=== PATIENT | female | born 1965 | race Two or more races ===

== ENCOUNTER → 2018-08-03 | Outpatient (CLI) | payer MEDICARE, OTHER ==
[2018-08-03 14:12] VITALS: BP 212/124; PULSE 86; RESP 16
--- NOTE | 2018-08-03 18:43 | P.PAINCN ---
History of Present Illness - Reason for Consult Consult date: 08/03/18 Low back pain, right lower extremity weakness - Chief Complaint Low back pain, right lower extremity weakness - History of Present Illness 52-year-old female presents to clinic as a new patient. She presents with a chief complaint of low back pain and pain radiating down to her right leg. She has had this pain for greater than 7 years. She's been followed up in [place] by both a pain physician and a neurosurgeon. She says she had 1 "injection" that did not provide her with any relief. She had an MRI done but did not bring the CD or the results with her. She's been evaluated by a spine surgeon who said she needs surgery and is actually scheduled to have surgery this Friday. Her surgeon had been prescribing her Rodman, and she is here seeking a prescription for Rodman before her surgery. VAS today is a 7 out of 10 in severity describes it as a throbbing, aching, sharp, constant pain with radiating symptoms into her right lower extremities which include throbbing electric sharp pain. She's noted progressive weakness over the past few years in her right leg. She does not have any complaints of bowel or bladder incontinence, she's never had any lumbar spine surgery, she underwent physical therapy with no benefit, and she is never visited a chiropractor. 13 point review of systems was conducted and negative except as mentioned in HPI Physical exam: Gen: A&O 3, NAD, obese HEENT: Atraumatic, normocephalic, pupils equal and reactive to light Integ: No skin abnormalities or lesions noted CVS: Regular rate and rhythm, adequate peripheral pulses Pulmn: Nonlabored, no wheezing Lumbar spine: Palpation: Tenderness to palpation along paraspinal musculature Inspection: No deformities or scoliosis Range of motion: Pain with flexion Facet loading: Positive bilateral at L4-L5 LOLY test: Negative Reflexes: Diminished patellar and Achilles reflex on the right Neuromuscular: Sensation: Diminished along the L4, L5 and S1 dermatomes on the right. Mostly along dorsal aspect of the foot on the right Motor: 3+/5 (EHL), 4/5 Dorsiflexion, 4/5 Plantar Flexion on right. Gait: Antalgic gait, no assist device utilized Past Medical History Past Medical History: Asthma, Cancer, Diabetes Mellitus, GERD/Reflux, Hyperlipidemia, Osteoarthritis (OA) Additional Past Medical History / Comment(s): MOUTH CANCER. History of Any Multi-Drug Resistant Organisms: None Reported Past Surgical History: Cholecystectomy, Hysterectomy, Orthopedic Surgery Additional Past Surgical History / Comment(s): EYE SURGERY. Past Anesthesia/Blood Transfusion Reactions: No Reported Reaction Smoking Status: Current every day smoker Medications and Allergies Home Medications Medication Instructions Recorded Confirmed Type DULoxetine HCL [Cymbalta] 60 mg PO DAILY 08/03/18 08/03/18 History EPINEPHrine (Auto Inject) [Epipen] 0.3 mg IM DIRECTED 08/03/18 08/03/18 History Ezetimibe [Zetia] 10 mg PO DAILY 08/03/18 08/03/18 History Ibuprofen [Motrin] 800 mg PO Q6H PRN 08/03/18 08/03/18 History Lisinopril [Zestril] 5 mg PO DAILY 08/03/18 08/03/18 History Lovastatin [Mevacor] 10 mg PO HS 08/03/18 08/03/18 History Methocarbamol [Robaxin] 500 mg PO Q4H 08/03/18 08/03/18 History Non-Formulary Drug [Non Formulary 1 tab PO DAILY 08/03/18 08/03/18 History Drug] Omeprazole [PriLOSEC] 10 mg PO DAILY 08/03/18 08/03/18 History Paliperidone Palmitate [Invega 78 mg IM QMONTH 08/03/18 08/03/18 History Sustenna] Sucralfate [Carafate] 1 gm PO DAILY 08/03/18 08/03/18 History Allergies Allergy/AdvReac Type Severity Reaction Status Date / Time bee venom protein (honey bee) Allergy Severe Anaphylaxis Verified 08/03/18 13:47 lemon Allergy Severe Anaphylaxis Verified 08/03/18 13:47 Penicillins Allergy Severe Anaphylaxis Verified 08/03/18 13:47 tramadol [From Ultram] Allergy Severe Anaphylaxis Verified 08/03/18 13:47 tablet vitamins Allergy Severe Anaphylaxis Uncoded 08/03/18 13:47 rootbeer pop Allergy Intermediate Rash/Hives Uncoded 08/03/18 13:47 Physical Exam Vitals: Vital Signs Pulse Resp BP Pulse Ox 08/03/18 14:06 86 16 212/124 95 Intake and Output 08/03/18 08/03/18 08/03/18 06:59 14:59 22:59 Other: Weight 102.965 kg Assessment and Plan Assessment: 1. lumbar radiculopathy 2. Lumbar spondylosis without myelopathy 3. Lumbar degenerative disc disease Plan: 1. Patient having lumbar surgery this Friday, surgery unknown at the moment, instructed the follow-up with her surgeon that any questions regarding acute postoperative pain. He should be able to prescribe her medication for the immediate 3 months following surgery. After that to follow up with her primary care doctor. PQRS Measure Charge Sheet PQRS Narrative: Smoking Status Current every day smoker Do You Want the Pneumonia Vaccine Up to Date Vaccine AT THIS TIME? Blood Pressure 212/124 Pain Intensity [Lower Back] 10 Scale Used Numeric (1 - 10) Hx Alcohol Use (MH) No Home Medications: Ambulatory Orders DULoxetine HCL [Cymbalta] 60 mg PO DAILY 08/03/18 EPINEPHrine (Auto Inject) [Epipen] 0.3 mg IM DIRECTED 08/03/18 Ezetimibe [Zetia] 10 mg PO DAILY 08/03/18 Ibuprofen [Motrin] 800 mg PO Q6H PRN 08/03/18 Lisinopril [Zestril] 5 mg PO DAILY 08/03/18 Lovastatin [Mevacor] 10 mg PO HS 08/03/18 Methocarbamol [Robaxin] 500 mg PO Q4H 08/03/18 Non-Formulary Drug [Non Formulary Drug] 1 tab PO DAILY 08/03/18 Omeprazole [PriLOSEC] 10 mg PO DAILY 08/03/18 Paliperidone Palmitate [Invega Sustenna] 78 mg IM QMONTH 08/03/18 Sucralfate [Carafate] 1 gm PO DAILY 08/03/18
== END | disposition home or self-care (01) ==
LOC: PNWHC3 13:11
PROVIDERS: ATTEND Anesthesiology
DX: M51.16 Intervertebral disc disorders with radiculopathy, lumbar region (principal); M47.26 Other spondylosis with radiculopathy, lumbar region; F17.200 Nicotine dependence, unspecified, uncomplicated; E11.9 Type 2 diabetes mellitus without complications; K21.9 Gastro-esophageal reflux disease without esophagitis; E78.5 Hyperlipidemia, unspecified; J45.909 Unspecified asthma, uncomplicated; Z90.49 Acquired absence of other specified parts of digestive tract; Z90.710 Acquired absence of both cervix and uterus; Z79.899 Other long term (current) drug therapy; Z79.1 Long term (current) use of non-steroidal anti-inflammatories (NSAID); Z91.030 Bee allergy status; Z88.0 Allergy status to penicillin; Z88.6 Allergy status to analgesic agent; Z98.890 Other specified postprocedural states
CPT/HCPCS: 99201

== ENCOUNTER → 2020-07-07 | Outpatient (CLI) | payer MEDICARE, OTHER ==
[2020-07-07 12:27] VITALS: BP 106/70; PULSE 82; RESP 18; TEMP 98.1
--- NOTE | 2020-07-07 12:51 | P.GSHP ---
History of Present Illness H&P Date: 07/07/20 Chief Complaint: abnormal right breat mammogram Natalee is a 54 year old white female seen ij consultation for Chrystal Edwards regarding a mammographic abnormality in the right breast. She had bilateral mammograms performed on which revealed a rounded density in the upper middle right breast with micro-the lobulated borders. This was 0.6 cm from the nipple in 2 to 3 o'clock position. The patient had an ultrasound performed which did not show any specific lesions of concern and the recommendation was that she undergo a stereotactic core biopsy of the nodule. The patient does not feel any new lumps of concern in her breast. She complains of some right breast discomfort for about one year, the pain is worse on the right than the left. The pain does not spread. The pain is tenderness with pressure. She does not complain of any nipple discharge. Caffeine: 4-5 cups coffee and ice tea/day nicotine: no chews tobacco bassem-bromine: occasional Family History: sister: breast cancer cousin (paternal): colon cancer Hormonal History: menarche: 12 , 2 miscarriages, breast fed: no, age at first : 20 menopause: total hysterectomy in 30's for endometriosis BCP: no, estrogen: 1 month after surgery Surgical History: Hysterectomy total Gallbladder Dog bite eye surgery bilateral right shoulder surgery Medical History: asthma back and hip pain suicidal thoughts Bipolar Social History: nicotine: chews tobacco alcohol: stopped drugs: Medical marijuana for back and hip pain - Constitutional Constitutional: Denies chills, Denies fever - EENT Eyes: bilateral as per HPI Ears: bilateral: tinnitus Ears, nose, mouth and throat: Denies headache, Denies sore throat - Breasts Breasts: bilateral: as per HPI - Cardiovascular Comment: asthma Cardiovascular: Denies chest pain, Denies shortness of breath - Respiratory Comment: asthma - Gastrointestinal Comment: PUD - Genitourinary (Female) Genitourinary: Denies dysuria, Denies hematuria - Menstruation Menstruation: Reports post hysterectomy - Musculoskeletal Comment: arthritis, back and hip pain Musculoskeletal: Denies myalgias - Integumentary Integumentary: Denies pruritus, Denies rash - Neurological Neurological: Denies numbness, Denies weakness - Psychiatric Comment: bipolar Psychiatric: Reports anxiety, Reports depression - Endocrine Endocrine: Denies fatigue, Denies weight change - Hematologic/Lymphatic Comment: none - Allergic/Immunologic Allergic/Immunologic: Reports seasonal allergies Past Medical History Past Medical History: Asthma, Diabetes Mellitus, GERD/Reflux, Hyperlipidemia, Osteoarthritis (OA) Additional Past Medical History / Comment(s): MOUTH CANCER. History of Any Multi-Drug Resistant Organisms: None Reported Past Surgical History: Cholecystectomy, Hysterectomy, Orthopedic Surgery Additional Past Surgical History / Comment(s): EYE SURGERY. Past Anesthesia/Blood Transfusion Reactions: No Reported Reaction Past Psychological History: Anxiety, Bipolar, Depression Smoking Status: Former smoker Additional Past Alcohol Use History / Comment(s): CHEWS TOBACCO. History of daily alcohol intake, not current R/T living in longterm Past Drug Use History: Marijuana, Opiates Medications and Allergies Home Medications Medication Instructions Recorded Confirmed Type ALPRAZolam [Xanax] 0.5 mg PO TID 07/03/20 07/03/20 History Albuterol Sulfate [Proair 1 puff INHALATION Q6H PRN 07/03/20 07/03/20 History Digihaler] DULoxetine HCL [Cymbalta] 60 mg PO DAILY 07/03/20 07/03/20 History Divalproex [Depakote] 1,500 mg PO HS 07/03/20 07/03/20 History EPINEPHrine (Auto Inject) [Epipen] 0.3 mg IM ONCE PRN 07/03/20 07/03/20 History Ezetimibe [Zetia] 10 mg PO DAILY 07/03/20 07/03/20 History Lisinopril-Hctz 20-12.5 mg 1 tab PO DAILY 07/03/20 07/03/20 History [Zestoretic 20-12.5] Montelukast [Singulair] 10 mg PO DAILY 07/03/20 07/03/20 History OXcarbazepine [Trileptal] 300 mg PO DAILY 07/03/20 07/03/20 History Paliperidone IM [Invega Sustenna] 234 mg IM QMONTHLY 07/03/20 07/03/20 History Paliperidone [Invega] 3 mg PO DAILY 07/03/20 07/03/20 History Paliperidone [Invega] 9 mg PO DAILY 07/03/20 07/03/20 History Pravastatin Sodium [Pravachol] 20 mg PO DAILY 07/03/20 07/03/20 History clonazePAM [KlonoPIN] 1 mg PO TID 07/03/20 07/03/20 History polyethylene glycoL 3350 [Miralax] 17 gm PO DAILY 07/03/20 07/03/20 History Allergies Allergy/AdvReac Type Severity Reaction Status Date / Time bee venom protein (honey bee) Allergy Severe Anaphylaxis Verified 08/03/18 13:47 lemon Allergy Severe Anaphylaxis Verified 08/03/18 13:47 Penicillins Allergy Severe Anaphylaxis Verified 08/03/18 13:47 tramadol [From Ultram] Allergy Severe Anaphylaxis Verified 08/03/18 13:47 latex Allergy Mild Rash/Hives Verified 07/03/20 12:57 tablet vitamins Allergy Severe Anaphylaxis Uncoded 08/03/18 13:47 rootbeer pop Allergy Intermediate Rash/Hives Uncoded 08/03/18 13:47 Surgical - Exam Vital Signs Temp Pulse Resp BP Pulse Ox 98.1 F 82 18 106/70 98 07/07/20 12:22 07/07/20 12:22 07/07/20 12:22 07/07/20 12:22 07/07/20 12:22 BMI 36.5 - General well developed, well nourished, no distress - Eyes normal ocular movement - ENT normal pinna, normal nares - Neck no masses, trachea midline - Respiratory normal expansion, normal respiratory effort, clear to auscultation - Cardiovascular Rhythm: regular Heart Sounds: normal: S1, S2 Abnormal Heart Sounds: systolic murmur - Abdomen Abdomen: soft - Integumentary normal turgor - Neurologic no disoriented, no combative - Musculoskeletal normal gait - Psychiatric oriented to time, oriented to person, oriented to place, speech is normal, memory intact breast exam: BRA: 36C inspection: Right breast slightly larger than left breast, bilateral grade 3 ptosis Palpation: Right breast: Multiple positional exam fibrocystic changes no discrete mass in the 2 to 3 o'clock position. The radiographic abnormalities noted Right axilla: No adenopathy of concern left breast: Multiple positional exam no dominant masses or nodules of concern fibrocystic changes Left axilla: No adenopathy of concern Results Mammogram and ultrasound results reviewed Assessment and Plan Assessment: Impression: asthma back and hip pain suicidal thoughts Bipolar Systolic ejection murmur Fiber cystic breast changes Radiographic abnormality right breast Plan: 1. Stereotactic core biopsy right breast Medical management of medical conditions This and benefits of procedure discussed with the patient and her caregiver the understand and wish to proceed this will be scheduled in the near future. Cc: Dr. Chrystal Edwards encounter 45 minutes, > 50% of time in planning and counselling
== END | disposition home or self-care (01) ==
LOC: WWCWWP 12:06
PROVIDERS: ATTEND Surgery
DX: Z53.9 Procedure and treatment not carried out, unspecified reason (principal)

== ENCOUNTER → 2020-07-14 | Day surgery (SDC) | payer MEDICARE, OTHER ==
[2020-07-14 07:40] VITALS: RESP 16
--- NOTE | 2020-07-14 09:06 | P.PCN ---
Date of Procedure: 07/14/20 Preoperative Diagnosis: Rounded density of concern upper inner middle right breast Postoperative Diagnosis: Same Procedure(s) Performed: Right breast stereotactic core biopsy Anesthesia: local Surgeon: Vera Garland Pathology: other (Breast tissue) Condition: stable Disposition: same day Indications for Procedure: Mammographic abnormality showing a rounded density of concern in the upper inner mid-breast Operative Findings: Density right breast Description of Procedure: The patient is a 54-year-old white female who was noted to have a radiographic abnormality in the right breast. Stereotactic core biopsy was recommended. An ultrasound had been performed which did not reveal the lesion. Risk and benefits of stereo biopsy were discussed with the patient and she wished to proceed. Alternatives such as watchful waiting resection in the operating room were not recommended. The patient was taken to the stereotactic core biopsy room. She was positioned prone on the stereotactic table. A ekg monitor tech film was obtained. A CC from above approach was utilized. The area of concern was identified. This was targeted. The breast was prepped using Betadine. A 9-gauge T vacuum-assisted core biopsy needle was driven to the correct coordinates. 12 mL of 1% lidocaine were used to anesthetize the area of concern prior to this. The needle was fired. Post fire film was obtained and revealed the needle to be in the correct location. 24 core biopsies were obtained. No radiograph of the specimen was done as this was done for density. A secure anabel clip was placed and noted to be in the correct location. It was believed that the area of concern was adequately sampled. The patient tolerated the procedure in stable condition. The patient will follow with Dr. Arzate next week. The specimen was sent to pathology.
[2020-07-14 09:31] VITALS: BP 120/84; PULSE 71; TEMP 97.7
--- NOTE | 2020-07-14 12:56 | MM ---
EXAMINATION TYPE: MG stereo VAD BX RT DATE OF EXAM: 07/14/2020 COMPARISON: 05/25/2020 CLINICAL HISTORY: Right breast nodule TECHNIQUE: Stereotactic guided core biopsy of right breast. FINDINGS: The procedure of stereotactic guided core biopsy was explained to the patient. Benefits, a lternatives, and risks were discussed. An informed consent was then obtained. [facility]. Shortness pathway was medial approach. I performed the localization, then surgeon, Dr. Huey Brady performed the remainder of the procedure. A vacuum assist ed biopsy gun was used to obtain multiple core samples. The patient tolerated the procedure well without any immediate complication. The patient was kept in the radiology department for short stay after the procedure and then discharged home in stable condi tion. Targeted calcifications are identified in specimen mammogram. Post biopsy mammogram shows the clip to appear in satisfactory position relative to the targeted area of concern on the preprocedure images. IMPRESSION: SUCCESSFUL, UNCOMPLICATED STEREOTACTIC GUIDED CORE BIOPSY OF AREA OF CONCERN IN THE right BREAST, FUL L PATHOLOGY RESULTS TO FOLLOW.
== END ==
LOC: RADMAMWWP 07:18
PROVIDERS: ATTEND Surgery
DX: C50.211 Malignant neoplasm of upper-inner quadrant of right female breast (principal)
CPT/HCPCS: 88305; 88342; 88341; 19081; A4648; J2001

== ENCOUNTER → 2020-07-20 | Outpatient (CLI) | payer MEDICARE, OTHER ==
[2020-07-20 13:14] VITALS: BP 142/95; PULSE 86; RESP 18; TEMP 97.6
--- NOTE | 2020-07-20 13:46 | P.PN ---
Subjective Progress Note Date: 07/20/20 Principal diagnosis: right breast cancer, stage IA Natalee is a 54 year old white female seen ij consultation for Chrystal Edwards regarding a mammographic abnormality in the right breast. She had bilateral mammograms performed on which revealed a rounded density in the upper middle right breast with micro-the lobulated borders. This was 0.6 cm from the nipple in 2 to 3 o'clock position. The patient had an ultrasound performed which did not show any specific lesions of concern and the recommendation was that she undergo a stereotactic core biopsy of the nodule. The patient does not feel any new lumps of concern in her breast. She complains of some right breast discomfort for about one year, the pain is worse on the right than the left. The pain does not spread. The pain is tenderness with pressure. She does not complain of any nipple discharge. She underwent a stereotactic core biopsy and 120 221. 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 Caffeine: 4-5 cups coffee and ice tea/day nicotine: no chews tobacco bassem-bromine: occasional Family History: sister: breast cancer cousin (paternal): colon cancer Hormonal History: menarche: 12 , 2 miscarriages, breast fed: no, age at first : 20 menopause: total hysterectomy in 30's for endometriosis BCP: no, estrogen: 1 month after surgery Surgical History: Hysterectomy total Gallbladder Dog bite eye surgery bilateral right shoulder surgery Medical History: asthma back and hip pain suicidal thoughts Bipolar Social History: nicotine: chews tobacco alcohol: stopped drugs: Medical marijuana for back and hip pain - Constitutional Constitutional: Denies chills, Denies fever - EENT Eyes: bilateral as per HPI Ears: bilateral: tinnitus Ears, nose, mouth and throat: Denies headache, Denies sore throat - Breasts Breasts: bilateral: as per HPI - Cardiovascular Comment: asthma Cardiovascular: Denies chest pain, Denies shortness of breath - Respiratory Comment: asthma - Gastrointestinal Comment: PUD - Genitourinary (Female) Genitourinary: Denies dysuria, Denies hematuria - Menstruation Menstruation: Reports post hysterectomy - Musculoskeletal Comment: arthritis, back and hip pain Musculoskeletal: Denies myalgias - Integumentary Integumentary: Denies pruritus, Denies rash - Neurological Neurological: Denies numbness, Denies weakness - Psychiatric Comment: bipolar Psychiatric: Reports anxiety, Reports depression - Endocrine Endocrine: Denies fatigue, Denies weight change - Hematologic/Lymphatic Comment: none - Allergic/Immunologic Allergic/Immunologic: Reports seasonal allergies Objective - Vital Signs Vital signs: Vital Signs Temp 97.6 F 07/20/20 13:10 Pulse 86 07/20/20 13:10 Resp 18 07/20/20 13:10 BP 142/95 07/20/20 13:10 Pulse Ox 99 07/20/20 13:10 Intake & Output 07/19/20 07/20/20 07/20/20 18:59 06:59 18:59 Weight 90.265 kg - Exam BMI 33.1 - Constitutional General appearance: Present: average body habitus, cooperative - EENT Eyes: Present: EOMI ENT: Present: hearing grossly normal - Neck Neck: Present: normal ROM - Respiratory Respiratory: bilateral: CTA - Cardiovascular Rhythm: regular Heart sounds: normal: S1, S2 Abnormal Heart Sounds: Present: systolic murmur - Integumentary Integumentary Comment(s): Mild ecchymosis right breast at the core biopsy site with a small hematoma approximately 2 x 2 centimeters in size Integumentary: Present: normal turgor - Musculoskeletal Musculoskeletal: Present: gait normal - Psychiatric Psychiatric: Present: A&O x's 3, appropriate affect Assessment and Plan Assessment: Impression: 1. stage IA right breast cancer 2. asthma 3. systolic murmur 4. bipolar Plan: 1. Present case at tumor board 2. Patient wishes to have breast preservation if possible, surgical treatment will be needle localization partial mastectomy, sentinel node injection sentinel node biopsy, possible axillary node dissection, onco-plastic tissue transfer, possible mastopexy incision 3. Cardiac clearance 4. Medical clearance Treatment options were discussed with the patient and her caregiver. Treatment options of the breast to include lumpectomy, mastectomy plus or minus reconstruction, sentinel node biopsy, possible axillary node dissection. Risks and benefits were discussed. These include but are not limited to bleeding, infection, reaction to the anesthetic. The possibility of numbness to the inner arm, lymphedema, injury to the thoracodorsal and long thoracic nerves were also discussed. The patient understands these and also her caregiver understands these and she wishes to proceed with a lumpectomy if at all possible. Secondary to her systolic murmur I would recommend cardiac and medical clearance. CC: Chrystal Edwards encounter 45 minutes, time spent in reviewing medical records, examination, and counselling.
== END | disposition home or self-care (01) ==
LOC: WWCWWP 13:04
PROVIDERS: ATTEND Surgery
DX: Z53.9 Procedure and treatment not carried out, unspecified reason (principal)

== ENCOUNTER 2020-08-08 10:04 | Day surgery (SDC) | payer MEDICARE, OTHER ==
[~2020-08-08 10:04] MED LIST: DEXAMETHASONE SOD PHOSPHATE 4 MG/ML 1 ML VIAL IV ONE; HEPARIN SODIUM,PORCINE 5,000 UNIT/ML 1 ML VIAL SQ PRN; HYDROmorphone 0.5 MG/0.5 ML SYRINGE IVP PRN; LACTATED RINGERS 1,000 ML IV SCH; LIDOCAINE 1% (10MG/ML) FOR IV START INTRADERMA PRN; MIDAZOLAM 2 MG/2 ML VIAL IV PRN; ONDANSETRON 4 MG/2 ML VIAL IVP ONE; Pre Op ABX Message 1 EACH MISC MISCELLANE ONE; fentaNYL (PF) 50 MCG/ML 2 ML AMP IV PRN
[2020-08-08 11:27] VITALS: RESP 16
[2020-08-08] MEDS ORDERED: LIDOCAINE 1% INJ 10MG/ML (20 ML MDV) SQ ONE (11:31)
--- NOTE | 2020-08-08 12:55 | P.NAPBC ---
NAPBC Queries - NAPBC Queries Was patient's case review presented at [facility] tumor board? If no, comment.: Yes Was patient's pathology reviewed at [facility]? If no, comment.: Yes Was breast conservation surgery offered? If no, comment.: Yes Was sentinel node biopsy offered? If no, comment.: Yes Was diagnosis confirmed by percutaneous core biopsy? If no, comment.: Yes Is patient mastectomy patient?: No Was a preop referral to reconstructive surgeon offered?: Yes (patient opted for breast conservation) Clinical Stage: stage IA right breast
[2020-08-08] MEDS ORDERED: LIDOCAINE 1% INJ 10MG/ML (20 ML MDV) ONE (13:24)
[2020-08-08] MEDS ORDERED: SUCCINYLCHOLINE CHLORIDE 100 MG/5 ML SYR IV ONE (13:24)
[2020-08-08] MEDS ORDERED: MIDAZOLAM 2 MG/2 ML VIAL ONE (13:24)
[2020-08-08] MEDS ORDERED: PHENYLEPHRINE-0.9% NACL SYG 1,000 MCG/10 ML SYRINGE ONE (13:24)
[2020-08-08] MEDS ORDERED: PROPOFOL 10 MG/ML 20 ML VIAL IV ONE (13:24)
[2020-08-08] MEDS ORDERED: fentaNYL (PF) 50 MCG/ML 2 ML AMP ONE (13:24)
--- NOTE | 2020-08-08 13:48 | NM ---
EXAMINATION TYPE: NM sentinel node injection DATE OF EXAM: 08/08/2020 COMPARISON: NONE INDICATION: Abnormal mammogram. Informed consent was obtained. A timeout was performed. The area around the right nipple was cleansed with alcohol. The skin was anesthetized with 1% Lidoca ine with sodium bicarbonate. In a single dose, a total of 518 millicuries Technetium 99m Tilmanocept was injected. The patient tolerated the procedure very well. IMPRESSIONS: 1.. Successful injection for sentinel node evaluation.
[2020-08-08] MEDS ORDERED: LACTATED RINGERS 1,000 ML IV ONE (15:13)
--- NOTE | 2020-08-08 15:17 | MM ---
EXAMINATION TYPE: MG pre op needle loc RT DATE OF EXAM: 08/08/2020 COMPARISON: 07/14/2020 mammogram, 04/26/2020 mammogram CLINICAL HISTORY: Malignancy right breast TECHNIQUE: Needle localization with wire placement and surgical excision of area of concern in the right breast. FINDINGS: The procedure of needle localization with wire placement for surgical excision was explained to the patient. Risk, benefits, and alternatives were discussed. An informed consent was then obtained. A timeout was performed. The overlying skin was prepped and draped in usual sterile fashion. Lidocaine 1% was used as anesthetic into the skin and subcutaneous tissue up to the level of area of concern. A 7 cm needle was used. This was placed via a craniocaudal superior approach under mammographic guidance. Subsequent 90 degrees mammogram show the needle to be in satisfactory position relative to the targeted area. The wire was placed through the needle and the needle was withdrawn. The wire failed to deploy. The needle was incompletely withdrawn so was readvanced. The repeat image has the needle at the correct depth in the wire was placed. Due to the motion repeat craniocaudal view was obtained. Wire appears to be anteriorly deployed. A new wire will placed for localization. A 7 cm needle was used. This was placed via a craniocaudal superior approach under mammographic guidance. Given the repositioning on the craniocaudal view, the localization wire is approximately 0.5 cm lateral to the initial wire. Subsequent 90 degrees mammogram show the needle to be in satisfactory position relative to the targeted area. In placement of the needle patient experienced bleeding requiring direct pressure which was then controlled. The wire was placed through the needle and the needle was withdrawn. Positioning was confirmed in 2 views. This appears to be well-positioned adjacent to the surgical clip. This wire was marked with the tape flag. The wires were fixed to patient's skin. Images were marked for surgeon. Images and wire placement identification was discussed with the referring surgeon. The patient tolerated the procedure well without any immediate complication. Patient subsequently had sentinel node injection. Specimen: The wire and the targeted surgical clip are identified within the specimen mammogram. IMPRESSION: 1. Successful wire localization and excision. Recommendations: 1. Recommendations are pending pathology results. Pathology Results: Malignant A. SENTINEL LYMPH NODES, EXCISION: Four sentinel lymph nodes, each negative for carcinoma. (0/4) CK7 and JORDYN stains with appropriate controls on blocks A1- A4, negative for carcinoma. B. AXILLARY LYMPH NODES, RIGHT, EXCISION: Three axillary lymph nodes, each negative for carcinoma. (0/3). C. SKIN, RIGHT BREAST, EXCISION; Benign skin, negative for malignancy. D. RIGHT BREAST, NEEDLE LOCALIZATION, PARTIAL MASTECTOMY/LUMPECTOMY: Invasive ductal carcinoma, Grade 2 (See Surgical Pathology Cancer Case Summary and Comment). E. BREAST, NEW MEDIAL MARGIN, EXCISION: Benign breast tissue and benign margin. Negative for carcinoma. F. BREAST, NEW LATERAL MARGIN, EXCISION: Benign breast tissue and benign margin. Negative for carcinoma. Recommendation Therapy and follow up. MTDD
--- NOTE | 2020-08-08 15:46 | P.OP ---
Date of Procedure: 08/08/20 Preoperative Diagnosis: right Breast invasive ductal carcinoma Postoperative Diagnosis: Same Procedure(s) Performed: Needle localization partial mastectomy, mastopexy, onco-plastic tissue transfer 126 cm Anesthesia: CHIPA Surgeon: Vera Garland Estimated Blood Loss (ml): 25 IV fluids (ml): 850 Pathology: other ([place] lymph node, breast tissue) Condition: stable Disposition: same day Indications for Procedure: Right breast invasive ductal carcinoma Operative Findings: Fibrofatty breast tissue Description of Procedure: Is a 54-year-old white female who was diagnosed with right breast invasive ductal carcinoma. She opted for a lumpectomy and sentinel node biopsy. She was first seen in the radiology department with the area of concern was localized and radioactive was injected in the periareolar region. The patient was taken back to the preoperative area. The markings for mastopexy incision were placed. The patient was then taken to the operating room and following induction of anesthesia the neoprobe was used to interrogate the axilla. The area of increased radioactivity was identified. The patient was prepped and draped in an incision was made in the axilla using the neoprobe as a guide. The radioactive lymph node was identified. The count was 706 at 10 seconds. The background count was 9. Additionally there were several palpable lymph nodes superficial to the radioactive node which were removed as well. No other lymph nodes of concern were identified. The area of the breast was approached. The markings for the crescent mastopexy were again reinforced. The apex of the areolar was moved superiorly approximately 3 cm. on the meridian line. The skin in the crescent shape was de-epithelialized. The breast parenchyma was entered. There were [address] one was removed and the second was identified and the tissue around the shaft of the needle was widely excised. The posterior dissection was down to the pectoralis muscle of the chest wall. The specimen was painted for orientation and x-ray confirmed that the area of concern had been removed. Additional medial and lateral margins were obtained and painted. The cavity was 9 x 6 cm, 4 x 7 cm of tissue was mobilized laterally 7 x 6 cm of tissue was mobilized medially. A total of 126 cm of tissue was mobilized. The medial and lateral pillars of tissue were brought together using 3-0 Vicryl suture. Titanium clips were placed prior to closure of the tissue demarcated cavity. The superficial subcutaneous tissue was closed using 3-0 Vicryl suture. The skin was reapproximated with 4-0 Monocryl and a nylon suture. The patient tolerated the procedure in stable condition. All instrument and sponge counts were correct at the end of the case.
--- NOTE | 2020-08-08 15:48 | P.DS ---
Providers Attending physician: Vera Garland Primary care physician: James Looney Plan - Discharge Summary Discharge Rx Participant: No New Discharge Prescriptions: No Action EPINEPHrine (Auto Inject) [Epipen] 0.3 mg IM ONCE PRN PRN Reason: Anaphylaxis Albuterol Sulfate [Proair Digihaler] 1 puff INHALATION Q6H PRN PRN Reason: Wheezing ALPRAZolam [Xanax] 0.5 mg PO TID Paliperidone IM [Invega Sustenna] 234 mg IM QMONTHLY Montelukast [Singulair] 10 mg PO HS Divalproex [Depakote] 1,500 mg PO 1999 Paliperidone [Invega] 9 mg PO 1999 OXcarbazepine [Trileptal] 300 mg PO 07,1999 DULoxetine HCL [Cymbalta] 120 mg PO 0700 Pravastatin Sodium [Pravachol] 20 mg PO DAILY Lisinopril-Hctz 20-12.5 mg [Zestoretic 20-12.5] 1 tab PO 0700 Ezetimibe [Zetia] 10 mg PO 0700 polyethylene glycoL 3350 [Miralax] 17 gm PO DAILY Paliperidone [Invega] 3 mg PO 0700 clonazePAM [KlonoPIN] 1 mg PO TID EPINEPHrine (Auto Inject) [Epipen] 0.3 mg IM ONCE PRN PRN Reason: Anaphylaxis Discharge Medication List ALPRAZolam [Xanax] 0.5 mg PO TID 07/03/20 [History] Albuterol Sulfate [Proair Digihaler] 1 puff INHALATION Q6H PRN 07/03/20 [History] DULoxetine HCL [Cymbalta] 120 mg PO 0700 07/03/20 [History] Divalproex [Depakote] 1,500 mg PO 199907/03/20 [History] EPINEPHrine (Auto Inject) [Epipen] 0.3 mg IM ONCE PRN 07/03/20 [History] Ezetimibe [Zetia] 10 mg PO 0700 07/03/20 [History] Lisinopril-Hctz 20-12.5 mg [Zestoretic 20-12.5] 1 tab PO 0700 07/03/20 [History] Montelukast [Singulair] 10 mg PO HS 07/03/20 [History] OXcarbazepine [Trileptal] 300 mg PO 699,199907/03/20 [History] Paliperidone IM [Invega Sustenna] 234 mg IM QMONTHLY 07/03/20 [History] Paliperidone [Invega] 3 mg PO 0700 07/03/20 [History] Paliperidone [Invega] 9 mg PO 199907/03/20 [History] Pravastatin Sodium [Pravachol] 20 mg PO DAILY 07/03/20 [History] polyethylene glycoL 3350 [Miralax] 17 gm PO DAILY 07/03/20 [History] EPINEPHrine (Auto Inject) [Epipen] 0.3 mg IM ONCE PRN 08/04/20 [History] clonazePAM [KlonoPIN] 1 mg PO TID 08/04/20 [History] Follow up Appointment(s)/Referral(s): Vera Garland MD [STAFF PHYSICIAN] - 1 Week Activity/Diet/Wound Care/Special Instructions: do not drive may shower after 48 hours wear bra at all times Discharge Disposition: HOME SELF-CARE
[2020-08-08 16:00] VITALS: TEMP 97.5
[2020-08-08] MEDS ORDERED: ACETAMINOPHEN TAB 500 MG TAB ONE (16:54)
[2020-08-08] MEDS ORDERED: ACETAMINOPHEN TAB 500 MG TAB PO ONE (16:58)
[2020-08-08 17:10] VITALS: BP 127/83; PULSE 80
--- NOTE | 2020-08-14 15:31 | CDI ---
Date: 08.14.20 CDS/Pipe Blanks Cut Off Saw Operator Name: Maria G Norwood Phone: If any questions, call Flavia Lopez Television News Producer at [phone] Patient Name: Natalee Manning Admit Date 08.08.20 Discharge Date: 08.08.20 ATTENTION: The [facility] Coding Staff appreciate your assistance in clarifying documentation. Please respond to the clarification below the line at the bottom and electronically sign. The [facility] Coding staff will review the response and follow-up if needed. Please note: Queries are made part of the Legal Health Record. If you have any questions, please contact the Television News Producer. Dear Dr. Garland In order to code to the greatest specificity and for the greatest reimbursement I need the following information: Please document whether the the sentinel node dissection was __deep axillary __superficial axillary Thank you for your kind consideration. This was a deep axillary node. MTDD
== END 2020-08-08 17:32 | disposition home or self-care (01) ==
LOC: OR 10:04 → EEVIPCON 10:04 → OR 17:32
PROVIDERS: ATTEND Surgery
DX: C50.911 Malignant neoplasm of unspecified site of right female breast (principal); J45.909 Unspecified asthma, uncomplicated; R01.1 Cardiac murmur, unspecified; F31.9 Bipolar disorder, unspecified; M25.559 Pain in unspecified hip; M54.9 Dorsalgia, unspecified; M19.90 Unspecified osteoarthritis, unspecified site; F17.220 Nicotine dependence, chewing tobacco, uncomplicated; K08.89 Other specified disorders of teeth and supporting structures; I10 Essential (primary) hypertension; E78.5 Hyperlipidemia, unspecified; Z91.040 Latex allergy status; Z88.0 Allergy status to penicillin; Z88.5 Allergy status to narcotic agent; Z88.8 Allergy status to other drugs, medicaments and biological substances; Z17.0 Estrogen receptor positive status [ER+]; Z78.0 Asymptomatic menopausal state; Z90.710 Acquired absence of both cervix and uterus; Z87.42 Personal history of other diseases of the female genital tract; Z79.890 Hormone replacement therapy; Z98.890 Other specified postprocedural states; Z87.828 Personal history of other (healed) physical injury and trauma; Z86.59 Personal history of other mental and behavioral disorders; Z79.899 Other long term (current) drug therapy; Z90.49 Acquired absence of other specified parts of digestive tract; Z80.3 Family history of malignant neoplasm of breast; Z80.0 Family history of malignant neoplasm of digestive organs
CPT/HCPCS: 19301; 19316; 14301; 14302 ×3; 38525; 88305; 88342; 88307; 88341; 76098; 38792; A9520; J2250; J1644; J1100; J2405; J2001; J3010; J2370; J0330; J2704

== ENCOUNTER → 2020-08-17 | Outpatient (CLI) | payer MEDICARE, OTHER ==
[2020-08-17 13:03] VITALS: BP 100/68; PULSE 66; RESP 18; TEMP 97.9
--- NOTE | 2020-08-17 13:21 | P.PN ---
Subjective Progress Note Date: 08/17/20 Principal diagnosis: Postop right breast sentinel node biopsy and lumpectomy for 4 mm invasive ductal carcinoma A 54-year-old white female status post right breast lumpectomy and sentinel node biopsy on . Pathology revealed margins negative for cancer and lymph nodes negative. The patient states that she has no complaints following the procedure. The area is chewing tobacco. She is not wearing a support bra. Objective - Vital Signs Vital signs: Vital Signs Temp 97.9 F 08/17/20 13:00 Pulse 66 08/17/20 13:00 Resp 18 08/17/20 13:00 BP 100/68 08/17/20 13:00 Pulse Ox 100 08/17/20 13:00 Intake & Output 08/16/20 08/17/20 08/17/20 18:59 06:59 18:59 Weight 90.265 kg - Constitutional General appearance: Present: average body habitus - EENT Eyes: Present: EOMI ENT: Present: hearing grossly normal - Respiratory Respiratory: bilateral: CTA - Cardiovascular Rhythm: regular Heart sounds: normal: S1, S2 - Integumentary Integumentary: Present: normal turgor - Musculoskeletal Musculoskeletal: Present: gait normal - Psychiatric Psychiatric Comment(s): Patient is seen with her caregiver - Additional findings Additional findings: Incision clean and dry, no evidence of infection Assessment and Plan Assessment: Impression: 1. Patient status post right breast lumpectomy and sentinel node biopsy, the patient is margins are negative and lymph nodes are negative Plan: Follow up with medical oncology Follow-up radiation oncology Sutures removed today Follow up here in 2 weeks for discussions regarding incision otherwise will follow. In 3 months Wear supportive bra Stopped tobacco utilization CC: Chrystal Edwards
== END | disposition home or self-care (01) ==
LOC: WWCWWP 12:53
PROVIDERS: ATTEND Surgery
DX: Z98.890 Other specified postprocedural states (principal)

== ENCOUNTER → 2020-08-31 | Outpatient (CLI) | payer MEDICARE, OTHER ==
[2020-08-31 09:45] VITALS: BP 111/74; PULSE 68; RESP 18; TEMP 98.1
--- NOTE | 2020-08-31 10:09 | P.PN ---
Progress Note - Text Progress Note Date: 08/31/20 A 54-year-old white female status post right breast lumpectomy and sentinel node biopsy on . Pathology revealed margins negative for cancer and lymph nodes negative. The patient states that she has no complaints following the procedure. She has stopped chewing tobacco. She is not wearing a support bra. Physical examination: Lungs: Clear Heart: Regular rate and rhythm Incision: The lateral aspect of the mastopexy incision has a scab on it but this is not open and there is no drainage She has some fullness in the breast itself most likely related to seroma/resolved in hematoma Left axillary fullness incision is clean and dry Impression: 1. Patient status post right breast lumpectomy sentinel node biopsy, margins are negative and lymph nodes are negative Plan: 1. Follow-up medical oncology 2. Follow-up radiation oncology 3. Follow-up in 2 weeks to reevaluate incision, follow-up sooner if any questions or concerns 4. Patient does not like to wear her bra, a Fco wrap was placed today and she states that she would like to wear this CC: Krista Edwards
== END ==
LOC: WWCWWP 09:28
PROVIDERS: ATTEND Surgery
DX: Z09 Encounter for follow-up examination after completed treatment for conditions other than malignant neoplasm (principal); F17.200 Nicotine dependence, unspecified, uncomplicated; Z90.11 Acquired absence of right breast and nipple

== ENCOUNTER → 2020-09-22 | Outpatient (CLI) | payer MEDICARE, OTHER ==
[2020-09-22 12:27] VITALS: BP 115/76; PULSE 85; RESP 18; TEMP 97.9
--- NOTE | 2020-09-22 12:59 | P.PN ---
Progress Note - Text Progress Note Date: 09/22/20 A 54-year-old white female status post right breast lumpectomy and sentinel node biopsy on . Pathology revealed margins negative for cancer and lymph nodes negative. The patient states that she has no complaints following the procedure. She has stopped chewing tobacco. She is not wearing a support bra. Physical examination: Lungs: Clear Heart: Regular rate and rhythm Incision: The lateral aspect of the mastopexy incision has a scab on it but this is not open and there is no drainage; there is fullness in the breast related to seroma/resolving hematoma Left axillary incision is clean and dry Impression: 1. Patient status post right breast lumpectomy sentinel node biopsy, margins are negative and lymph nodes are negative Plan: 1. Follow-up medical oncology 2. Follow-up radiation oncology 3. Follow-up 1 1/2 weeks to reevaluate incision, follow-up sooner if any que stions or concerns 4. Patient does not like to wear her bra, a Fco wrap was placed today and she states that she would like to wear this
--- NOTE | 2020-09-22 13:02 | P.PCN ---
Date of Procedure: 09/22/20 Preoperative Diagnosis: Seroma/resolving hematoma right breast Postoperative Diagnosis: same Procedure(s) Performed: Aspiration seroma/resolving hematoma Anesthesia: local Surgeon: Vera Garland Pathology: none sent Condition: stable Disposition: same day Indications for Procedure: Seroma/resolving hematoma right breast Operative Findings: 175 mL of brown-colored fluid indicative of resolving hematoma/seroma formation Description of Procedure: The area of the right breast was prepped using alcohol. 3 mL of 1% lidocaine were used to anesthetize the area of concern. An 18-gauge needle on a 20 mL syringe was inserted into the area of concern. Was necessary to empty the syringe several times and approximately 175 mL of dark colored fluid was removed. The fluid was consistent with seroma and resolving hematoma. The patient stated she felt better after the area had been aspirated.
== END ==
LOC: WWCWWP 12:14
PROVIDERS: ATTEND Surgery
DX: Z08 Encounter for follow-up examination after completed treatment for malignant neoplasm (principal); Z85.3 Personal history of malignant neoplasm of breast; Z98.890 Other specified postprocedural states

== ENCOUNTER → 2020-10-05 | Outpatient (CLI) | payer MEDICARE, OTHER ==
[2020-10-05 12:26] VITALS: BP 120/80; PULSE 80; RESP 18; TEMP 98.1
--- NOTE | 2020-10-05 12:41 | P.PN ---
Progress Note - Text Progress Note Date: 10/05/20 A 54-year-old white female status post right breast lumpectomy and sentinel node biopsy on . Pathology revealed margins negative for cancer and lymph nodes negative. The patient states that she has no complaints following the procedure. She has stopped chewing tobacco. She is not wearing a support bra. Approximately 2 weeks ago she was seen in a seroma 270 mL was drained. Today she has a much smaller seroma. And is recommended that what is there be drain. She does not complain of any pain in her breasts. Physical examination: Lungs: Clear Heart: S1-S2, systolic ejection murmur Incision: Incision clean and dry no drainage; there is reduced fullness in the breast related to seroma/resolving hematoma; small seroma is present Left axillary incision is clean and dry Impression: 1. Patient status post right breast lumpectomy sentinel node biopsy, margins are negative and lymph nodes are negative 2. Decreased seroma right breast, the area was aspirated for 34 mL Area of concern in the right breast was prepped using alcohol. One percent lidocaine was used to anesthetize the skin. 18-gauge needle and a 20 mL syringe was used to aspirate seroma. Approximately 34 mL was aspirated with resolution of the seroma. Patient is doing well at this time Plan: 1. Follow-up medical oncology 2. Follow-up radiation oncology 3. Follow-up 1 1/2 weeks to reevaluate incision, follow-up sooner if any questions or concerns 4. Patient does not like to wear her bra, a Fco wrap was placed today and she states that she would like to wear this
== END ==
LOC: WWCWWP 11:56
PROVIDERS: ATTEND Surgery
DX: Z53.9 Procedure and treatment not carried out, unspecified reason (principal)

== ENCOUNTER → 2020-10-12 | Outpatient (CLI) | payer MEDICARE, OTHER ==
[2020-10-12 10:02] VITALS: BP 118/85; PULSE 84; RESP 16; TEMP 98.3
--- NOTE | 2020-10-12 10:23 | P.PN ---
Subjective Progress Note Date: 10/12/20 A 54-year-old white female status post right breast lumpectomy and sentinel node biopsy on . Pathology revealed margins negative for cancer and lymph nodes negative. The patient states that she has no complaints following the procedure. She has stopped chewing tobacco. She is not wearing a support bra. Approximately 3 weeks ago she was seen in a seroma 270 mL was drained. Today she has a much smaller seroma. Last week approximately 34 mL of fluid was aspirated. And is recommended that what is there be drained. She does not complain of any pain in her breasts. Physical examination: Lungs: Clear Heart: S1-S2, systolic ejection murmur Incision: Incision clean and dry no drainage; there is reduced fullness in the breast related to seroma/resolving hematoma; small seroma is present Left axillary incision is clean and dry Impression: 1. Patient status post right breast lumpectomy sentinel node biopsy, margins are negative and lymph nodes are negative 2. Decreased seroma right breast, the area was aspirated for 25 mL Area of concern in the right breast was prepped using alcohol. One percent lidocaine was used to anesthetize the skin. 18-gauge needle and a 20 mL syringe was used to aspirate seroma. Approximately 25 mL was aspirated with resolution of the seroma. Patient is doing well at this time Plan: 1. Follow-up medical oncology 2. Follow-up radiation oncology 3. Follow-up 1 1/2 weeks to reevaluate incision, follow-up sooner if any questions or concerns 4. Patient does not like to wear her bra, a Fco wrap was placed today and she states that she would like to wear this Objective - Vital Signs Vital signs: Vital Signs Temp 98.3 F 10/12/20 10:00 Pulse 84 10/12/20 10:00 Resp 16 10/12/20 10:00 BP 118/85 10/12/20 10:00 Pulse Ox 100 10/12/20 10:00 Intake & Output 10/11/20 10/12/20 10/12/20 18:59 06:59 18:59 Weight 93.44 kg
== END | disposition home or self-care (01) ==
LOC: WWCWWP 09:51 → EEVIPCON 09:51
PROVIDERS: ATTEND Surgery
DX: L76.34 Postprocedural seroma of skin and subcutaneous tissue following other procedure (principal); F17.200 Nicotine dependence, unspecified, uncomplicated; Z98.890 Other specified postprocedural states

== ENCOUNTER → 2020-10-20 | Outpatient (CLI) | payer MEDICARE, OTHER ==
[2020-10-20 09:33] VITALS: BP 116/81; PULSE 107; RESP 18; TEMP 100.9
--- NOTE | 2020-10-20 10:16 | P.PN ---
Progress Note - Text Progress Note Date: 10/20/20 A 54-year-old white female status post right breast lumpectomy and sentinel node biopsy on . Pathology revealed margins negative for cancer and lymph nodes negative. The patient states that she has no complaints following the procedure. She has stopped chewing tobacco. She is not wearing a support bra. Approximately 4 weeks ago she was seen and a seroma 270 mL was drained. Last week she has a much smaller seroma. Two weeks approximately 34 mL of fluid was aspirated. She started radiation therapy on Friday of this week. At radiation she was told she did not have any recurrent seroma. Physical examination: Lungs: Clear Heart: S1-S2, systolic ejection murmur Incision: Incision clean and dry no drainage; there is reduced fullness in the breast related to seroma/resolving hematoma; small seroma is present Left axillary incision is clean and dry Aspiration of seroma and placement of 3-0 nylon suture to reinforce incision: The area of the breast was prepped using alcohol one percent lidocaine was used to necessary of the skin in 18-gauge needle on a 20 mL syringe was inserted into the area of fluctuance in 15 mL of fluid was obtained. This caused resolution of the seroma the superior aspect of the incision shows a small area of attenuation this is not open but the area was reinforced using 3-0 nylon suture. The patient tolerated the procedure in stable condition Impression: 1. Patient status post right breast lumpectomy sentinel node biopsy, margins are negative and lymph nodes are negative 2. Decreased seroma right breast, the area was aspirated for 25 mL asked week, this week 15 mL of serous fluid was aspirated Area of concern in the right breast was prepped using alcohol. One percent lidocaine was used to anesthetize the skin. 18-gauge needle and a 20 mL syringe was used to aspirate seroma. Approximately 15 mL was aspirated with resolution of the seroma. Incision was prepped using alcohol superior aspect was reinforced using 3-0 nylon suture. Patient is doing well at this time Plan: 1. Follow-up medical oncology 2. Follow-up radiation oncology 3. Follow-up 1 weeks to reevaluate incision, follow-up sooner if any questions or concerns 4. Continue to wear bra 5. Patient is undergoing radiation therapy at this time
== END ==
LOC: WWCWWP 09:17
PROVIDERS: ATTEND Surgery
DX: L76.34 Postprocedural seroma of skin and subcutaneous tissue following other procedure (principal); Z87.891 Personal history of nicotine dependence

== ENCOUNTER → 2020-10-26 | Outpatient (CLI) | payer MEDICARE, OTHER ==
[2020-10-26 09:53] VITALS: BP 98/66; PULSE 83; RESP 18; TEMP 98.3
--- NOTE | 2020-10-26 10:06 | P.PN ---
Progress Note - Text Progress Note Date: 10/26/20 A 54-year-old white female status post right breast lumpectomy and sentinel node biopsy on . Pathology revealed margins negative for cancer and lymph nodes negative. The patient states that she has no complaints following the procedure. She has stopped chewing tobacco. She is not wearing a support bra. Approximately 5 weeks ago she was seen and a seroma 270 mL was drained. Last week she has a much smaller seroma of 15 cc. She started radiation therapy. Last week several sutures were placed to reinforce the incision, the incision appears to be completely healed. Physical examination: Lungs: Clear Heart: Regular rate and rhythm, systolic ejection murmur Incision: Incision clean and dry no drainage; there is no fullness in the breast related to seroma/resolving hematoma; no seroma is present on today's exam Left axillary incision is clean and dry Impression: 1. Patient status post right breast lumpectomy sentinel node biopsy, margins are negative and lymph nodes are negative 2. Decreased seroma right breast, the area was aspirated last week week 15 mL of serous fluid was aspirated Plan: 1. Removal of sutures 2. Follow-up in 4 months 3. follow up sooner if any problems 4. follow up with medical oncology CC: Chrystal Bundy
== END ==
LOC: WWCWWP 09:43
PROVIDERS: ATTEND Surgery
DX: Z09 Encounter for follow-up examination after completed treatment for conditions other than malignant neoplasm (principal); Z98.890 Other specified postprocedural states

== ENCOUNTER → 2021-01-19 | Outpatient (CLI) | payer MEDICARE, OTHER ==
--- NOTE | 2021-01-19 15:38 | P.PN ---
Subjective Progress Note Date: 01/19/21 Principal diagnosis: Stage IA right breast cancer/breakdown of the incision Natalee is a 55-year-old white female status post right breast lumpectomy and axillary node resection performed on . Postprocedure she developed a seroma and this was drained several times. The patient subsequently underwent radiation therapy of the whole breast over a three-week period which was completed several months ago. The patient was seen in the emergency room at [facility] on secondary to an opening in the incision, she returned on with a complaint of discomfort at this site. She was referred to our office. She did not receive any chemotherapy. She is on anastrozole. Caffeine: 4-5 cups coffee and ice tea/day nicotine: no chews tobacco bassem-bromine: occasional Family History: sister: breast cancer cousin (paternal): colon cancer Hormonal History: menarche: 12 , 2 miscarriages, breast fed: no, age at first : 20 menopause: total hysterectomy in for endometriosis BCP: no, estrogen: 1 month after surgery Surgical History: Hysterectomy total Gallbladder Dog bite eye surgery bilateral right shoulder surgery Medical History: asthma back and hip pain suicidal thoughts Bipolar Social History: nicotine: chews tobacco alcohol: stopped drugs: Medical marijuana for back and hip pain - Constitutional Constitutional: Denies chills, Denies fever - EENT Eyes: bilateral as per HPI Ears: bilateral: tinnitus Ears, nose, mouth and throat: Denies headache, Denies sore throat - Breasts Breasts: bilateral: as per HPI - Cardiovascular Comment: asthma Cardiovascular: Denies chest pain, Denies shortness of breath - Respiratory Comment: asthma - Gastrointestinal Comment: PUD - Genitourinary (Female) Genitourinary: Denies dysuria, Denies hematuria - Menstruation Menstruation: Reports post hysterectomy - Musculoskeletal Comment: arthritis, back and hip pain Musculoskeletal: Denies myalgias - Integumentary Integumentary: Denies pruritus, Denies rash - Neurological Neurological: Denies numbness, Denies weakness - Psychiatric Comment: bipolar Psychiatric: Reports anxiety, Reports depression - Endocrine Endocrine: Denies fatigue, Denies weight change - Hematologic/Lymphatic Comment: none - Allergic/Immunologic Allergic/Immunologic: Reports seasonal allergies Objective - Constitutional General appearance: Present: average body habitus - EENT Eyes: Present: EOMI ENT: Present: hearing grossly normal - Neck Neck: Present: normal ROM - Respiratory Respiratory: bilateral: CTA - Cardiovascular Details: Systolic murmur Abnormal Heart Sounds: Present: systolic murmur - Integumentary Integumentary Comment(s): Incision right breast with a 1 cm opening - Psychiatric Psychiatric: Present: A&O x's 3 - Additional findings Additional findings: Breast examination: Right breast incision has approximately 1 cm opening this is probed and irrigated the depth was approximately 1.5 cm. Informed consent is obtained Assessment and Plan Assessment: Impression: asthma back and hip pain suicidal thoughts Bipolar open right breast wound at incision site Plan: 1. Area debrided and packed 2. Appointment with wound clinic 3. Wound packing to be changed daily 4. Abstain from tobacco Cc: Chrystal Edwards
[2021-01-19 16:39] VITALS: BP 108/74; PULSE 94; RESP 18; TEMP 97.7
== END ==
LOC: WWCWWP 14:52
PROVIDERS: ATTEND Surgery
DX: Z53.9 Procedure and treatment not carried out, unspecified reason (principal)

== ENCOUNTER → 2021-04-12 | Outpatient (CLI) | payer MEDICARE, OTHER ==
[2021-04-12 15:26] VITALS: BP 113/78; PULSE 93; RESP 16; TEMP 98.2
--- NOTE | 2021-04-12 16:18 | P.PN ---
Subjective Progress Note Date: 04/12/21 Principal diagnosis: stage IA right breast cancer Stage IA right breast cancer/breakdown of the incision Natalee is a 55-year-old white female status post right breast lumpectomy and axillary node resection performed on . Postprocedure she developed a seroma and this was drained several times. The patient subsequently underwent radiation therapy of the whole breast over a three-week period which was completed Nov 03 2020. The patient was seen in the emergency room at [facility] on secondary to an opening in the incision, she returned on with a complaint of discomfort at this site. She has been seen in would clinic since 02-01-21. She did not receive any chemotherapy. She is on anastrozole. She has had a wound vac for approximately 1 month. She has most recently seen earlier today in the wound clinic. On evaluation today she was noted to have an ulceration at the umbilicus. It appears the patient's last mammogram was approximately May 2020. Note reviewed from Wound Clinic 04-12-21, and Dr. Kay 12-11-20. Caffeine: 4-5 cups coffee and ice tea/day nicotine: no chews tobacco bassem-bromine: occasional Family History: sister: breast cancer cousin (paternal): colon cancer Hormonal History: menarche: 12 , 2 miscarriages, breast fed: no, age at first : 20 menopause: total hysterectomy in 30's for endometriosis BCP: no, estrogen: 1 month after surgery Surgical History: Hysterectomy total Gallbladder Dog bite eye surgery bilateral right shoulder surgery Medical History: asthma back and hip pain suicidal thoughts Bipolar Social History: nicotine: chews tobacco alcohol: stopped drugs: Medical marijuana for back and hip pain - Constitutional Constitutional: Denies chills, Denies fever - EENT Eyes: bilateral as per HPI Ears: bilateral: tinnitus Ears, nose, mouth and throat: Denies headache, Denies sore throat - Breasts Breasts: bilateral: as per HPI - Cardiovascular Comment: asthma Cardiovascular: Denies chest pain, Denies shortness of breath - Respiratory Comment: asthma - Gastrointestinal Comment: PUD - Genitourinary (Female) Genitourinary: Denies dysuria, Denies hematuria - Menstruation Menstruation: Reports post hysterectomy - Musculoskeletal Comment: arthritis, back and hip pain Musculoskeletal: Denies myalgias - Integumentary Integumentary: Denies pruritus, Denies rash - Neurological Neurological: Denies numbness, Denies weakness - Psychiatric Comment: bipolar Psychiatric: Reports anxiety, Reports depression - Endocrine Endocrine: Denies fatigue, Denies weight change - Hematologic/Lymphatic Comment: none - Allergic/Immunologic Allergic/Immunologic: Reports seasonal allergies Objective - Vital Signs Vital signs: Vital Signs Temp 98.2 F 04/12/21 15:18 Pulse 93 04/12/21 15:18 Resp 16 04/12/21 15:18 BP 113/78 04/12/21 15:18 Pulse Ox 98 04/12/21 15:18 Intake & Output 04/11/21 04/12/21 04/12/21 18:59 06:59 18:59 Weight 112.491 kg - Constitutional General appearance: Present: cooperative - EENT Eyes: Present: EOMI ENT: Present: hearing grossly normal - Respiratory Respiratory: bilateral: CTA - Cardiovascular Heart sounds: normal: S1, S2 - Integumentary Integumentary Comment(s): Patient with some pock hurtado over her skin where she picks the skin At the umbilicus there is a small area of ulceration - Psychiatric Psychiatric: Present: A&O x's 3 - Additional findings Additional findings: Breast examination: Right breast one centimeter by 1.6 cm deep wound at the 12 o'clock position; there does not appear to be any infection at this site Palaption: right breast: no dominant masses or nodules of concern Right axilla: No adenopathy of concern Left breast: No dominant masses or nodules of concern on palpation Left axilla: No adenopathy of concern Assessment and Plan Assessment: Impression: Asthma Back and hip pain Bipolar Systolic ejection murmur Fibrocystic breast changes Stage IA right breast cancer no evidence of recurrent disease Chronic wound 12 o'clock position right breast Chronic tobacco use Wound at the umbilicus being treated at wound clinic Plan: At this time wound is being packed with Aquacel silver Will contact wound clinic for further recommendation Bilateral mammogram May 2020 Patient again encouraged to stop tobacco use Follow-up when necessary 2 weeks CC: Dr. Looney
== END ==
LOC: WWCWWP 15:02
PROVIDERS: ATTEND Surgery
DX: C50.911 Malignant neoplasm of unspecified site of right female breast (principal); N60.19 Diffuse cystic mastopathy of unspecified breast; J45.909 Unspecified asthma, uncomplicated; M54.9 Dorsalgia, unspecified; M25.559 Pain in unspecified hip; R01.1 Cardiac murmur, unspecified; N64.89 Other specified disorders of breast; F17.200 Nicotine dependence, unspecified, uncomplicated; Z80.3 Family history of malignant neoplasm of breast; Z79.811 Long term (current) use of aromatase inhibitors; Z88.0 Allergy status to penicillin; Z91.040 Latex allergy status; Z91.030 Bee allergy status; Z88.5 Allergy status to narcotic agent; Z88.8 Allergy status to other drugs, medicaments and biological substances

== ENCOUNTER → 2021-07-12 | Outpatient (CLI) | payer MEDICARE, OTHER ==
--- NOTE | 2021-07-12 12:55 | MR ---
MRI brain without contrast HISTORY: Tremors, memory loss Multiplanar multisequence imaging through the brain, no comparisons There is no restricted diffusion to suggest subacute ischemia. Periventricular, pericallosal, subcort ical confluent and scattered hyperintensities are present on inversion recovery T2-weighted sequences , approximately 50 lesions are present. There is a partially empty sella. Sclerosis in, cervical nae uring junction, cerebellopontine angles are within normal limits. There are expected vascular flow vo ids. Orbits show symmetric appearance. There is no hemorrhage or hydrocephalus. Paranasal sinuses are well aerated. IMPRESSION: Findings may be due to chronic small vessel ischemia, hypertension, migraine headaches, L yme disease, vasculitis, multiple sclerosis is not excluded.
== END | disposition home or self-care (01) ==
LOC: RADMRIMAIN 07-05 16:21
PROVIDERS: ATTEND Nurse Practitioner Family
DX: R25.1 Tremor, unspecified (principal); R41.3 Other amnesia
CPT/HCPCS: 70551

== ENCOUNTER → 2021-09-04 | Outpatient (CLI) | payer MEDICARE, OTHER ==
[2021-09-04 19:53] LABS: Basophils # (A) 0.06 X 10*3/uL (0.00-0.10); Basophils % (A) 0.5 %; Eosinophils # (A) 0.07 X 10*3/uL (0.04-0.35); Eosinophils % (A) 0.6 %; HCT 39.8 % (37.2-46.3); HGB 12.5 g/dL (12.0-15.0); Immature Grans, Automated 1.6 %; Lymphocytes % (A) 20.3 %; MCH 30.3 pg (27.0-32.0); MCHC 31.4 g/dL (32.0-37.0); MCV 96.4 fL (80.0-97.0); Mean Platelet Volume 9.4 fL (9.5-12.2); Monocytes # (A) 0.92 X 10*3/uL (0.20-1.00); Monocytes % (A) 7.8 %; NRBC Per 100 WBC 0 /100 WBCS (0.0-0.0); Neutrophils # (A) 8.21 X 10*3/uL (1.80-7.70); Neutrophils % (A) 69.2 %; Platelet Count 380 X 10*3/uL (140-440); RBC 4.13 X 10*6/uL (4.10-5.20); RDW 14.6 % (11.5-14.5); WBC 11.85 X 10*3/uL (4.50-10.00)
[2021-09-04 23:17] LABS: Appearance,Urine Clear (Clear); Bilirubin,Urine Negative (Negative); Blood,Urine Negative (Negative); Color,Urine Yellow (Yellow); Ketones,Urine Trace mg/dL (Negative); Leukocyte Esterase,Urine Negative (Negative); Nitrite,Urine Negative (Negative); Protein,Urine Negative (Negative); Specific Gravity,Urine 1.013 (1.001-1.030)
== END | disposition home or self-care (01) ==
LOC: LABPAT 10:54
PROVIDERS: ATTEND Urology
DX: Z01.812 Encounter for preprocedural laboratory examination (principal); N39.0 Urinary tract infection, site not specified; N81.9 Female genital prolapse, unspecified
CPT/HCPCS: 81003; 85025; 87086

== ENCOUNTER 2021-09-06 10:05 | Day surgery (SDC) | payer MEDICARE, OTHER ==
[2021-07-18 11:44] VITALS: BMI 39.9
--- NOTE | 2021-08-31 14:10 | P.HPIHPCON ---
History of Present Illness H&P Date: 08/31/21 This is a 55 yo female with hx of stage III cystocele option of observation, vaginal repair, and a robotic sacralcolpopexy was discussed with her in detail. Discussed with her the risk and benefit of each approach. She agreed to proceed with a robotic sacral colpopexy. Discussed with her we would be using mesh, discussed the risk which includes but not limited to bleeding, infection, mesh erosion through the vagina, bladder, and rectum, potential of recurrence of the cystocele, and persistent symptoms. discussed the risk of stress urinary incontinence postoperatively.Discussed also with her risk from anesthesia. She understood all the risk and agreed to proceed with robotic sacral colpopexy Consent for Procedure: I have explained the operation/procedure to the patient, including the risks, benefits, side effects, alternative therapies (including not receiving the proposed treatment or service), the likelihood of the patient achieving his/her goals, and potential recuperation problems for the procedure/sedation/analgesia, as well as any blood products, if indicated. I also explained to the patient the risks, benefits and side effects of the alternatives, as well as the risks related to not receiving the proposed procedure, care, treatment, or services. Past Medical History Past Medical History: Asthma, Diabetes Mellitus, Hyperlipidemia, Hypertension, Osteoarthritis (OA) Additional Past Medical History / Comment(s): ?MOUTH CANCER per patient. was previously borderline diabetic, not on any medications currently, vaginal prolapse History of Any Multi-Drug Resistant Organisms: None Reported Past Surgical History: Cholecystectomy, Hysterectomy, Orthopedic Surgery Additional Past Surgical History / Comment(s): EYE SURGERY. sx to repair dog bite, rt shoulder sx Past Anesthesia/Blood Transfusion Reactions: Unable to Obtain Smoking Status: Former smoker - Past Family History Sister(s) Family Medical History: Cancer Additional Family Medical History / Comment(s): breast Medications and Allergies Home Medications Medication Instructions Recorded Confirmed Type ALPRAZolam [Xanax] 0.5 mg PO DAILY PRN 07/03/20 07/18/21 History Albuterol Sulfate [Proair 1 puff INHALATION Q6H PRN 07/03/20 07/18/21 History Digihaler] DULoxetine HCL [Cymbalta] 60 mg PO BID 07/03/20 07/18/21 History Divalproex [Depakote] 1,500 mg PO 2000 07/03/20/26/22 History Ezetimibe [Zetia] 10 mg PO 0700 07/03/20 07/18/21 History Montelukast [Singulair] 10 mg PO HS 07/03/20 07/18/21 History Pravastatin Sodium [Pravachol] 20 mg PO DAILY 07/03/20 07/18/21 History polyethylene glycoL 3350 [Miralax] 17 gm PO DAILY PRN 07/03/20 07/18/21 History EPINEPHrine (Auto Inject) [Epipen] 0.3 mg IM ONCE PRN 08/04/20 07/18/21 History Bumetanide [BUMEX] 0.5 mg PO DAILY 04/12/21 07/18/21 History cloZAPine [Clozaril] 100 mg PO HS 04/12/21 07/18/21 History Anastrozole [Arimidex] 1 mg PO DAILY 07/18/21 07/18/21 History Ascorbic Acid [Vitamin C] 500 mg PO DAILY 07/18/21 07/18/21 History Ibuprofen [Motrin] 800 mg PO BID PRN 07/18/21 07/18/21 History Omeprazole 20 mg PO DAILY 07/18/21 07/18/21 History Potassium Chloride [Klor-Con 10 ER] 10 meq PO DAILY 07/18/21 07/18/21 History lisinopriL [Zestril] 5 mg PO DAILY 07/18/21 07/18/21 History Allergies Allergy/AdvReac Type Severity Reaction Status Date / Time bee venom protein (honey bee) Allergy Severe Anaphylaxis Verified 01/19/21 16:31 lemon Allergy Severe Anaphylaxis Verified 01/19/21 16:31 Penicillins Allergy Severe Anaphylaxis Verified 01/19/21 16:31 tramadol [From Ultram] Allergy Severe Anaphylaxis Verified 01/19/21 16:31 latex Allergy Mild Rash/Hives Verified 01/19/21 16:31 tablet vitamins Allergy Severe Anaphylaxis Uncoded 01/19/21 16:31 rootbeer pop Allergy Intermediate Rash/Hives Uncoded 01/19/21 16:31 Surgical - Exam - General no distress, no pain - Eyes normal ocular movement - ENT normal nares, normal mucosa - Respiratory normal expansion, normal respiratory effort - Abdomen Abdomen: soft, non tender Assessment and Plan Assessment: OR for robotic sacral colpopexy
[~2021-09-06 10:05] MED LIST changes: +GENTAMICIN 120 MG in SODIUM CHLORIDE 0.9% 100 ML IVPB PRN; -HEPARIN SODIUM,PORCINE 5,000 UNIT/ML 1 ML VIAL SQ PRN; +HEPARIN SODIUM,PORCINE/PF 5,000 UNIT/0.5 ML SYRINGE SQ PRN; -LACTATED RINGERS 1,000 ML IV SCH; -MIDAZOLAM 2 MG/2 ML VIAL IV PRN; +ONDANSETRON 4 MG/2 ML VIAL IVP PRN; -Pre Op ABX Message 1 EACH MISC MISCELLANE ONE
[2021-09-06] MEDS ORDERED: LIDOCAINE 1% (10MG/ML) FOR IV START INTRADERMA ONE (10:40)
[2021-09-06] MEDS: LACTATED RINGERS 1,000 ML IV SCH ×2 (10:40→17:39)
[2021-09-06 10:57] LABS: Glucose,Whole Blood 104 mg/dL (75-99)
[2021-09-06] MEDS ORDERED: KETOROLAC 30 MG/ML 1 ML VIAL IVP PRN (12:10)
[2021-09-06] MEDS ORDERED: HYDROcodone/APAP 5-325MG 1 EACH TAB PO PRN (12:11)
[2021-09-06] MEDS ORDERED: GLYCOPYRROLATE 0.2 MG/ML 2 ML VIAL ONE (12:44)
[2021-09-06] MEDS ORDERED: HYDROmorphone (PF) 1 MG/ML ONE (12:44)
[2021-09-06] MEDS ORDERED: SUCCINYLCHOLINE CHLORIDE VIAL 200 MG/10 ML VIAL IV ONE (12:44)
[2021-09-06] MEDS ORDERED: ROCURONIUM 10 MG/ML (5 ML VIAL) IV ONE (12:44)
[2021-09-06] MEDS ORDERED: NEOSTIGMINE 1 MG/ML 10 ML VIAL ONE (12:44)
[2021-09-06] MEDS ORDERED: fentaNYL (PF) 50 MCG/ML 2 ML AMP ONE (12:44)
[2021-09-06] MEDS ORDERED: LIDOCAINE 1% INJ 10MG/ML (20 ML MDV) ONE (12:44)
[2021-09-06] MEDS ORDERED: LABETALOL 5 MG/ML VIAL MDV ONE (12:44)
[2021-09-06] MEDS ORDERED: PROPOFOL 10 MG/ML 20 ML VIAL IV ONE (12:44)
[2021-09-06] MEDS ORDERED: LACTATED RINGERS 1,000 ML IV ONE ×3 (13:49→15:57)
[2021-09-06] MEDS ORDERED: BUPIVACAINE (PF) 0.5% 30 ML VIAL SQ ONE (15:25)
--- NOTE | 2021-09-06 16:42 | P.OP ---
Date of Procedure: 09/06/21 Preoperative Diagnosis: Cystocele, pelvic organ prolapse Postoperative Diagnosis: Same Procedure(s) Performed: Robotic sacral colpopexy, and extensive lysis of adhesion Implants: Y Coloplast mesh Anesthesia: TATIANNA Surgeon: Adam Mcgregor Estimated Blood Loss (ml): 25 Pathology: other Condition: stable Disposition: PACU Indications for Procedure: This is a 55 yo female with hx of stage III cystocele option of observation, vaginal repair, and a robotic sacralcolpopexy was discussed with her in detail. Discussed with her the risk and benefit of each approach. She agreed to proceed with a robotic sacral colpopexy. Discussed with her we would be using mesh, discussed the risk which includes but not limited to bleeding, infection, mesh erosion through the vagina, bladder, and rectum, potential of recurrence of the cystocele, and persistent symptoms. discussed the risk of stress urinary incontinence postoperatively.Discussed also with her risk from anesthesia. She understood all the risk and agreed to proceed with robotic sacral colpopexy Description of Procedure: She was taken to the OR and administered general anesthesia and placed in lithotomy position. Insufflation was obtained using the Veress needle. Next the robotic camera port was placed above the umbilicus, a 8mm robotic port was placed on the right side, an additional 12 mm assistant store manager operations port was placed more laterally. 2 robotic ports were placed on the left. The robot was then docked. Patient had extensive adhesions, involving the small bowel to the pelvis, and the cecum was adherent to the sigmoid colon. Adhesions were taken down sharply, more than 45 minutes were spent lysing adhesions, after all adhesions were taken down the assistant store manager operations sac between the patient's legs with a vaginal sizer. Attention was then carried to the prolapse With firm upward traction on the vagina and angle downwards, and with the monopolar scissors and fenestrated bipolar and the bladder was reflected off the vagina. Minor bleeding points were controlled with bipolar. Once the anterior dissection was completed the attention was directed to the posterior dissection. The assistant store manager operations pushed the sizer in an upwards and the rectum was completely dissected off the vagina down to the perineal body. Again all minor bleeding points were coagulated. Tension was then directed to the sacral promontory. The sigmoid was reflected to the left with the fourth arm, and an incision was made on the peritoneum over the sacral promontory. The entire sacral promontory was dissected, and the fat was excised to expose adequate amount of periosteum and bone to place 2 layers of sutures. Hemostasis was confirmed. The peritoneum posteriorly was incised from the sacral promontory to the vaginal opening to facilitate placement of the mesh. Attention was now directed to the Y mesh. The Y mesh was trimmed to the necessary size and introduced into the body through the 12 mm port. The Y mesh was placed over the vagina with one limb each on the anterior and posterior vaginal wall. Using 2-0 Ethibond interrupted sutures 3 layers of sutures were placed thereby fixing the mesh to the anterior vaginal wall. Care was taken to advance the mesh all the way distally. Attention was then directed to the posterior vaginal wall and the mesh was fixed to the posterior vaginal wall using 2 layers of 2-0 Ethibond, 2 sutures in each layer. Again the sutures were placed as distally as possible to the perineal body. Attention was taken so as to not enter the vagina with the sutures. Once the 2 limbs of the Y mesh was securely placed, attention was directed to the sacral promontory. The assistant store manager operations was asked to push the sizer firmly superiorly and the single Lembert of the Y mesh was then fixed to the sacral promontory in 2 layers with interrupted sutures. Gortex interrupted sutures were used to fix the mesh to the periosteum of the sacral promontory. Once this was completed the sizer was removed from the vagina and inspection of the vagina with a speculum showed complete resolution of the cystocele Hemostasis was again confirmed. A 2-0 V lock was then used to close the peritoneum incision so as to extrapertonialize the mesh completely. All the sutures and mesh pieces were removed. A count was performed which was correct. And the abdomen was desufflated and all ports were removed. All the incisions were closed with 4-0 Monocryl subcuticular sutures and the patient was sent to recovery in stable condition with the Beal catheter
[2021-09-06] MEDS: HEPARIN SODIUM,PORCINE/PF 5,000 UNIT/0.5 ML SYRINGE SQ SCH ×2 (17:39→23:37)
[2021-09-06] MEDS: SODIUM CHLORIDE 0.9% 1,000 ML IV SCH (17:41)
[2021-09-06] MEDS ORDERED: KETOROLAC 15 MG/ML 1 ML VIAL IVP PRN (19:21)
[2021-09-06] MEDS ORDERED: ALPRAZolam 0.5 MG TAB PO PRN (19:28)
[2021-09-06] MEDS ORDERED: polyethylene glycoL 3350 17 GM POWD.PACK PO PRN (19:28)
[2021-09-06] MEDS ORDERED: IBUPROFEN 800 MG TAB PO PRN (19:28)
[2021-09-06] MEDS ORDERED: DIVALPROEX 500 MG TABLET.DR PO SCH (20:00)
[2021-09-06] MEDS ORDERED: cloZAPine 100 MG TAB PO SCH (21:00)
[2021-09-06] MEDS ORDERED: MONTELUKAST 10 MG TAB PO SCH (21:00)
[2021-09-06] MEDS: DULoxetine HCL 60 MG CAPSULE.DR PO SCH (21:04)
[2021-09-07 02:54] VITALS: PULSE 87
[2021-09-07] MEDS ORDERED: EZETIMIBE 10 MG TAB PO SCH (07:00)
[2021-09-07] MEDS: SODIUM CHLORIDE 0.9% 1,000 ML IV SCH (07:07)
[2021-09-07] MEDS ORDERED: PANTOPRAZOLE 40 MG TABLET PO SCH (07:30)
[2021-09-07] MEDS: HEPARIN SODIUM,PORCINE/PF 5,000 UNIT/0.5 ML SYRINGE SQ SCH (07:59)
[2021-09-07] MEDS: DULoxetine HCL 60 MG CAPSULE.DR PO SCH (08:01)
[2021-09-07] MEDS: LACTATED RINGERS 1,000 ML IV SCH ×2 (08:22)
--- NOTE | 2021-09-07 08:27 | P.DS ---
Providers Attending physician: Adam Mcgregor MD Primary care physician: [facility] Course: The patient is 55. She had vaginal prolapse. She underwent a robotic-assisted sacral colpopexy by yesterday. She has done well. Her pain is minimal. Her urine is clear. Her abdomen was soft. I will remove her Beal. She'll be discharged back to her foster assisted later today. Her diet is regular. She'll follow-up in the office in one week. Condition is good. Patient Condition at Discharge: Good Plan - Discharge Summary Discharge Rx Participant: No New Discharge Prescriptions: New HYDROcodone/APAP 5-325MG [Maxwell 5-325] 1 tab PO Q4HR PRN #10 tab PRN Reason: Pain Control No Action Albuterol Sulfate [Proair Digihaler] 1 puff INHALATION Q6H PRN PRN Reason: Wheezing ALPRAZolam [Xanax] 0.5 mg PO DAILY PRN PRN Reason: Anxiety Montelukast [Singulair] 10 mg PO HS Divalproex [Depakote] 1,500 mg PO 2000 DULoxetine HCL [Cymbalta] 60 mg PO BID Pravastatin Sodium [Pravachol] 20 mg PO DAILY Ezetimibe [Zetia] 10 mg PO 0700 polyethylene glycoL 3350 [Miralax] 17 gm PO DAILY PRN PRN Reason: Constipation EPINEPHrine (Auto Inject) [Epipen] 0.3 mg IM ONCE PRN PRN Reason: Anaphylaxis Ibuprofen [Motrin] 800 mg PO BID PRN PRN Reason: Pain lisinopriL [Zestril] 5 mg PO DAILY Omeprazole 20 mg PO DAILY Potassium Chloride [Klor-Con 10 ER] 10 meq PO DAILY Ascorbic Acid [Vitamin C] 500 mg PO DAILY cloZAPine [Clozaril] 100 mg PO HS Bumetanide [BUMEX] 0.5 mg PO DAILY Anastrozole [Arimidex] 1 mg PO DAILY Discharge Medication List ALPRAZolam [Xanax] 0.5 mg PO DAILY PRN 07/03/20 [History] Albuterol Sulfate [Proair Digihaler] 1 puff INHALATION Q6H PRN 07/03/20 [History] DULoxetine HCL [Cymbalta] 60 mg PO BID 07/03/20 [History] Divalproex [Depakote] 1,500 mg PO 199907/03/20 [History] Ezetimibe [Zetia] 10 mg PO 0700 07/03/20 [History] Montelukast [Singulair] 10 mg PO HS 07/03/20 [History] Pravastatin Sodium [Pravachol] 20 mg PO DAILY 07/03/20 [History] polyethylene glycoL 3350 [Miralax] 17 gm PO DAILY PRN 07/03/20 [History] EPINEPHrine (Auto Inject) [Epipen] 0.3 mg IM ONCE PRN 08/04/20 [History] Bumetanide [BUMEX] 0.5 mg PO DAILY 04/12/21 [History] cloZAPine [Clozaril] 100 mg PO HS 04/12/21 [History] Anastrozole [Arimidex] 1 mg PO DAILY 07/18/21 [History] Ascorbic Acid [Vitamin C] 500 mg PO DAILY 07/18/21 [History] Ibuprofen [Motrin] 800 mg PO BID PRN 07/18/21 [History] Omeprazole 20 mg PO DAILY 07/18/21 [History] Potassium Chloride [Klor-Con 10 ER] 10 meq PO DAILY 07/18/21 [History] lisinopriL [Zestril] 5 mg PO DAILY 07/18/21 [History] HYDROcodone/APAP 5-325MG [Maxwell 5-325] 1 tab PO Q4HR PRN #10 tab 09/07/21 [Rx] Follow up Appointment(s)/Referral(s): Adam Mcgregor MD [STAFF PHYSICIAN] - 1 Week Discharge Disposition: TRANSFER TO SNF/ECF
[2021-09-07] MEDS ORDERED: BUMETANIDE 0.5 MG TABLET PO SCH (09:00)
[2021-09-07] MEDS ORDERED: ASCORBIC ACID 500 MG TAB PO SCH (09:00)
[2021-09-07] MEDS ORDERED: ANASTROZOLE 1 MG TAB PO SCH (09:00)
[2021-09-07] MEDS ORDERED: PRAVASTATIN SODIUM 20 MG TAB PO SCH (09:00)
[2021-09-07] MEDS ORDERED: lisinopriL 5 MG TAB PO SCH (09:00)
[2021-09-07 10:05] VITALS: BP 109/72; RESP 16; TEMP 99
== END 2021-09-07 11:19 ==
LOC: OR 10:05 → 4SSUR 15:39 → OR 09-07 11:19
PROVIDERS: ATTEND Urology
DX: N81.10 Cystocele, unspecified (principal); N81.9 Female genital prolapse, unspecified; I10 Essential (primary) hypertension; E78.5 Hyperlipidemia, unspecified; E11.9 Type 2 diabetes mellitus without complications; F31.9 Bipolar disorder, unspecified; J45.909 Unspecified asthma, uncomplicated
CPT/HCPCS: 57282; 58999; 94760; C1781; J0330; J1100; J2710; J2405; J2001; J3010; S0136; J1580; S0170; J1170; J1885; J2704; J1644 ×2; 86850; 86900; 86901

== ENCOUNTER → 2022-05-03 | Outpatient (CLI) | payer MEDICARE, OTHER ==
[2022-05-03 10:11] VITALS: BP 129/84; PULSE 94; RESP 17; TEMP 97.8
--- NOTE | 2022-05-03 10:36 | P.PN ---
Subjective Progress Note Date: 05/03/22 Principal diagnosis: Stage IA right breast cancer Stage IA right breast cancer/breakdown of the incision Natalee is a 56-year-old white female status post right breast lumpectomy and axillary node resection performed on . Pathology revealed an ER/TX positive HER-2/haleigh negative G2 tumor which was 4 mm in size. The surgical margins were free. Several lymph nodes were removed all negative for malignancy. Postprocedure she developed a seroma and this was drained several times. The patient subsequently underwent radiation therapy of the whole breast over a three-week period which was completed Nov 03 2020. The patient was seen in the emergency room at [facility] on secondary to an opening in the incision, she returned on with a complaint of discomfort at this site. She has been seen in woud clinic since 02-01-21. She did not receive any chemotherapy. She is on anastrozole. She has had a wound vac for approximately 1 month. Medical oncology note from Dr. Hernandez 04-18-22 reviewed. Based on this evaluation the patient had a computed tomography scan of the chest abdomen and pelvis which showed no definitive evidence of metastatic disease except several pulmonary nodules of unknown significance. A repeat computed tomography scan will be ordered by medical oncology. The patient was noted to have a CBC of 7522 showing a white count of 12.05. She continues to chew tobacco, she was advised to stop this. It appears the patient's last mammogram was approximately May 2020. Note reviewed from [facility] 04-12-21, and Dr. Kay 12-11-20. Caffeine: 4-5 cups coffee and ice tea/day nicotine: no chews tobacco bassem-bromine: occasional Family History: sister: breast cancer cousin (paternal): colon cancer Hormonal History: menarche: 12 , 2 miscarriages, breast fed: no, age at first : 20 menopause: total hysterectomy in 30's for endometriosis BCP: no, estrogen: 1 month after surgery Surgical History: Hysterectomy total Gallbladder Dog bite eye surgery bilateral right shoulder surgery right knee surgery right breast lumpectomy and axillary node resection Medical History: asthma back and hip pain suicidal thoughts stopped Bipolar Social History: nicotine: chews tobacco; smokes 1-2/day, vapes alcohol: stopped drugs: Medical marijuana for back and hip pain - Constitutional Constitutional: Denies chills, Denies fever - EENT Eyes: bilateral as per HPI Ears: bilateral: tinnitus Ears, nose, mouth and throat: Denies headache, Denies sore throat - Breasts Breasts: bilateral: as per HPI - Cardiovascular Comment: asthma Cardiovascular: Denies chest pain, Denies shortness of breath - Respiratory Comment: asthma - Gastrointestinal Comment: PUD - Genitourinary (Female) Genitourinary: Denies dysuria, Denies hematuria - Menstruation Menstruation: Reports post hysterectomy - Musculoskeletal Comment: arthritis, back and hip pain Musculoskeletal: Denies myalgias - Integumentary Integumentary: Denies pruritus, Denies rash - Neurological Neurological: Denies numbness, Denies weakness - Psychiatric Comment: bipolar Psychiatric: Reports anxiety, Reports depression - Endocrine Endocrine: Denies fatigue, Denies weight change - Hematologic/Lymphatic Comment: none - Allergic/Immunologic Allergic/Immunologic: Reports seasonal allergies Objective - Vital Signs Vital signs: Vital Signs Temp 97.8 F 05/03/22 10:09 Pulse 94 05/03/22 10:09 Resp 17 05/03/22 10:09 BP 129/84 05/03/22 10:09 Pulse Ox 95 05/03/22 10:09 FiO2 Intake & Output 05/02/22 05/03/22 05/03/22 18:59 06:59 18:59 Weight 115.212 kg - Constitutional General appearance: Present: cooperative - EENT Eyes: Present: EOMI ENT: Present: hearing grossly normal - Neck Neck: Present: normal ROM - Respiratory Respiratory: bilateral: CTA - Cardiovascular Heart sounds: normal: S1, S2 - Integumentary Integumentary: Present: normal turgor - Musculoskeletal Musculoskeletal: Present: gait normal - Psychiatric Psychiatric: Present: A&O x's 3, appropriate affect, intact judgment & insight - Additional findings Additional findings: Breast Exam: BRA: 36C Inspection: Bilateral grade 2 ptosis, well-healed scar right breast with some dimpling at the superior periareolar region Palpation: Right breast: Examination reveals fibrocystic changes, postsurgical and postradiation changes, prominent inframammary ridge but no discrete Lungs masses or nodule is of concern Right axilla: No adenopathy of concern Left breast: No dominant masses or nodules of concern, fibrocystic changes Left axilla: No adenopathy of concern Assessment and Plan Assessment: Impression: stage I right breast cancer no evidence of recurrence Romina right breast mammogram on 03-26-22; bilateral mammogram on 09-24-[address] scan pulmonary nodules which were questionable distal be repeated as per medical oncology Plan: Continue anastrozole Nothing which would warrant interventional biopsy at this time Follow-up here in 6 months Repeat bilateral mammogram in September 2022 Obtain results of mammogram done recently and reported a computed tomography scan Patient recommended to stop chewing tobacco, stop smoking, and stop vaping CC: Chrystal Edwards; Dr. Cox
== END | disposition home or self-care (01) ==
LOC: WWCWWP 09:38
PROVIDERS: ATTEND Surgery
DX: Z53.9 Procedure and treatment not carried out, unspecified reason (principal)

== ENCOUNTER → 2022-10-10 | Outpatient (CLI) | payer MEDICARE, OTHER ==
--- NOTE | 2022-10-10 14:24 | P.PN ---
Subjective Progress Note Date: 10/10/22 Principal diagnosis: Stage IA right breast invasive ductal cancer Stage IA right breast cancer/breakdown of the incision Natalee is a 56-year-old white female status post right breast lumpectomy and axillary node resection performed on . Pathology revealed an ER/[place] p ositive HER-2/haleigh negative G2 tumor which was 4 mm in size. The surgical margins were free. Several lymph nodes were removed all negative for malignancy. Postprocedure she developed a seroma and this was drained several times. The patient subsequently underwent radiation therapy of the whole breast over a three-week period which was completed Nov 03 2020. The patient was seen in the emergency room at [facility] on secondary to an opening in the incision, she returned on with a complaint of discomfort at this site. She was seen in wound clinic in 02-01-21. She did not receive any chemotherapy. She is on anastrozole. she was treated with a wound vac, with complete healing of the wound patient had a computed tomography scan of the chest abdomen and pelvis which showed no definitive evidence of metastatic disease except several pulmonary nodules of unknown significance. A repeat computed tomography scan will be ordered by medical oncology. The patient was noted to have a CBC of 7522 showing a white count of 12.05. Bilateral mammogram performed on benign BIRADS 2 The patient is not complaining of any new lumps masses or nodules of concern. She is seen in consultation with Niru Rubio from [facility] Note from Dr. Pool medical oncology of [id number] review: 1. Patient's computed tomography scan was repeated on which showed resolution of groundglass opacity no pulmonary nodules identified 2. Leukocytosis . In the past felt to be multifactorial Patient to follow up with Dr. Pool in March 2023 Patient to continue anastrozole She continues to chew tobacco, she was advised to stop this. Caffeine: 4-5 cups coffee and ice tea/day nicotine: vape, chews tobacco 1 can a day, smokes 1/2 PPD bassem-bromine: occasional Family History: sister: breast cancer cousin (paternal): colon cancer Hormonal History: menarche: 12 , 2 miscarriages, breast fed: no, age at first : 20 menopause: total hysterectomy in 's for endometriosis BCP: no, estrogen: 1 month after surgery Surgical History: Hysterectomy total Gallbladder Dog bite eye surgery bilateral right shoulder surgery right knee surgery right breast lumpectomy and axillary node resection bladder suspension right knee Medical History: asthma back and hip pain suicidal thoughts stopped Bipolar Social History: nicotine: chews tobacco; smokes 1-2/day, vapes alcohol: stopped drugs: Medical marijuana for back and hip pain - Constitutional Constitutional: Denies chills, Denies fever - EENT Eyes: bilateral as per HPI Ears: bilateral: tinnitus Ears, nose, mouth and throat: Denies headache, Denies sore throat - Breasts Breasts: bilateral: as per HPI - Cardiovascular Comment: asthma Cardiovascular: Denies chest pain, Denies shortness of breath - Respiratory Comment: asthma - Gastrointestinal Comment: PUD - Genitourinary (Female) Genitourinary: Denies dysuria, Denies hematuria - Menstruation Menstruation: Reports post hysterectomy - Musculoskeletal Comment: arthritis, back and hip pain Musculoskeletal: Denies myalgias - Integumentary Integumentary: Denies pruritus, Denies rash - Neurological Neurological: Denies numbness, Denies weakness - Psychiatric Comment: bipolar Psychiatric: Reports anxiety, Reports depression - Endocrine Endocrine: Denies fatigue, Denies weight change - Hematologic/Lymphatic Comment: none - Allergic/Immunologic Allergic/Immunologic: Reports seasonal allergies Objective - Vital Signs Vital signs: Vital Signs Temp 97.8 F 05/03/22 10:09 Pulse 94 05/03/22 10:09 Resp 17 05/03/22 10:09 BP 129/84 05/03/22 10:09 Pulse Ox 95 05/03/22 10:09 FiO2 Intake & Output 05/02/22 05/03/22 05/03/22 18:59 06:59 18:59 Weight 115.212 kg - Objective - Constitutional General appearance: Present: cooperative - EENT Eyes: Present: EOMI ENT: Present: hearing grossly normal - Neck Neck: Present: normal ROM - Respiratory Respiratory: bilateral: CTA - Cardiovascular Rhythm: regular Heart sounds: normal: S1, S2 - Gastrointestinal General gastrointestinal: Present: soft - Integumentary Integumentary: Present: normal turgor - Musculoskeletal Musculoskeletal: Present: gait normal - Psychiatric Psychiatric: Present: A&O x's 3, appropriate affect, intact judgment & insight - Additional findings Additional findings: Breast Exam: BRA: 36C Inspection: Bilateral grade 2 ptosis, well-healed scar right breast with some dimpling at the superior periareolar region Palpation: Right breast: Examination reveals fibrocystic changes, postsurgical and postradiation changes, prominent inframammary ridge but no discrete Lungs masses or nodule is of concern Right axilla: No adenopathy of concern Left breast: No dominant masses or nodules of concern, fibrocystic changes Left axilla: No adenopathy of concern Assessment and Plan Assessment: Impression: stage I right breast cancer no evidence of recurrence bilateral mammogram 10-10-22 BIRAD [address] scan pulmonary nodules which were questionable to be repeated as per medical oncology Plan: Continue anastrozole, follow up with DR. Corine Hernandez which would warrant interventional biopsy at this time Follow-up here in 6 months Repeat bilateral mammogram in 1 year Patient recommended to stop chewing tobacco, stop smoking, and stop vaping CC: Chrystal Edwards; Dr. Cox Additional CC's: Chrystal Edwards
== END ==
LOC: WWCWWP 13:12
PROVIDERS: ATTEND Surgery
DX: Z85.3 Personal history of malignant neoplasm of breast (principal); D72.829 Elevated white blood cell count, unspecified; F17.210 Nicotine dependence, cigarettes, uncomplicated; J45.909 Unspecified asthma, uncomplicated; N64.89 Other specified disorders of breast; Z79.811 Long term (current) use of aromatase inhibitors; Z80.3 Family history of malignant neoplasm of breast; Z92.3 Personal history of irradiation; M54.9 Dorsalgia, unspecified; F31.9 Bipolar disorder, unspecified; R45.851 Suicidal ideations; Z91.030 Bee allergy status; Z91.018 Allergy to other foods; Z88.0 Allergy status to penicillin; Z88.5 Allergy status to narcotic agent; Z91.040 Latex allergy status; Z88.8 Allergy status to other drugs, medicaments and biological substances

== ENCOUNTER → 2022-10-10 | Outpatient (CLI) | payer MEDICARE, OTHER ==
--- NOTE | 2022-10-10 13:54 | MM ---
Reason for Exam: Hx of breast cancer, conservation therapy. Last screening mammogram was performed 6 month(s) ago. Patient History: Menarche at age 12. First Full-Term at age 21. Hysterectomy at age 37. Breast cancer, right, age 54. Estrogen, starting at age 37 for 3 years. 08/08/2020, Lumpectomy on the Right side. 08/08/2020, Malignant Core Biopsy on the right side. 07/14/2020, Malignant Core Biopsy on the right side. Sister had breast cancer at or over age 50. Tissue Density: The breast tissue is heterogeneously dense. This may lower the sensitivity of mammography. Findings: Analyzed By CAD. Post treatment changes of the right breast. Benign round calcifications within both breasts. No new suspicious mass or group of calcifications within either breast. Overall Assessment: Benign, BI-RAD 2 Management: Diagnostic Mammogram of both breasts in 1 year. A clinical breast exam by your physician is recommended on an annual basis and results should be correlated with mammographic findings. This exam should not preclude additional follow-up of suspicious palpable abnormalities. Results were given to the patient verbally at the time of exam. Electronically signed and approved by: Marcos Benavidez D.O.
== END | disposition home or self-care (01) ==
LOC: RADMAMWWP 13:08
PROVIDERS: ATTEND Surgery
DX: R92.2 Inconclusive mammogram (principal); Z85.3 Personal history of malignant neoplasm of breast; Z80.3 Family history of malignant neoplasm of breast
CPT/HCPCS: 77066; G0279; 77062

== ENCOUNTER 2022-11-28 01:26 | Observation (INO) | payer MEDICARE, OTHER ==
[2022-11-28] MEDS ORDERED: SODIUM CHLORIDE 0.9% 1,000 ML IV STA (01:37)
[2022-11-28] MEDS ORDERED: SODIUM CHLORIDE 0.9% 500 ML 500 ML IV STA (02:01)
[2022-11-28] MEDS ORDERED: ACETAMINOPHEN TAB 325 MG TAB PO PRN (02:03)
[2022-11-28] MEDS ORDERED: NALOXONE 0.4 MG/ML 1 ML VIAL IV PRN (02:03)
[2022-11-28] MEDS: metroNIDAZOLE-NS PMX 500 MG in SALINE 1 100ML.BAG IVPB SCH ×3 (02:11→20:30)
[2022-11-28 02:29] LABS: Basophils # (A) 0.1 k/uL (0-0.2); Basophils % (A) 0 %; Eosinophils # (A) 0.1 k/uL (0-0.7); Eosinophils % (A) 1 %; HCT 36.8 % (34.0-46.0); HGB 12.1 gm/dL (11.4-16.0); Lymphocytes # (A) 3.2 k/uL (1.0-4.8); Lymphocytes % (A) 25 %; MCH 30.5 pg (25.0-35.0); MCHC 32.9 g/dL (31.0-37.0); MCV 92.8 fL (80.0-100.0); Mean Platelet Volume 7.3; Monocytes # (A) 0.9 k/uL (0-1.0); Monocytes % (A) 7 %; Neutrophils # (A) 8.4 k/uL (1.3-7.7); Neutrophils % (A) 64 %; Platelet Count 362 k/uL (150-450); RBC 3.96 m/uL (3.80-5.40); RDW 13.9 % (11.5-15.5)
[2022-11-28 02:56] LABS: INR 0.9 (<1.2); Partial Thromboplastin Time 23.8 sec (22.0-30.0); Prothrombin Time 9.6 sec (9.0-12.0)
[2022-11-28] MEDS: LEVOFLOXACIN 750MG-D5W PMX 750 MG in DEXTROSE/WATER 1 150ML.BAG IVPB SCH (03:06)
[2022-11-28 03:07] LABS: African American GFR (CKD) >90 (>60 ml/min/1.73 sqM); Anion Gap 10 mmol/L; Blood Urea Nitrogen 8 mg/dL (7-17); Calcium 8.9 mg/dL (8.4-10.2); Carbon Dioxide 28 mmol/L (22-30); Chloride 98 mmol/L (98-107); Glucose 106 mg/dL (74-99); Non-African American GFR(CKD) >90 (>60 ml/min/1.73 sqM); Potassium 4.2 mmol/L (3.5-5.1); Sodium 136 mmol/L (137-145)
--- NOTE | 2022-11-28 03:12 | ED ---
General Adult HPI - General Chief complaint: Abdominal Pain Stated complaint: Appendicitis Time Seen by Provider: 11/28/22 01:27 Source: patient, EMS, RN notes reviewed, old records reviewed Mode of arrival: EMS Limitations: no limitations - History of Present Illness Initial comments: Patient is a 57-year-old female who presents emergency Department as a transfer from [facility] for acute appendicitis. Patient is a history of diabetes, developmental delay, bipolar, asthma, hypertension. Had been having right lower quadrant abdominal pain for a few days. Mild nausea with it as well. Presented and they discovered acute appendicitis on workup. Had a white count of 14. Remainder of the labs within acceptable limits. CT imaging showed the appendicitis. Transferred her here for further evaluation and surgery as they do not have a surgeon on-call. They started the patient on levofloxacin as well as Flagyl due to amoxicillin ALLERGY. Patient states that her pain is improved. However still complaining of some pain at this time. She understands why she is here. His no other acute complaints at this time. - Related Data Home Medications Medication Instructions Recorded Confirmed ALPRAZolam [Xanax] 0.5 mg PO DAILY PRN 07/03/20 05/03/22 Albuterol Sulfate [Proair 1 puff INHALATION Q6H PRN 07/03/20 05/03/22 Digihaler] DULoxetine HCL [Cymbalta] 60 mg PO BID 07/03/20 05/03/22 Divalproex [Depakote] 1,500 mg PO 2000 07/03/20 05/03/22 Ezetimibe [Zetia] 10 mg PO 0700 07/03/20 05/03/22 Montelukast [Singulair] 10 mg PO HS 07/03/20 05/03/22 Pravastatin Sodium [Pravachol] 20 mg PO DAILY 07/03/20 05/03/22 polyethylene glycoL 3350 [Miralax] 17 gm PO DAILY PRN 07/03/20 05/03/22 EPINEPHrine (Auto Inject) [Epipen] 0.3 mg IM ONCE PRN 08/04/20 05/03/22 Bumetanide [BUMEX] 0.5 mg PO DAILY 04/12/21 05/03/22 cloZAPine [Clozaril] 100 mg PO HS 04/12/21 05/03/22 Anastrozole [Arimidex] 1 mg PO DAILY 07/18/21 05/03/22 Ascorbic Acid [Vitamin C] 500 mg PO DAILY 07/18/21 05/03/22 Ibuprofen [Motrin] 800 mg PO BID PRN 07/18/21 05/03/22 Omeprazole 20 mg PO DAILY 07/18/21 05/03/22 Potassium Chloride [Klor-Con 10 ER] 10 meq PO DAILY 07/18/21 05/03/22 lisinopriL [Zestril] 5 mg PO DAILY 07/18/21 05/03/22 Previous Rx's Medication Instructions Recorded HYDROcodone/APAP 5-325MG [[place] 1 tab PO Q4HR PRN #10 tab 09/07/21 5-325] Allergies Allergy/AdvReac Type Severity Reaction Status Date / Time bee venom protein (honey bee) Allergy Severe Anaphylaxis Verified 05/03/22 10:06 lemon Allergy Severe Anaphylaxis Verified 05/03/22 10:06 Penicillins Allergy Severe Anaphylaxis Verified 05/03/22 10:06 tramadol [From Ultra] Allergy Severe Anaphylaxis Verified 05/03/22 10:06 latex Allergy Mild Rash/Hives Verified 05/03/22 10:06 tablet vitamins Allergy Severe Anaphylaxis Uncoded 05/03/22 10:06 rootbeer pop Allergy Intermediate Rash/Hives Uncoded 05/03/22 10:06 Review of Systems ROS Statement: Those systems with pertinent positive or pertinent negative responses have been documented in the HPI. Review of Systems: CONST: Denies fever EYES: Denies blurry vision ENT: Denies nasal congestion C/V: Denies Chest pain RESP: Denies shortness of breath GI: Endorses abdominal pain : Denies dysuria SKIN: Denies rash. MSK: Denies joint pain. NEURO: Denies headache ROS Other: All systems not noted in ROS Statement are negative. Past Medical History Past Medical History: Asthma, Diabetes Mellitus, Hyperlipidemia, Hypertension, Osteoarthritis (OA) Additional Past Medical History / Comment(s): ?MOUTH CANCER per patient. was previously borderline diabetic, not on any medications currently History of Any Multi-Drug Resistant Organisms: None Reported Past Surgical History: Cholecystectomy, Hysterectomy, Orthopedic Surgery Additional Past Surgical History / Comment(s): EYE SURGERY. sx to repair dog bite, rt shoulder sx Past Anesthesia/Blood Transfusion Reactions: No Reported Reaction Past Psychological History: Anxiety, Bipolar, Depression Smoking Status: Former smoker Past Alcohol Use History: None Reported Past Drug Use History: Marijuana, Opiates - Past Family History Sister(s) Family Medical History: Cancer Additional Family Medical History / Comment(s): breast General Exam - General Exam Comments Initial Comments: General: Appears in no acute distress. HEAD: Normal with no signs of head trauma. EYES: PERRLA, EOMI, conjunctiva normal, no discharge. ENT: Hearing grossly intact, normal oropharynx. RESPIRATORY: Clear breath sounds bilaterally. No wheezes, rales, or rhonchi. C/V: Regular rate and rhythm. S1 and S2 auscultated, peripheral pulses 2+ and intact throughout ABD: Abdomen soft, nondistended. Tender to palpation in the right lower quadrant. No guarding. No peritoneal signs. No rebound tenderness. EXT: Normal range of motion, no obvious deformity SKIN: No rashes or lesions observed on exposed skin. NEURO: Alert and oriented 4. Limitations: no limitations Course Vital Signs 11/28/22 11/28/22 11/28/22 01:31 02:00 02:59 Temperature 98.1 F Pulse Rate 78 71 77 Respiratory 16 16 16 Rate Blood Pressure 99/82 106/78 122/70 O2 Sat by Pulse 95 97 97 Oximetry Medical Decision Making - Medical Decision Making Was pt. sent in by a medical professional or institution (RADHA Rider, VETERANS REHABILITATION COUNSELOR, urgent care, hospital, or senior living...) When possible be specific @ -Sent from [facility] for acute appendicitis for surgery. Did you speak to anyone other than the patient for history (EMS, parent, family, police, friend...)? What history was obtained from this source @ -No Did you review nursing and triage notes (agree or disagree)? Why? @ -I reviewed and agree with nursing and triage notes Were old charts reviewed (outside hosp., previous admission, EMS record, old EKG, old radiological studies, urgent care reports/EKG's, senior living records)? Report findings @ -Charts reviewed from outside hospital. Differential Diagnosis (chest pain, altered mental status, abdominal pain women, abdominal pain men, vaginal bleeding, weakness, fever, dyspnea, syncope, headache, dizziness, GI bleed, back pain, seizure, CVA, palpatations, mental health, musculoskeletal)? @ -Differential Abdominal Pain Women: Appendicitis, Cholecystitis, diverticulosis, ischemic bowel, pancreatitis, hepatitis, UTI, gastroenteritis, AAA, incarcerated hernia, bowel obstruction, constipation, inflammatory bowel, hepatitis, peptic ulcer disease, splenic infarction, perforated viscus, vulvitis, ovarian torsion, PID, kidney stone, placenta abruption, this is not meant to be an all-inclusive list EKG interpreted by me (3pts min.). @ -As above X-rays interpreted by me (1pt min.). @ -None done CT interpreted by me (1pt min.). @ -None done U/S interpreted by me (1pt. min.). @ -None done What testing was considered but not performed or refused? (CT, X-rays, U/S, labs)? Why? @ -None What meds were considered but not given or refused? Why? @ -None Did you discuss the management of the patient with other professionals (professionals i.e. Dr., PA, VETERANS REHABILITATION COUNSELOR, lab, RT, psych nurse, social group worker, stock checker, teacher, energy control officer, case assistant)? Give summary @ -Discussed with transferring physician, Dr. Ochoa from [facility]. Also discussed with on-call surgeon Dr. Beltran who accepted the patient. Also discussed with medical consult Dr. Estrella who accepted the consult. Was smoking cessation discussed for >3mins.? @ -No Was critical care preformed (if so, how long)? @ -No Were there social determinants of health that impacted care today? How? (Homelessness, low income, unemployed, alcoholism, drug addiction, transportation, low edu. Level, literacy, decrease access to med. care, senior care, rehab)? @ -No Was there de-escalation of care discussed even if they declined (Discuss DNR or withdrawal of care, Hospice)? DNR status @ -No What co-morbidities impacted this encounter? (DM, HTN, Smoking, COPD, CAD, Cancer, CVA, ARF, Chemo, Hep., AIDS, mental health diagnosis, sleep apnea, mor bid obesity)? @ -None Was patient admitted / discharged? Hospital course, mention meds given and route, prescriptions, significant lab abnormalities, going to OR and other pertinent info. @ -On the patient's presentation and physical exam, presents complaining of abdominal pain. Found to have appendicitis at outside hospital. Transferred here for surgical evaluation. We will repeat blood work. Patient will be continued on IV fluids, as well as IV Flagyl and Levaquin. Patient is made nothing by mouth. Analgesic medications ordered for the patient. She was in agreement with this plan. Vital signs within acceptable limits. Patient's labs are marked normal for a leukocytosis of 13. Remainder labs are within acceptable limits. I spoke with the admitting surgeon, Dr. Beltran who was in agreement with the plan for antibiotics, and patient will be made nothing by mouth. I [place] [facility]. Estrella for medical management for the patient. Patient was admitted in stable condition. Patient is nothing by mouth. Undiagnosed new problem with uncertain prognosis? @ -No Drug Therapy requiring intensive monitoring for toxicity (Heparin, Nitro, Insulin, Cardizem)? @ -No Were any procedures done? @ -No Diagnosis/symptom? @ -Appendicitis Acute, or Chronic, or Acute on Chronic? @ -Acute Uncomplicated (without systemic symptoms) or Complicated (systemic symptoms)? @ -Complicated Side effects of treatment? @ -No Exacerbation, Progression, or Severe Exacerbation? @ -No Poses a threat to life or bodily function? How? (Chest pain, [place], [place], pneumonia, PE, COPD, DKA, ARF, appy, cholecystitis, CVA, Diverticulitis, Homicidal, Suicidal, threat to staff... and all critical care pts) @ -yes - Lab Data Result diagrams: 11/28/22 02:09 11/28/22 02:09 Lab Results 11/28/22 Range/Units 02:00 Blood Type A Positive Blood Type Recheck A Pos Bld Type Recheck Status No Antibody Screen NEGATIVE Spec Expiration Date 12/01/20222299 - EKG Data -: EKG Interpreted by Me EKG Comments: 12-lead Electrocardiogram Interpretation Note EKG was reviewed and interpreted by myself. 12-lead ECG performed at 0221 is interpreted by me as revealing normal sinus rhythm at a rate of 76 beats per minute. [place] is normal. CT interval is 156 ms, QRS duration is 98 ms, QTc is 435 ms.. There were no ST or T wave abnormalities to suggest myocardial ischemia or injury. R wave progression across the precordium was satisfactory. By my interpretation this EKG is non-diagnostic for acute ischemia. Disposition Clinical Impression: Appendicitis Disposition: ADMITTED IP TO THIS HOSP Condition: Stable Time of Disposition: :00
--- NOTE | 2022-11-28 05:20 | P.CONS ---
History of Present Illness - Reason for Consult Consult date: 11/28/22 - History of Present Illness The patient is a 57-year-old female resident of an [facility] with a PMH of developmental delay, type II DM, hypertension, hyperlipidemia, and asthma who was sent in as a transfer from [facility], [place] where the patient had presented with right lower quadrant abdominal pain. 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 Patient states that she had been experiencing right lower quadrant abdominal discomfort over the past 5-6 days duration gradually worsened. She states that she did not wish to worry anyone and thereby did not announce the pain to the staff. She reports that the pain was improved with Dilaudid at [facility] [place] emergency room. At time of interview, reported 10 out of 10 right lower quadrant abdominal pain. She denied any additional complaints. She denied experiencing nausea, vomiting, diarrhea. Also denied fever, chills, chest pain or shortness of breath. She underwent an extensive evaluation at [facility], [place] which is all reviewed. CT abdomen and pelvis with and without contrast revealed appendicitis reactive small bowel ileus. Laboratory evaluation did reveal WBC count 14.5, hemoglobin of 12.1, platelets 353, sodium 138, potassium 3.9, chloride 96, CO2 37, glucose 100, BUN 9, creatinine 0.7, AST 20, ALT 20, alk phos 87, total bilirubin 0.3, albumin 4.1, ED documentation reviewed and case discussed with ED provider. Review of systems: Pertinent positives and negatives as discussed in HPI, a complete review of systems was performed and all other systems are negative. Physical examination: Vital signs reviewed General: non toxic, no distress, appears at stated age, obese Derm: no unusual rashes/lesions, warm Head: atraumatic, normocephalic, symmetric Eyes: EOMI, no lid lag, anicteric sclera, pupils equal round reactive to light ENT: Nose and ears atraumatic Neck: No cervical lymphadenopathy, trachea midline, supple Mouth: no lip lesion, mucus membranes moist Cardiovascular: S1S2 reg, no murmur, positive dorsalis pedis pulse bilateral, no edema Lungs: CTA bilateral, no rhonchi, no rales, no accessory muscle use Abdominal: soft, right lower quadrant tenderness to palpation, no guarding Ext: muscle strength 5 out of 5 in all 4 extremities grossly, no gross muscle atrophy, no contractures, Neuro: CN II-XI grossly intact, no gross focal neuro deficits Psych: Alert, oriented, appropriate affect Assessment: Acute appendicitis Chronic conditions: Type II DM, hypertension, hyperlipidemia, asthma, developmental delay Imaging: She underwent an extensive evaluation at [facility], [place] which is all reviewed. CT abdomen and pelvis with and without contrast revealed appendicitis reactive small bowel ileus. Data Review: Laboratory evaluation did reveal WBC count 14.5, hemoglobin of 12.1, platelets 353, sodium 138, potassium 3.9, chloride 96, CO2 37, glucose 100, BUN 9, creatinine 0.7, AST 20, ALT 20, alk phos 87, total bilirubin 0.3, albumin 4.1, Plan: Defer management of appendicitis to primary surgery service Continue with home medications once reconciled Patient currently nothing by mouth C/w IVFs NS 130 mL/hr Pain control Past Medical History Past Medical History: Asthma, Diabetes Mellitus, Hyperlipidemia, Hypertension, Osteoarthritis (OA) Additional Past Medical History / Comment(s): ?MOUTH CANCER per patient. was previously borderline diabetic, not on any medications currently History of Any Multi-Drug Resistant Organisms: None Reported Past Surgical History: Cholecystectomy, Hysterectomy, Orthopedic Surgery Additional Past Surgical History / Comment(s): EYE SURGERY. sx to repair dog bite, rt shoulder sx Past Anesthesia/Blood Transfusion Reactions: No Reported Reaction Past Psychological History: Anxiety, Bipolar, Depression Smoking Status: Former smoker Past Alcohol Use History: None Reported Past Drug Use History: Marijuana, Opiates - Past Family History Sister(s) Family Medical History: Cancer Additional Family Medical History / Comment(s): breast Medications and Allergies Home Medications Medication Instructions Recorded Confirmed Type ALPRAZolam [Xanax] 0.5 mg PO DAILY PRN 07/03/20 05/03/22 History Albuterol Sulfate [Proair 1 puff INHALATION Q6H PRN 07/03/20 05/03/22 History Digihaler] DULoxetine HCL [Cymbalta] 60 mg PO BID 07/03/20 05/03/22 History Divalproex [Depakote] 1,500 mg PO 199907/03/20 05/03/22 History Ezetimibe [Zetia] 10 mg PO 0700 07/03/20 05/03/22 History Montelukast [Singulair] 10 mg PO HS 07/03/20 05/03/22 History Pravastatin Sodium [Pravachol] 20 mg PO DAILY 07/03/20 05/03/22 History polyethylene glycoL 3350 [Miralax] 17 gm PO DAILY PRN 07/03/20 05/03/22 History EPINEPHrine (Auto Inject) [Epipen] 0.3 mg IM ONCE PRN 08/04/20 05/03/22 History Bumetanide [BUMEX] 0.5 mg PO DAILY 04/12/21 05/03/22 History cloZAPine [Clozaril] 100 mg PO HS 04/12/21 05/03/22 History Anastrozole [Arimidex] 1 mg PO DAILY 07/18/21 05/03/22 History Ascorbic Acid [Vitamin C] 500 mg PO DAILY 07/18/21 05/03/22 History Ibuprofen [Motrin] 800 mg PO BID PRN 07/18/21 05/03/22 History Omeprazole 20 mg PO DAILY 07/18/21 05/03/22 History Potassium Chloride [Klor-Con 10 ER] 10 meq PO DAILY 07/18/21 05/03/22 History lisinopriL [Zestril] 5 mg PO DAILY 07/18/21 05/03/22 History HYDROcodone/APAP 5-325MG [Trinchera 1 tab PO Q4HR PRN #10 tab 09/07/21 05/03/22 Rx 5-325] Allergies Allergy/AdvReac Type Severity Reaction Status Date / Time bee venom protein (honey bee) Allergy Severe Anaphylaxis Verified 05/03/22 10:06 lemon Allergy Severe Anaphylaxis Verified 05/03/22 10:06 Penicillins Allergy Severe Anaphylaxis Verified 05/03/22 10:06 tramadol [From Ultram] Allergy Severe Anaphylaxis Verified 05/03/22 10:06 latex Allergy Mild Rash/Hives Verified 05/03/22 10:06 tablet vitamins Allergy Severe Anaphylaxis Uncoded 05/03/22 10:06 rootbeer pop Allergy Intermediate Rash/Hives Uncoded 05/03/22 10:06 Physical Exam Vitals: Vital Signs Temp Pulse Resp BP Pulse Ox 11/28/22 02:59 77 16 122/70 97 11/28/22 02:00 71 16 106/78 97 11/28/22 01:31 98.1 F 78 16 99/82 95 Intake and Output 11/27/22 11/27/2211/28/23 14:59 22:59 06:59 Other: Weight 116.12 kg Results CBC & Chem 7: 11/28/22 02:09 11/28/22 02:09 Labs: Abnormal Lab Results - Last 24 Hours (Table) 11/28/22 11/28/22 Range/Units 02:09 02:09 WBC 13.0 H (3.8-10.6) k/uL Neutrophils # 8.4 H (1.3-7.7) k/uL Sodium 136 L (137-145) mmol/L Glucose 106 H (74-99) mg/dL
[2022-11-28] MEDS: MORPHINE SULFATE 4 MG/ML SYRINGE IVP PRN ×4 (05:33→20:54)
[2022-11-28] MEDS ORDERED: DEXTROSE 50% SYRINGE 50 ML IVP PRN ×2 (08:09)
[2022-11-28] MEDS ORDERED: NICOTINE GUM (POLACRILEX) 2 MG GUM BUCCAL PRN (09:34)
--- NOTE | 2022-11-28 10:18 | P.PN ---
Progress Note - Text Progress Note Date: 11/28/22 Hospitalist Interval Note Patient seen and examined at bedside. She is feeling okay. No nuasea, report right lower quadrant pain. Vital signs reviewed General: non toxic, no distress, appears at stated age Derm: warm, dry Mouth: no lip lesion, mucus membranes dry Cardiovascular: S1S2 reg, no murmur, positive posterior tibial pulse bilateral, Lungs: CTA bilateral, no rhonchi, no rales , no accessory muscle use Abdominal: soft, +tender to palpation RLQ, no guarding Ext: no gross muscle atrophy, no edema, no contractures Psych: Alert, oriented, appropriate affect Assessment/Plan: Acute appendicitis, await surgery today DM 2 HTN HLD Asthma without exacerbation - d/w nursing will have pharmacy operations specialist verify meds and I will reorder - SSI, follow BS This is an update note for patient , for full note on 11/28/22 see Norman Stern. There is no charge associated with this note.
[2022-11-28] MEDS: NICOTINE 21MG/24HR PATCH TRANSDERM SCH (10:23)
[2022-11-28 12:27] LABS: Glucose,Whole Blood 93 mg/dL (70-110)
[2022-11-28] MEDS: INSULIN ASPART (NovoLOG) 100 UNIT/ML VIAL SQ SCH ×2 (12:40→18:58)
[2022-11-28] MEDS ORDERED: HEPARIN SODIUM,PORCINE/PF 5,000 UNIT/0.5 ML SYRINGE SQ PRN (14:17)
--- NOTE | 2022-11-28 14:17 | P.GSHP ---
History of Present Illness H&P Date: 11/28/22 CHIEF COMPLAINT: Right lower quadrant abdominal pain with appendicitis for over 3 days. HISTORY OF PRESENT ILLNESS: The patient is a 57-year-old female who presents with over 1 week history of periumbilical with right lower quadrant abdominal pain that is crampy dull ache in nature. No reports of prior abdominal pain. She states the intensity of the pain is severe. Her presented with CT abdomen and pelvis consistent with dilated appendix suspicious for appendicitis hence general surgery admission. PAST MEDICAL HISTORY: See list and reviewed PAST SURGICAL HISTORY: See list and reviewed CURRENT MEDICATIONS: See list and reviewed ALLERGIES: See list and reviewed SOCIAL HISTORY: See list and reviewed FAMILY HISTORY: See list and reviewed REVIEW OF ORGAN SYSTEMS: CONSTITUTIONAL: Present fever, no chills. Denies recent weight loss. HEENT: Denies any trouble with vision, hearing or nosebleeds. No difficulty swallowing. LYMPHATIC: The patient denies any lumps and bumps around the neck. ENDOCRINE: Denies any thyroid disorders. Denies any blood sugar glucose in tolerance. RESPIRATORY: Denies shortness of breath including chronic cough. CARDIOVASCULAR: Denies history of chest pain with exertion. GASTROINTESTINAL: Denies regurgitation of bile at night as well as intermittent nausea. No blood in stools. GENITOURINARY: Denies any blood in urine or increased urinary frequency. MUSCULOSKELETAL: Denies current joint arthritis. NEUROLOGIC: Denies any numbness or tingling along the distal extremities. No seizure disorders or headaches. PSYCHIATRIC: Denies any depression or suicidal ideation. HEMATOLOGIC: Denies any abnormal bleeding or bruising. PHYSICAL EXAMINATION: VITALS: Reviewed. GENERAL: Well-developed and in no acute distress. Pleasant. HEENT: No sclera icterus. Extraocular movements grossly intact. Moist buccal mucosa. Head is atraumatic, normocephalic. Hears conversational speech. No nasal drainage. NECK: Supple without lymphadenopathy. No JV distention. CHEST: Non-labored respirations and equal bilateral excursions. CARDIOVASCULAR: Regular rate and rhythm. Palpable 2+ radial pulses. ABDOMEN: Soft, tender at the right lower quadrant without guarding. MUSCULOSKELETAL: No clubbing, cyanosis or edema. NEUROLOGIC: No focal or lateralizing signs. PSYCH: Appropriate affect. Alert and oriented to person, place and time. SKIN: Well perfused. Good skin turgor. LABS: Reviewed. White blood cell count elevated over 13,000. STUDIES: CT of the abdomen and pelvis report reviewed with findings consistent with appendicitis. ASSESSMENT: 1. Right lower quadrant pain. 2. Appendicitis with sepsis 3. Leukocytosis. PLAN: 1. I have discussed benefits and risks of robotic appendectomy. 2. Bilateral SCDs. 3. Antibiotics intravenous to address moderate leukocytosis with underlying sepsis Past Medical History Past Medical History: Asthma, Diabetes Mellitus, Hyperlipidemia, Hypertension, Osteoarthritis (OA) Additional Past Medical History / Comment(s): ?MOUTH CANCER per patient. was previously borderline diabetic, not on any medications currently History of Any Multi-Drug Resistant Organisms: None Reported Past Surgical History: Cholecystectomy, Hysterectomy, Orthopedic Surgery Additional Past Surgical History / Comment(s): EYE SURGERY. sx to repair dog bite, rt shoulder sx Past Anesthesia/Blood Transfusion Reactions: No Reported Reaction Past Psychological History: Anxiety, Bipolar, Depression Smoking Status: Former smoker Past Alcohol Use History: None Reported Past Drug Use History: Marijuana, Opiates - Past Family History Sister(s) Family Medical History: Cancer Additional Family Medical History / Comment(s): breast Medications and Allergies Home Medications Medication Instructions Recorded Confirmed Type DULoxetine HCL [Cymbalta] 120 mg PO DAILY@59907/03/20 11/28/22 History Ezetimibe [Zetia] 10 mg PO DAILY@59907/03/20 11/28/22 History Montelukast [Singulair] 10 mg PO HS 07/03/20 11/28/22 History polyethylene glycoL 3350 [Miralax] 17 gm PO HS 07/03/20 11/28/22 History Bumetanide [BUMEX] 0.5 mg PO HS 04/12/21 11/28/22 History cloZAPine [Clozaril] 200 mg PO HS 04/12/21 11/28/22 History Anastrozole [Arimidex] 1 mg PO DAILY@59907/18/21 11/28/22 History Ascorbic Acid [Vitamin C] 1,000 mg PO DAILY@59907/18/21 11/28/22 History Ibuprofen [Motrin] 800 mg PO Q8H PRN 07/18/21 11/28/22 History Omeprazole 20 mg PO DAILY@59907/18/21 11/28/22 History Potassium Chloride [Klor-Con 10 ER] 10 meq PO DAILY@1800 01/26/22 06/08/23 History lisinopriL [Zestril] 5 mg PO DAILY@0600 07/18/21 11/28/22 History ALPRAZolam [Xanax] 1 mg PO BID PRN 11/28/22 11/28/22 History Acetaminophen Tab [Tylenol Tab] 1,000 mg PO Q6H PRN 11/28/22 11/28/22 History Albuterol Inhaler [Ventolin Hfa 1 puff INHALATION RT-Q4H PRN 11/28/22 11/28/22 History Inhaler] Aloe Vera 1 applic TOPICAL QID PRN 11/28/22 11/28/22 History Divalproex ER [Depakote ER] 1,000 mg PO HS 11/28/22 11/28/22 History EPINEPHrine (Auto Inject) [Epipen] 0.3 mg IM ONCE PRN 11/28/22 11/28/22 History Mirabegron [Myrbetriq] 50 mg PO DAILY 11/28/22 11/28/22 History Pravastatin Sodium [Pravachol] 40 mg PO DAILY@0611/28/22 11/28/22 History polyethylene glycoL 3350 [Miralax] 17 gm PO DAILY PRN 11/28/22 11/28/22 History Allergies Allergy/AdvReac Type Severity Reaction Status Date / Time bee venom protein (honey bee) Allergy Severe Anaphylaxis Verified 11/28/22 12:32 lemon Allergy Severe Anaphylaxis Verified 11/28/22 12:32 Penicillins Allergy Severe Anaphylaxis Verified 11/28/22 12:32 tramadol [From Ultram] Allergy Severe Anaphylaxis Verified 11/28/22 12:32 latex Allergy Mild Rash/Hives Verified 11/28/22 12:32 tablet vitamins Allergy Severe Anaphylaxis Uncoded 11/28/22 12:32 rootbeer pop Allergy Intermediate Rash/Hives Uncoded 11/28/22 12:32 Surgical - Exam Vital Signs Temp Pulse Resp BP Pulse Ox 98.1 F 78 16 99/82 95 11/28/22 01:31 11/28/22 01:31 11/28/22 01:31 11/28/22 01:31 11/28/22 01:31 Results - Labs 11/28/22 02:09 11/28/22 02:09 Abnormal Lab Results - Last 24 Hours (Table) 11/28/22 11/28/22 Range/Units 02:09 02:09 WBC 13.0 H (3.8-10.6) k/uL Neutrophils # 8.4 H (1.3-7.7) k/uL Sodium 136 L (137-145) mmol/L Glucose 106 H (74-99) mg/dL Diabetes panel 11/28/22 Range/Units 02:09 Sodium 136 L (137-145) mmol/L Potassium 4.2 (3.5-5.1) mmol/L Chloride 98 (98-107) mmol/L Carbon Dioxide 28 (22-30) mmol/L BUN 8 (7-17) mg/dL Creatinine 0.57 (0.52-1.04) mg/dL Glucose 106 H (74-99) mg/dL Calcium 8.9 (8.4-10.2) mg/dL Calcium panel 11/28/22 Range/Units 02:09 Calcium 8.9 (8.4-10.2) mg/dL Pituitary panel 11/28/22 Range/Units 02:09 Sodium 136 L (137-145) mmol/L Potassium 4.2 (3.5-5.1) mmol/L Chloride 98 (98-107) mmol/L Carbon Dioxide 28 (22-30) mmol/L BUN 8 (7-17) mg/dL Creatinine 0.57 (0.52-1.04) mg/dL Glucose 106 H (74-99) mg/dL Calcium 8.9 (8.4-10.2) mg/dL Adrenal panel 11/28/22 Range/Units 02:09 Sodium 136 L (137-145) mmol/L Potassium 4.2 (3.5-5.1) mmol/L Chloride 98 (98-107) mmol/L Carbon Dioxide 28 (22-30) mmol/L BUN 8 (7-17) mg/dL Creatinine 0.57 (0.52-1.04) mg/dL Glucose 106 H (74-99) mg/dL Calcium 8.9 (8.4-10.2) mg/dL
[2022-11-28 14:48] LABS: Glucose,Whole Blood 97 mg/dL (70-110)
[2022-11-28] MEDS ORDERED: LACTATED RINGERS 1,000 ML IV ONE (14:51)
[2022-11-28] MEDS ORDERED: DEXAMETHASONE SOD PHOSPHATE 4 MG/ML 1 ML VIAL IVP ONE (14:52)
[2022-11-28] MEDS ORDERED: ONDANSETRON 4 MG/2 ML VIAL IVP ONE (14:52)
[2022-11-28] MEDS ORDERED: ONDANSETRON 4 MG/2 ML VIAL ONE (14:54)
[2022-11-28] MEDS ORDERED: fentaNYL (PF) 50 MCG/1 ML VIAL IVP ONE (15:34)
[2022-11-28] MEDS ORDERED: diphenhydrAMINE 50 MG/ML 1 ML VIAL ONE (15:54)
[2022-11-28] MEDS ORDERED: diphenhydrAMINE 50 MG/ML 1 ML VIAL IVP ONE (15:57)
[2022-11-28] MEDS ORDERED: fentaNYL (PF) 50 MCG/ML 2 ML AMP ONE (16:38)
[2022-11-28] MEDS ORDERED: PROPOFOL 10 MG/ML 20 ML VIAL IV ONE (16:38)
[2022-11-28] MEDS ORDERED: SUGAMMADEX SODIUM 200 MG/2 ML SDV IV ONE (16:38)
[2022-11-28] MEDS ORDERED: MIDAZOLAM 2 MG/2 ML VIAL ONE (16:38)
[2022-11-28] MEDS ORDERED: KETOROLAC 30 MG/ML 1 ML VIAL ONE (16:38)
[2022-11-28] MEDS ORDERED: SUCCINYLCHOLINE CHLORIDE 200 MG/10 ML VIAL IV ONE (16:38)
[2022-11-28] MEDS ORDERED: LIDOCAINE 2% INJ 20 MG/ML (2 ML VIAL) ONE (16:38)
[2022-11-28] MEDS ORDERED: ROCURONIUM 10 MG/ML (5 ML VIAL) IV ONE (16:38)
[2022-11-28] MEDS ORDERED: LIDOCAINE 2%-EPI 1:100,000 20 ML VIAL SQ ONE (17:10)
[2022-11-28] MEDS ORDERED: SODIUM CHLORIDE 0.9% 100 ML with metroNIDAZOLE-NS PMX 500 MG IV ONE ×2 (17:23)
[2022-11-28] MEDS ORDERED: ALBUTEROL NEBULIZED 2.5 MG/3 ML INHALATION ONE (18:00)
[2022-11-28] MEDS ORDERED: ONDANSETRON 4 MG/2 ML VIAL IVP PRN (18:06)
[2022-11-28] MEDS ORDERED: ACETAMINOPHEN TAB 500 MG TAB PO PRN (18:08)
[2022-11-28] MEDS ORDERED: ALPRAZolam 1 MG TAB PO PRN (18:08)
[2022-11-28] MEDS ORDERED: ALBUTEROL NEBULIZED 2.5 MG/3 ML INHALATION PRN (18:08)
--- NOTE | 2022-11-28 18:12 | P.OP ---
Date of Procedure: 11/28/22 Description of Procedure: SURGEON: NEREYDA HAHN MD Preoperative Diagnosis: 1. Acute appendicitis Postoperative Diagnosis: 1. Acute appendicitis with periappendicitis Procedure(s) Performed: 1. Robotic-assisted daVinci Xi laparoscopic appendectomy Anesthesia: GETA, local Estimated Blood Loss (ml): 5 Pathology: other (appendix) Condition: stable Disposition: floor Operative Findings: 1. Acute appendicitis without rupture with periappendicitis 2. Terminal ileum unremarkable 3. Cecum unremarkable 4. Pelvic adhesions due to prior hysterectomy 5. Redundant sigmoid colon with adhesions to appendix INDICATIONS: The patient is a 57-year-old female who presents with acute appendicitis. Benefits and risks, including infection, open surgery, and bleeding for additional surgery was discussed at length. Informed consent was obtained. All questions of the patient and family were answered. DESCRIPTION: The patient was transferred to the operating room and placed in supine position. The patient had previously voided. The abdomen was then prepped and draped in standard sterile fashion as Ioban was placed along the abdomen to minimize any contamination of skin floor. After a timeout protocol was performed, attention was then brought to the left upper quadrant whereby a 0 degree 5 mm laparoscopic trocar entry was performed. The abdominal cavity was entered and insufflated to 12 mmHg pressure, which was tolerated well. Diagnostic laparoscopy demonstrated no injury to bowel, viscera or mesentery. Next a robotic 8-mm trocar was placed along the left lower quadrant, 10-cm lateral to the midline. A 12 mm port was placed along the left upper quadrant and another 8-mm port left lateral abdominal wall. Ports were placed 8 cm apart from each other including 15-20 cm away from the target anatomy of the right pelvis. The patient was then placed in Trendelenburg position, at least 14 down and right side up at least 7. The robotic da Bridger XI system was primed and docked from the left side of the patient. Using atraumatic graspers and vessel sealer, the robotic system was docked and primed as described. Instruments were interchanged by the technical support assistant including graspers, robotic stapler and vessel sealer. Next, attention was brought to identify the cecum. A systematic view within the abdominal cavity was started with the small bowel which was unremarkable. The base of the cecum was unremarkable. The appendix was adherent to the upper body of the sigmoid colon due to inflammation. The sigmoid colon was highly redundant. The appendix acquired additional dissection. The body of the appendix was moderately dilated with moderate periappendicitis. No perforation was identified. The appendix was dissected free from its surrounding tissues. Blue 45 mm robotic staple loads were fired along the base of the appendix. The staple line was hemostatic. Hemostasis was checked prior to undocking the robot. The robot was undocked. I re-scrubbed into the case. The specimen was removed from the abdominal cavity with an Endo Catch bag through the 12 mm trocar at the left upper quadrant. All instruments and pneumoperitoneum were evacuated from the abdominal cavity. Local anesthetic was infiltrated to all wounds for postop analgesia. All incisions were also cleansed with diluted hydrogen peroxide. The incisions were closed with 4-0 Monocryl. Exofin glue was applied to the rest of the skin incisions. The patient had tolerated the procedure well. The patient was extubated successfully. The patient was transferred to the postanesthesia care unit in stable condition.
[2022-11-28 18:18] LABS: Glucose,Whole Blood 157 mg/dL (70-110)
[2022-11-28] MEDS ORDERED: ACETAMINOPHEN IV (For NPO) 1,000 MG in EMPTY BAG 1 BAG IVPB ONE (18:30)
[2022-11-28] MEDS: KETOROLAC 15 MG/ML 1 ML VIAL IVP SCH (18:59)
[2022-11-28 20:33] LABS: Glucose,Whole Blood 175 mg/dL (70-110)
[2022-11-28] MEDS: HEPARIN SODIUM,PORCINE/PF 5,000 UNIT/0.5 ML SYRINGE SQ SCH (20:53)
[2022-11-28] MEDS ORDERED: DIVALPROEX ER 500 MG TAB.ER.24H PO SCH (21:00)
[2022-11-28] MEDS ORDERED: MONTELUKAST 10 MG TAB PO SCH (21:00)
[2022-11-28] MEDS ORDERED: BUMETANIDE 0.5 MG TABLET PO SCH (21:00)
[2022-11-28] MEDS ORDERED: polyethylene glycoL 3350 17 GM POWD.PACK PO SCH (21:00)
[2022-11-29] MEDS: KETOROLAC 15 MG/ML 1 ML VIAL IVP SCH ×3 (00:05→12:32)
[2022-11-29] MEDS: LEVOFLOXACIN 750MG-D5W PMX 750 MG in DEXTROSE/WATER 1 150ML.BAG IVPB SCH (01:21)
[2022-11-29] MEDS: MORPHINE SULFATE 4 MG/ML SYRINGE IVP PRN ×3 (02:56→14:15)
[2022-11-29] MEDS: metroNIDAZOLE-NS PMX 500 MG in SALINE 1 100ML.BAG IVPB SCH ×2 (04:00→08:08)
[2022-11-29] MEDS ORDERED: lisinopriL 5 MG TAB PO SCH (06:00)
[2022-11-29] MEDS ORDERED: EZETIMIBE 10 MG TAB PO SCH (06:00)
[2022-11-29] MEDS ORDERED: ANASTROZOLE 1 MG TAB PO SCH (06:00)
[2022-11-29] MEDS ORDERED: DULoxetine HCL 60 MG CAPSULE.DR PO SCH (06:00)
[2022-11-29 06:06] LABS: Glucose,Whole Blood 118 mg/dL (70-110)
[2022-11-29] MEDS: INSULIN ASPART (NovoLOG) 100 UNIT/ML VIAL SQ SCH ×2 (06:22→12:28)
[2022-11-29 07:51] LABS: Basophils % (A) 0 %; Eosinophils % (A) 0 %; HGB 12.2 gm/dL (11.4-16.0); Lymphocytes # (A) 1.9 k/uL (1.0-4.8); Lymphocytes % (A) 16 %; MCH 29.9 pg (25.0-35.0); MCHC 32.2 g/dL (31.0-37.0); MCV 92.8 fL (80.0-100.0); Mean Platelet Volume 8.3; Monocytes # (A) 0.7 k/uL (0-1.0); Monocytes % (A) 6 %; Neutrophils # (A) 9.1 k/uL (1.3-7.7); Neutrophils % (A) 76 %; Platelet Count 260 k/uL (150-450); RDW 13.9 % (11.5-15.5); WBC 11.9 k/uL (3.8-10.6)
[2022-11-29 07:57] LABS: African American GFR (CKD) >90 (>60 ml/min/1.73 sqM); Anion Gap 9 mmol/L; Blood Urea Nitrogen 12 mg/dL (7-17); Calcium 8.6 mg/dL (8.4-10.2); Carbon Dioxide 28 mmol/L (22-30); Chloride 98 mmol/L (98-107); Glucose 103 mg/dL (74-99); Non-African American GFR(CKD) >90 (>60 ml/min/1.73 sqM); Sodium 135 mmol/L (137-145)
[2022-11-29] MEDS: HEPARIN SODIUM,PORCINE/PF 5,000 UNIT/0.5 ML SYRINGE SQ SCH (08:04)
[2022-11-29 08:05] LABS: Potassium 5.1 mmol/L (3.5-5.1)
[2022-11-29] MEDS: NICOTINE 21MG/24HR PATCH TRANSDERM SCH (08:08)
[2022-11-29] MEDS ORDERED: PANTOPRAZOLE 40 MG/10 ML VIAL IV SCH (09:00)
[2022-11-29] MEDS ORDERED: NON FORMULARY DRUG (Mirabegron [Myrbetriq] 50 MG Tab.Er.24h) PO SCH (09:00)
--- NOTE | 2022-11-29 11:01 | P.PN ---
Subjective Progress Note Date: 11/29/22 Patient is c/o pain today in abd. Does appear more comfortable on exam than reported pain. Gen: awake, alert HEENT: normocephalic, atraumatic, good hearing acuity, moist mucous membranes Resp: good air exchange, breathing comfortably with no accessory muscle use CVS: good distal perfusion x 4, GI: soft, tenderness to palpation diffusely, ND : no SPT, no CVAT, plunkett catheter not present MSK: no pitting edema, no clubbing Neuro: non-focal, moving all extremities Psych: cooperative, euthymic mood Hospital course: The patient is a 57-year-old female resident of an [facility] with a PMH of developmental delay, type II DM, hypertension, hyperlipidemia, and asthma who was sent in as a transfer from [facility] where the patient had presented with right lower quadrant abdominal pain. She underwent an extensive evaluation at [facility] which is all reviewed. CT abdomen and pelvis with and without contrast revealed appendicitis reactive small bowel ileus. Laboratory evaluation did reveal WBC count 14.5, hemoglobin of 12.1, platelets 353, sodium 138, potassium 3.9, chloride 96, CO2 37, glucose 100, BUN 9, creatinine 0.7, AST 20, ALT 20, alk phos 87, total bilirubin 0.3, albumin 4.1. Patient underwent robotic-assisted appendectomy on 11/28 without complication. Assessment: Acute appendicitis Chronic conditions: Type II DM, hypertension, hyperlipidemia, asthma, developmental delay Plan: Patient is afebrile, 126/92, heart rate 77, 96% on room air CBC has mild leukocytosis to 11.9 Basic metabolic panel has mild hyponatremia to 135 Patient's clozapine was restarted Continue levofloxacin 750 mg daily Continue Flagyl 500 mg 3 times a day Discontinue bumex 0.5mg HS home medication - i see no indication for this medication, and the dosing schedule to be at bedtime is very unusual, discussed with pharmacy and they will look into this Patient is full code Patient is medically stable for discharge upon discretion of the surgery team Objective - Vital Signs Vital signs: Vital Signs Temp 97.8 F 11/29/22 07:10 Pulse 77 11/29/22 07:10 Resp 16 11/29/22 07:10 BP 126/92 11/29/22 07:10 Pulse Ox 96 11/29/22 07:10 FiO2 Intake & Output 11/28/22 11/29/22 11/29/22 18:59 06:59 18:59 Intake Total 550 Output Total 5 Balance 545 Weight 116.12 kg Intake: IV 550 Output: Estimated Blood Loss 5 Other: # Voids 3 - Labs CBC & Chem 7: 11/29/22 06:50 11/29/22 06:50 Labs: Abnormal Lab Results - Last 24 Hours (Table) 11/28/22 11/28/22 11/29/22 Range/Units 18:16 20:31 06:05 WBC (3.8-10.6) k/uL Neutrophils # (1.3-7.7) k/uL Sodium (137-145) mmol/L Glucose (74-99) mg/dL POC Glucose (mg/dL) 157 H 175 H 118 H (70-110) mg/dL 11/29/22 11/29/22 Range/Units 06:50 06:50 WBC 11.9 H (3.8-10.6) k/uL Neutrophils # 9.1 H (1.3-7.7) k/uL Sodium 135 L (137-145) mmol/L Glucose 103 H (74-99) mg/dL POC Glucose (mg/dL) (70-110) mg/dL
[2022-11-29 14:25] VITALS: BP 120/84; PULSE 79; RESP 17; TEMP 98
--- NOTE | 2022-11-29 15:49 | P.DS ---
Providers Date of admission: 11/28/22 02:06 Expected date of discharge: 11/29/22 Attending physician: Zabrina Beltran Consults: 11/28/22 02:03 Consult Physician Routine Consulting Provider: Vandana Estrella Consult Reason/Comments: medical management Do you want consulting provider notified?: Already Contacted Primary care physician: PERNELL Downs Hospital Course: DIAGNOSES: 1. Acute nonperforated appendicitis with periappendicitis 2. Morbid obesity due to excess calories, BMI 43.9 3. Cognitive delay 4. Diabetes type 2, [id number] 5. Diabetic nephropathy 6. Hypertensive heart disease with congestive heart failure 7. Hyperlipidemia 8. Generalized anxiety disorder 9. Bipolar disorder 10. Personal history of breast cancer CHIEF COMPLAINT: Acute appendicitis HISTORY OF PRESENT ILLNESS: The patient is a 57-year-old female transferred from [facility] for acute appendicitis. She underwent uncomplicated appendectomy. No fevers or chills. Patient tolerated diet. ROS: No reports of nausea and vomiting. No bowel movements. No fevers or chills. No new chest pain. No productive sputum PHYSICAL EXAM: VITAL SIGNS: Reviewed CONSTITUTIONAL: Well developed and in no acute distress. EYES: Conjuctivae without sclera icterus. Extraocular movements grossly intact. HEAD, EARS, NOSE, THROAT: Moist buccal mucosa. Head is atraumatic, normocephalic. Hears conversational speech. No nasal drainage. RESPIRATORY: Non-labored respirations and equal bilateral excursions. CARDIOVASCULAR: Palpable 2+ radial pulses. ABDOMEN: Mild ecchymosis/bruising along the abdomen to be expected. No infection. MUSCULOSKELETAL: No gross deformity of the lower extremities noted. No clubbing. No cyanosis. SKIN: Good skin turgor. Well perfused. NEUROLOGIC: Cranial nerves II through XII grossly intact. No focal or lateralizing signs. PSYCH: Appropriate affect. Alert and oriented to person, place and time. CLINICAL LABS: Reviewed. WBC trending down over 13,000 to over 11,000 ASSESSMENT: 1. Acute appendicitis PLAN: 1. Stable for discharge and she is tolerating diet, afebrile Procedures: Anesthesia: GETA, local Estimated Blood Loss (ml): 5 Pathology: other (appendix) Condition: stable Disposition: floor Operative Findings: 1. Acute appendicitis without rupture with periappendicitis 2. Terminal ileum unremarkable 3. Cecum unremarkable 4. Pelvic adhesions due to prior hysterectomy 5. Redundant sigmoid colon with adhesions to appendix Patient Condition at Discharge: Stable Plan - Discharge Summary Discharge Rx Participant: Yes New Discharge Prescriptions: New Acetaminophen Tab [Tylenol Tab] 1,000 mg PO Q6HR PRN #30 tablet PRN Reason: Pain Continue Montelukast [Singulair] 10 mg PO HS DULoxetine HCL [Cymbalta] 120 mg PO DAILY@0600 Ezetimibe [Zetia] 10 mg PO DAILY@0600 polyethylene glycoL 3350 [Miralax] 17 gm PO HS Ibuprofen [Motrin] 800 mg PO Q8H PRN PRN Reason: Pain lisinopriL [Zestril] 5 mg PO DAILY@0600 Omeprazole 20 mg PO DAILY@0600 Potassium Chloride [Klor-Con 10 ER] 10 meq PO DAILY@1800 Ascorbic Acid [Vitamin C] 1,000 mg PO DAILY@0600 EPINEPHrine (Auto Inject) [Epipen] 0.3 mg IM ONCE PRN PRN Reason: Anaphylaxis polyethylene glycoL 3350 [Miralax] 17 gm PO DAILY PRN PRN Reason: Constipation ALPRAZolam [Xanax] 1 mg PO BID PRN PRN Reason: Anxiety Albuterol Inhaler [Ventolin Hfa Inhaler] 1 puff INHALATION RT-Q4H PRN PRN Reason: Shortness Of Breath Acetaminophen Tab [Tylenol] 1,000 mg PO Q6H PRN PRN Reason: Fever And/ Or Pain Mirabegron [Myrbetriq] 50 mg PO DAILY Divalproex ER [Depakote ER] 1,000 mg PO HS cloZAPine [Clozaril] 200 mg PO HS Bumetanide [BUMEX] 0.5 mg PO HS Anastrozole [Arimidex] 1 mg PO DAILY@0600 Pravastatin Sodium [Pravachol] 40 mg PO DAILY@0600 Aloe Vera 1 applic TOPICAL QID PRN PRN Reason: sunburn Discharge Medication List DULoxetine HCL [Cymbalta] 120 mg PO DAILY@0600 07/03/20 [History] Ezetimibe [Zetia] 10 mg PO DAILY@0600 07/03/20 [History] Montelukast [Singulair] 10 mg PO HS 07/03/20 [History] polyethylene glycoL 3350 [Miralax] 17 gm PO HS 07/03/20 [History] Bumetanide [BUMEX] 0.5 mg PO HS 04/12/21 [History] cloZAPine [Clozaril] 200 mg PO HS 04/12/21 [History] Anastrozole [Arimidex] 1 mg PO DAILY@0607/18/21 [History] Ascorbic Acid [Vitamin C] 1,000 mg PO DAILY@0607/18/21 [History] Ibuprofen [Motrin] 800 mg PO Q8H PRN 07/18/21 [History] Omeprazole 20 mg PO DAILY@59907/18/21 [History] Potassium Chloride [Klor-Con 10 ER] 10 meq PO DAILY@1800 07/18/21 [History] lisinopriL [Zestril] 5 mg PO DAILY@0607/18/21 [History] ALPRAZolam [Xanax] 1 mg PO BID PRN 11/28/22 [History] Acetaminophen Tab [Tylenol] 1,000 mg PO Q6H PRN 11/28/22 [History] Albuterol Inhaler [Ventolin Hfa Inhaler] 1 puff INHALATION RT-Q4H PRN 11/28/22 [History] Aloe Vera 1 applic TOPICAL QID PRN 11/28/22 [History] Divalproex ER [Depakote ER] 1,000 mg PO HS 11/28/22 [History] EPINEPHrine (Auto Inject) [Epipen] 0.3 mg IM ONCE PRN 11/28/22 [History] Mirabegron [Myrbetriq] 50 mg PO DAILY 11/28/22 [History] Pravastatin Sodium [Pravachol] 40 mg PO DAILY@59911/28/22 [History] polyethylene glycoL 3350 [Miralax] 17 gm PO DAILY PRN 11/28/22 [History] Acetaminophen Tab [Tylenol Tab] 1,000 mg PO Q6HR PRN #30 tablet 11/29/22 [Rx] Follow up Appointment(s)/Referral(s): Zabrina Beltran MD [STAFF PHYSICIAN] - As Needed Chrystal Edwards NPC [Primary Care Provider] - 1 Week Activity/Diet/Wound Care/Special Instructions: Use antibacterial soap. No lifting over 10 pounds 2 weeks, December 12October shower. No bathtub soaks for 2 weeks, December 12 Wear abdominal binder daily for comfort except for showering. Use ice along incisions for today to prevent swelling. Take tylenol, aleve/ibuprofen, simethicone scheduled for 3 days for best pain relief Discharge Disposition: OTHER INSTITUTION NOT DEFINED
[2022-11-29] MEDS ORDERED: POTASSIUM CHLORIDE ER 10 MEQ TAB.ER.PRT PO SCH (18:00)
[2022-11-29] MEDS ORDERED: cloZAPine 100 MG TAB PO SCH (21:00)
== END 2022-11-29 16:53 | disposition other institution (70) ==
LOC: EC 01:26 → INTOOBSV 02:06 → 4SSUR 02:06
PROVIDERS: ADMIT Surgery Plastic and Reconstructive Surgery; ATTEND Surgery Plastic and Reconstructive Surgery
DX: K35.80 Unspecified acute appendicitis (principal); A41.9 Sepsis, unspecified organism; K56.7 Ileus, unspecified; K66.0 Peritoneal adhesions (postprocedural) (postinfection); E87.1 Hypo-osmolality and hyponatremia; I11.0 Hypertensive heart disease with heart failure; I50.9 Heart failure, unspecified; E11.21 Type 2 diabetes mellitus with diabetic nephropathy; E78.5 Hyperlipidemia, unspecified; M19.90 Unspecified osteoarthritis, unspecified site; F31.9 Bipolar disorder, unspecified; F41.1 Generalized anxiety disorder; R62.50 Unspecified lack of expected normal physiological development in childhood; Q43.8 Other specified congenital malformations of intestine; E66.01 Morbid (severe) obesity due to excess calories; Z68.41 Body mass index [BMI] 40.0-44.9, adult; Z79.811 Long term (current) use of aromatase inhibitors; Z79.899 Other long term (current) drug therapy; Z91.030 Bee allergy status; Z91.040 Latex allergy status; Z88.5 Allergy status to narcotic agent; Z88.0 Allergy status to penicillin; Z88.8 Allergy status to other drugs, medicaments and biological substances; Z91.018 Allergy to other foods; Z90.49 Acquired absence of other specified parts of digestive tract; Z90.710 Acquired absence of both cervix and uterus; Z98.890 Other specified postprocedural states; Z87.891 Personal history of nicotine dependence; Z80.3 Family history of malignant neoplasm of breast
CPT/HCPCS: 44970; S2900; 80048; 83036; 83605; 85025; 85610; 85730; 86850; 86900; 86901; 93005; 96374; 96376; 99285

== ENCOUNTER → 2023-04-16 | Outpatient (CLI) | payer MEDICARE, OTHER ==
--- NOTE | 2023-04-16 13:33 | P.PN ---
Subjective Progress Note Date: 04/16/23 Stage IA right breast cancer/breakdown of the incision Natalee is a 56-year-old white female status post right breast lumpectomy and axillary node resection performed on . Pathology revealed an ER/SD positive HER-2/haleigh negative G2 tumor which was 4 mm in size. The surgical margins were free. Several lymph nodes were removed all negative for malignancy. Postprocedure she developed a seroma and this was drained several times. The patient subsequently underwent radiation therapy of the whole breast over a three-week period which was completed Nov 03 2020. The patient was seen in the emergency room at [facility] on secondary to an opening in the incision, she returned on with a complaint of discomfort at this site. She was seen in wound clinic in 02-01-21. She did not receive any chemotherapy. She is on anastrozole. she was treated with a wound vac, with complete healing of the wound patient had a computed tomography scan of the chest abdomen and pelvis which showed no definitive evidence of metastatic disease except several pulmonary nodules of unknown significance. A repeat computed tomography scan will be ordered by medical oncology. This was done at [facility] as per the patient. We do not have the report. She has had a significant weight gain since her last visit now 117 KG. BMI 44.3, was 36.5 on last visit. Bilateral mammogram performed on benign BIRADS 2 The patient is not complaining of any new lumps masses or nodules of concern. She is seen in consultation with Gracie Palacios from [facility] (she moved there two weeks ago) Note from Dr. Pool medical oncology of 3923 review: 1. Patient's computed tomography scan was repeated on which showed resolution of groundglass opacity no pulmonary nodules identified Patient to follow up with Dr. Pool in March 2023 Patient to continue anastrozole She continues to chew tobacco, she was advised to stop this. Caffeine: 4-5 cups coffee and ice tea/day nicotine: vape, chews tobacco 1 can a day, smokes 1/2 PPD bassem-bromine: occasional Family History: sister: breast cancer cousin (paternal): colon cancer Hormonal History: menarche: 12 , 2 miscarriages, breast fed: no, age at first : 20 menopause: total hysterectomy in 30's for endometriosis BCP: no, estrogen: 1 month after surgery Surgical History: Hysterectomy total Gallbladder Dog bite eye surgery bilateral right shoulder surgery right knee surgery right breast lumpectomy and axillary node resection bladder suspension right knee Medical History: asthma back and hip pain suicidal thoughts stopped Bipolar Social History: nicotine: chews tobacco; smokes 1-2/day, vapes alcohol: stopped drugs: Medical marijuana for back and hip pain - Constitutional Constitutional: Denies chills, Denies fever - EENT Eyes: bilateral as per HPI Ears: bilateral: tinnitus Ears, nose, mouth and throat: Denies headache, Denies sore throat - Breasts Breasts: bilateral: as per HPI - Cardiovascular Comment: asthma Cardiovascular: Denies chest pain, Denies shortness of breath - Respiratory Comment: asthma - Gastrointestinal Comment: PUD - Genitourinary (Female) Genitourinary: Denies dysuria, Denies hematuria - Menstruation Menstruation: Reports post hysterectomy - Musculoskeletal Comment: arthritis, back and hip pain Musculoskeletal: Denies myalgias - Integumentary Integumentary: Denies pruritus, Denies rash - Neurological Neurological: Denies numbness, Denies weakness - Psychiatric Comment: bipolar Psychiatric: Reports anxiety, Reports depression - Endocrine Endocrine: Denies fatigue, Denies weight change - Hematologic/Lymphatic Comment: none - Allergic/Immunologic Allergic/Immunologic: Reports seasonal allergies - Objective - Vital Signs Vital signs: Intake & Output 04/15/23 04/16/23 04/16/23 18:59 06:59 18:59 Weight 117.027 kg - Constitutional General appearance: Present: cooperative - EENT Eyes: Present: EOMI ENT: Present: hearing grossly normal - Neck Neck: Present: normal ROM - Respiratory Respiratory: bilateral: CTA - Cardiovascular Heart sounds: normal: S1, S2 - Integumentary Integumentary: Present: normal turgor - Musculoskeletal Musculoskeletal: Present: gait normal - Psychiatric Psychiatric: Present: A&O x's 3, appropriate affect, intact judgment & insight - Additional findings Additional findings: Breast Exam: BRA: 36C Inspection: Bilateral grade 2 ptosis, well-healed scar right breast with some dimpling at the superior periareolar region Palpation: Right breast: Examination reveals fibrocystic changes, postsurgical and postradiation changes, prominent inframammary ridge but no discrete Lumps masses or nodule is of concern Right axilla: No adenopathy of concern Left breast: No dominant masses or nodules of concern, fibrocystic changes Left axilla: No adenopathy of concern Assessment and Plan Assessment: Impression: stage I right breast cancer no evidence of recurrence bilateral mammogram 10-10-22 BIRAD 2 Will need to obtain computed tomography scan results from [facility] and any further recommendation should be from medical oncology regarding question of some pulmonary nodules Plan: Continue anastrozole, follow up with DR. Corine Hernandez which would warrant interventional biopsy at this time Repeat bilateral mammogram in September with an appointment Patient recommended to stop chewing tobacco, stop smoking, and stop vaping continue to follow with DR. Ohara recommend weight loss recommend stopping vaping geriatric case manager: [phone], Lucille Sullivan CC: Chrystal Edwards; Dr. Cox Additional CC's: Chrystal Edwards
== END ==
LOC: WWCWWP 12:33
PROVIDERS: ATTEND Surgery
DX: R92.8 Other abnormal and inconclusive findings on diagnostic imaging of breast (principal); C50.911 Malignant neoplasm of unspecified site of right female breast; N64.89 Other specified disorders of breast; F17.290 Nicotine dependence, other tobacco product, uncomplicated; J45.909 Unspecified asthma, uncomplicated; Z17.0 Estrogen receptor positive status [ER+]; Z80.3 Family history of malignant neoplasm of breast; Z85.3 Personal history of malignant neoplasm of breast; Z92.3 Personal history of irradiation; Z91.030 Bee allergy status; Z90.11 Acquired absence of right breast and nipple; Z91.018 Allergy to other foods; Z88.0 Allergy status to penicillin; Z91.040 Latex allergy status; Z88.8 Allergy status to other drugs, medicaments and biological substances; Z79.51 Long term (current) use of inhaled steroids

== ENCOUNTER → 2023-10-22 | Outpatient (CLI) | payer MEDICARE, OTHER ==
--- NOTE | 2023-10-22 11:16 | MM ---
Reason for Exam: Additional evaluation requested from prior study. Last mammogram was performed 1 year(s) and 1 month(s) ago. Patient History: Menarche at age 12. First Full-Term at age 21. Hysterectomy at age 37. Breast cancer, right, age 54. Previous chest radiation therapy at age 54. Estrogen, starting at age 37 for 3 years. 08/08/2020, Lumpectomy on the Right side. 08/08/2020, Malignant Core Biopsy on the right side. 07/14/2020, Malignant Core Biopsy on the right side. Sister had breast cancer at or over age 50. Prior Study Comparison: 03/26/2022 Right Diagnostic Mammogram, [facility]. 10/10/2022 Bilateral MG 3D diag mammo w/cad ANSELMO, [facility]. Tissue Density: There are scattered areas of fibroglandular density. Findings: Analyzed By CAD. Surgical changes right breast with surgical clips. No new suspicious masses, calcifications or distortions. Overall Assessment: Benign, BI-RAD 2 Management: Screening Mammogram of both breasts in 1 year. Results were given to the patient verbally at the time of exam. Patient should continue monthly self-breast exams. A clinical breast exam by your physician is recommended on an annual basis. This exam should not preclude additional follow-up of suspicious palpable abnormalities. Note on Ariana scores and lifetime risk: 1. A Ariana score greater than 3% is considered moderate risk. If this is the case, consider specialist referral to assess eligibility for a risk reducing agent. 2. If overall lifetime risk for the development of breast cancer is 20% or higher, the patient may qualify for future screening with alternating mammogram and breast MRI. Electronically signed and approved by: Iker Sanabria DO
== END | disposition home or self-care (01) ==
LOC: RADMAMWWP 10:44
PROVIDERS: ATTEND Surgery
DX: R92.323 Mammographic fibroglandular density, bilateral breasts (principal); Z85.3 Personal history of malignant neoplasm of breast; Z80.3 Family history of malignant neoplasm of breast
CPT/HCPCS: 77062; 77066

== ENCOUNTER → 2023-10-24 | Outpatient (CLI) | payer MEDICARE, OTHER ==
--- NOTE | 2023-10-24 12:18 | P.PN ---
Subjective Progress Note Date: 10/24/23 10-24-23 Stage IA right breast cancer/breakdown of the incision Natalee is a 56-year-old white female status post right breast lumpectomy and axillary node resection performed on . Pathology revealed an ER/TN positive HER-2/haleigh negative G2 tumor which was 4 mm in size. The surgical margins were free. Several lymph nodes were removed all negative for malignancy. Postprocedure she developed a seroma and this was drained several times. The patient subsequently underwent radiation therapy of the whole breast over a three-week period which was completed Nov 03 2020. The patient was seen in the emergency room at [facility] on secondary to an opening in the incision, she returned on with a complaint of discomfort at this site. She was seen in wound clinic in 02-01-21. She did not receive any chemotherapy. She is on anastrozole. she was treated with a wound vac, with complete healing of the wound She did not have any chemotherapy She is on Anastrazole patient had a computed tomography scan of the chest abdomen and pelvis which sh owed no definitive evidence of metastatic disease except several pulmonary nodules of unknown significance. A repeat computed tomography scan will be ordered by medical oncology. This was done at [facility] as per the patient. We do not have the report. She has had a significant weight gain since her last visit now 117 KG. BMI 44.3, was 36.5 on last visit. Bilateral mammogram performed on 10-22-23 benign BIRADS 2 She is not complaining of any changes in her breast The patient is not complaining of any new lumps masses or nodules of concern. She is seen in consultation with Ijeoma Santiago from the [facility], prior caregiver was Gracie Palacios She has gained about 60 pounds since her last visit She is taking Anastrazole from Dr. Hernandez 1. Patient's computed tomography scan was repeated on which showed resolution of groundglass opacity no pulmonary nodules identified Patient to follow up with Dr. Hernandez in March 2023 not sure if she saw her Patient to continue anastrozole She continues to chew tobacco, she was advised to stop this. Caffeine: 4-5 cups coffee and ice tea/day nicotine: vape, chews tobacco 1 can a day, smokes 1/2 PPD bassem-bromine: occasional Family History: sister: breast cancer cousin (paternal): colon cancer Hormonal History: menarche: 12 , 2 miscarriages, breast fed: no, age at first : 20 menopause: total hysterectomy in 30's for endometriosis BCP: no, estrogen: 1 month after surgery Surgical History: Hysterectomy total Gallbladder Dog bite eye surgery bilateral right shoulder surgery right knee surgery right breast lumpectomy and axillary node resection bladder suspension right knee appendix Medical History: asthma back and hip pain suicidal thoughts stopped Bipolar back pain/sciatic nerve Social History: nicotine: chews tobacco; smokes 1-2/day, vapes alcohol: stopped drugs: Medical marijuana for back and hip pain - Constitutional Constitutional: Denies chills, Denies fever - EENT Eyes: bilateral as per HPI Ears: bilateral: tinnitus Ears, nose, mouth and throat: Denies headache, Denies sore throat - Breasts Breasts: bilateral: as per HPI - Cardiovascular Comment: asthma Cardiovascular: Denies chest pain, Denies shortness of breath - Respiratory Comment: asthma - Gastrointestinal Comment: PUD - Genitourinary (Female) Genitourinary: Denies dysuria, Denies hematuria - Menstruation Menstruation: Reports post hysterectomy - Musculoskeletal Comment: arthritis, back and hip pain Musculoskeletal: Denies myalgias - Integumentary Integumentary: Denies pruritus, Denies rash - Neurological Neurological: Denies numbness, Denies weakness - Psychiatric Comment: bipolar Psychiatric: Reports anxiety, Reports depression - Endocrine Endocrine: Denies fatigue, Denies weight change - Hematologic/Lymphatic Comment: none - Allergic/Immunologic Allergic/Immunologic: Reports seasonal allergies - Objective - Constitutional General appearance: Present: cooperative - EENT Eyes: Present: EOMI ENT: Present: hearing grossly normal - Neck Neck: Present: normal ROM - Respiratory Respiratory: bilateral: CTA - Cardiovascular Rhythm: regular Heart sounds: normal: S1, S2 - Gastrointestinal General gastrointestinal: Present: soft - Integumentary Integumentary: Present: normal turgor - Musculoskeletal Musculoskeletal Comment(s): uses a cane, has gained about 60 pounds - Psychiatric Psychiatric: Present: A&O x's 3, intact judgment & insight - Additional findings Additional findings: Breast Exam: BRA: 36C Inspection: Bilateral grade 2 ptosis, well-healed scar right breast with some dimpling at the superior periareolar region Palpation: Right breast: Examination reveals fibrocystic changes, postsurgical and postradiation changes, prominent inframammary ridge but no discrete Lumps masses or nodule is of concern Right axilla: No adenopathy of concern Left breast: No dominant masses or nodules of concern, fibrocystic changes Left axilla: No adenopathy of concern Assessment and Plan Assessment: Impression: stage I right breast cancer no evidence of recurrence bilateral mammogram 10-22-23 BIRAD 2 Will need to obtain computed tomography scan results from [facility] and any further recommendation should be from medical oncology regarding question of some pulmonary nodules Plan: Continue anastrozole, follow up with DR. Hernandez Nothing which would warrant interventional biopsy at this time Repeat bilateral mammogram in October 2024 Patient recommended to stop chewing tobacco, stop smoking, and stop vaping continue to follow with DR. Ohara recommend weight loss recommend stopping vaping follow up in 6 months pillowcase sewer: [phone], Lucille Sullivan CC: Chrystal Edwards; Dr. Cox
[2023-10-24 12:34] VITALS: BP 113/71; PULSE 103; RESP 17; TEMP 98.2
== END ==
LOC: WWCWWP 11:29
PROVIDERS: ATTEND Surgery
DX: R92.8 Other abnormal and inconclusive findings on diagnostic imaging of breast (principal); C50.911 Malignant neoplasm of unspecified site of right female breast; N64.89 Other specified disorders of breast; F17.290 Nicotine dependence, other tobacco product, uncomplicated; Z17.0 Estrogen receptor positive status [ER+]; Z92.3 Personal history of irradiation; Z80.3 Family history of malignant neoplasm of breast; Z91.030 Bee allergy status; Z88.0 Allergy status to penicillin; Z91.040 Latex allergy status; Z91.018 Allergy to other foods; Z88.8 Allergy status to other drugs, medicaments and biological substances; Z88.5 Allergy status to narcotic agent; Z88.1 Allergy status to other antibiotic agents

== ENCOUNTER → 2024-04-30 | Outpatient (CLI) | payer MEDICARE, OTHER ==
[2024-04-30 12:36] VITALS: BP 139/84; PULSE 89; RESP 18; TEMP 98.7
--- NOTE | 2024-04-30 12:49 | P.PN ---
Subjective Progress Note Date: 04/30/24 10-24-23 Stage IA right breast cancer/breakdown of the incision Natalee is a 56-year-old white female status post right breast lumpectomy and axillary node resection performed on . Pathology revealed an ER/UT positive HER-2/haleigh negative G2 tumor which was 4 mm in size. The surgical margins were free. Several lymph nodes were removed all negative for malignancy. Postprocedure she developed a seroma and this was drained several times. The patient subsequently underwent radiation therapy of the whole breast over a three-week period which was completed Nov 03 2020. The patient was seen in the emergency room at [facility] on secondary to an opening in the incision, she returned on with a complaint of discomfort at this site. She was seen in wound clinic in 02-01-21. She did not receive any chemotherapy. She is on anastrozole. she was treated with a wound vac, with complete healing of the wound She did not have any chemotherapy She is on Anastrazole patient had a computed tomography scan of the chest abdomen and pelvis which sh owed no definitive evidence of metastatic disease except several pulmonary nodules of unknown significance. A repeat computed tomography scan will be ordered by medical oncology. This was done at [facility] as per the patient. We do not have the report. She has had a significant weight gain since her last visit now 117 KG. BMI 44.3, was 36.5 on last visit. Bilateral mammogram performed on 10-22-23 benign BIRADS 2 She is not complaining of any changes in her breast The patient is not complaining of any new lumps masses or nodules of concern. She is seen in consultation with Ijeoma Santiago from the [facility], prior caregiver was Gracie Palacios She has gained about 60 pounds since her last visit She is taking Anastrazole from Dr. Hernandez 1. Patient's computed tomography scan was repeated on which showed resolution of groundglass opacity no pulmonary nodules identified Patient to follow up with Dr. Hernandez in March 2023 not sure if she saw her Patient to continue anastrozole She continues to chew tobacco, she was advised to stop this. 04-30-24 Natalee is a 58-year-old white female status post right breast lumpectomy and axillary node resection performed on . Pathology revealed an ER/UT positive HER-2/haleigh negative G2 tumor which was 4 mm in size. The surgical margins were free. Several lymph nodes were removed all negative for malignancy. Postprocedure she developed a seroma and this was drained several times. The patient subsequently underwent radiation therapy of the whole breast over a three-week period which was completed Nov 03 2020. The patient was seen in the emergency room at [facility] on secondary to an opening in the incision, she returned on with a complaint of discomfort at this site. She was seen in wound clinic in 02-01-21. She did not receive any chemotherapy. She is on anastrozole. she was treated with a wound vac, with complete healing of the wound She is not complaining of any new lumps masses or nodules of concern in either breast. She tore the meniscus in both of her knees and is having some difficulty with ambulation. She did not have any chemotherapy She is on Anastrazole Bilateral mammogram performed on 10-22-23 benign BIRADS 2 She is seen with her transitions rn care coordinator: Perriluis Pulido Caffeine: 4-5 cups coffee and ice tea/day nicotine: vape, chews tobacco 1 can a day, smokes 1/2 PPD bassem-bromine: occasional Family History: sister: breast cancer cousin (paternal): colon cancer Hormonal History: menarche: 12 , 2 miscarriages, breast fed: no, age at first : 20 menopause: total hysterectomy in 30's for endometriosis BCP: no, estrogen: 1 month after surgery Surgical History: Hysterectomy total Gallbladder Dog bite eye surgery bilateral right shoulder surgery right knee surgery right breast lumpectomy and axillary node resection bladder suspension right knee appendix Medical History: asthma back and hip pain suicidal thoughts stopped Bipolar back pain/sciatic nerve Social History: nicotine: chews tobacco; smokes 1-2/day, vapes alcohol: stopped drugs: Medical marijuana for back and hip pain - Constitutional Constitutional: Denies chills, Denies fever - EENT Eyes: bilateral as per HPI Ears: bilateral: tinnitus Ears, nose, mouth and throat: Denies headache, Denies sore throat - Breasts Breasts: bilateral: as per HPI - Cardiovascular Comment: asthma Cardiovascular: Denies chest pain, Denies shortness of breath - Respiratory Comment: asthma - Gastrointestinal Comment: PUD - Genitourinary (Female) Genitourinary: Denies dysuria, Denies hematuria - Menstruation Menstruation: Reports post hysterectomy - Musculoskeletal Comment: arthritis, back and hip pain Musculoskeletal: Denies myalgias - Integumentary Integumentary: Denies pruritus, Denies rash - Neurological Neurological: Denies numbness, Denies weakness - Psychiatric Comment: bipolar Psychiatric: Reports anxiety, Reports depression - Endocrine Endocrine: Denies fatigue, Denies weight change - Hematologic/Lymphatic Comment: none - Allergic/Immunologic Allergic/Immunologic: Reports seasonal allergies - Objective - Vital Signs Vital signs: Vital Signs Temp 98.7 F 04/30/24 12:34 Pulse 89 04/30/24 12:34 Resp 18 04/30/24 12:34 BP 139/84 04/30/24 12:34 Pulse Ox 95 04/30/24 12:34 FiO2 Intake & Output 04/29/24 04/30/24 04/30/24 18:59 06:59 18:59 Weight 104.326 kg - Constitutional General appearance: Present: cooperative - EENT Eyes: Present: EOMI ENT: Present: hearing grossly normal - Neck Neck: Present: normal ROM - Respiratory Respiratory: bilateral: CTA - Cardiovascular Heart sounds: normal: S1, S2 - Integumentary Integumentary: Present: normal turgor - Musculoskeletal Musculoskeletal: Present: gait normal - Psychiatric Psychiatric Comment(s): seen with transitions rn care coordinator Psychiatric: Present: A&O x's 3, appropriate affect - Additional findings Additional findings: Breast Exam: BRA: 36C Inspection: Bilateral grade 2 ptosis, well-healed scar right breast with some dimpling at the superior periareolar region Palpation: Right breast: Examination reveals fibrocystic changes, postsurgical and postradiation changes, prominent inframammary ridge but no discrete Lumps masses or nodule is of concern Right axilla: No adenopathy of concern Left breast: No dominant masses or nodules of concern, fibrocystic changes Left axilla: No adenopathy of concern Assessment and Plan Assessment: Impression: stage I right breast cancer no evidence of recurrence bilateral mammogram 10-22-23 BIRAD 2 Will need to obtain computed tomography scan results from [facility] and any further recommendation should be from medical oncology regarding question of some pulmonary nodules Plan: Continue anastrozole, follow up with DR. Hernandez Nothing which would warrant interventional biopsy at this time Repeat bilateral mammogram in October 2024 Patient recommended to stop chewing tobacco, stop smoking, and stop vaping continue to follow with DR. Ohara recommend weight loss recommend stopping vaping follow up in October 2024 case folder: [phone], Lucille Sullivan CC: Chrystal Edwards; Dr. Hernandez
== END ==
LOC: WWCWWP 11:29
PROVIDERS: ATTEND Surgery
DX: R92.8 Other abnormal and inconclusive findings on diagnostic imaging of breast (principal); F17.290 Nicotine dependence, other tobacco product, uncomplicated; N64.89 Other specified disorders of breast; R91.8 Other nonspecific abnormal finding of lung field; Z80.3 Family history of malignant neoplasm of breast; Z92.3 Personal history of irradiation; Z85.3 Personal history of malignant neoplasm of breast; Z91.030 Bee allergy status; Z91.018 Allergy to other foods; Z88.0 Allergy status to penicillin; Z88.5 Allergy status to narcotic agent; Z91.040 Latex allergy status; Z88.8 Allergy status to other drugs, medicaments and biological substances

== ENCOUNTER 2024-10-14 13:24 | Observation (INO) | payer MEDICARE, OTHER ==
--- NOTE | 2024-10-14 14:50 | ED ---
SOB HPI - General Chief Complaint: Shortness of Breath Stated Complaint: SOB Time Seen by Provider: 10/14/24 13:40 Source: patient, EMS Mode of arrival: EMS - History of Present Illness Initial Comments: 58-year-old female with past medical history of CHF, COPD who wears 3 L home O2 who presents emergency department as a transfer from [facility]. Patient went into their facility after she was found to have an oxygen saturation of 75% on her 3 L. Laboratory studies were performed. White blood cell count is 12.4. Chest x-ray was normal. She was diagnosed with COPD infection. They wanted admit the patient to the hospital however her sister who is her customer resource specialist wanted her to go over to [facility] due to patient has established care with Dr. Cormier. Patient had a D-dimer of 0.53. Troponin was negative. Patient was given a breathing treatment and 125 of Solu-Medrol. She later received Lasix and aspirin. - Related Data Home Medications Medication Instructions Recorded Confirmed DULoxetine HCL [Cymbalta] 120 mg PO DAILY@59907/03/20 04/30/24 Ezetimibe [Zetia] 10 mg PO DAILY@0607/03/20 04/30/24 Montelukast [Singulair] 10 mg PO HS 07/03/20 04/30/24 Bumetanide [BUMEX] 0.5 mg PO HS 04/12/21 04/30/24 cloZAPine [Clozaril] 200 mg PO HS 04/12/21 04/30/24 Anastrozole [Arimidex] 1 mg PO DAILY@59907/18/21 04/30/24 Ascorbic Acid [Vitamin C] 1,000 mg PO DAILY@59907/18/21 04/30/24 Ibuprofen [Motrin] 800 mg PO Q8H PRN 07/18/21 04/30/24 Omeprazole 20 mg PO DAILY@59907/18/21 04/30/24 Potassium Chloride [Klor-Con 10 ER] 10 meq PO DAILY@1800 07/18/21 04/30/24 lisinopriL [Zestril] 5 mg PO DAILY@0607/18/21 04/30/24 ALPRAZolam [Xanax] 1 mg PO BID PRN 11/28/22 04/30/24 Albuterol Inhaler [Ventolin Hfa 1 puff INHALATION RT-Q4H PRN 11/28/22 04/30/24 Inhaler] Divalproex ER [Depakote ER] 1,000 mg PO HS 11/28/22 04/30/24 EPINEPHrine (Auto Inject) [Epipen] 0.3 mg IM ONCE PRN 11/28/22 04/30/24 Mirabegron [Myrbetriq] 50 mg PO DAILY 11/28/22 04/30/24 Pravastatin Sodium [Pravachol] 40 mg PO DAILY@0600 11/28/22 04/30/24 polyethylene glycoL 3350 [Miralax] 17 gm PO DAILY PRN 11/28/22 04/30/24 Previous Rx's Medication Instructions Recorded Acetaminophen Tab [Tylenol Tab] 1,000 mg PO Q6HR PRN #30 tablet 11/29/22 Allergies Allergy/AdvReac Type Severity Reaction Status Date / Time bee venom protein (honey bee) Allergy Severe Anaphylaxis Verified 10/14/24 13:41 lemon Allergy Severe Anaphylaxis Verified 10/14/24 13:41 Penicillins Allergy Severe Anaphylaxis Verified 10/14/24 13:41 tramadol [From Ultram] Allergy Severe Anaphylaxis Verified 10/14/24 13:41 latex Allergy Mild Rash/Hives Verified 10/14/24 13:41 tablet vitamins Allergy Severe Anaphylaxis Uncoded 10/14/24 13:41 rootbeer pop Allergy Intermediate Rash/Hives Uncoded 10/14/24 13:41 Review of Systems ROS Statement: Those systems with pertinent positive or pertinent negative responses have been documented in the HPI. ROS Other: All systems not noted in ROS Statement are negative. Past Medical History Past Medical History: Asthma, Diabetes Mellitus, Hyperlipidemia, Hypertension, Osteoarthritis (OA) Additional Past Medical History / Comment(s): ?MOUTH CANCER per patient. was previously borderline diabetic, not on any medications currently History of Any Multi-Drug Resistant Organisms: None Reported Past Surgical History: Cholecystectomy, Hysterectomy, Orthopedic Surgery Additional Past Surgical History / Comment(s): EYE SURGERY. sx to repair dog bite, rt shoulder sx Past Anesthesia/Blood Transfusion Reactions: No Reported Reaction Past Psychological History: Anxiety, Bipolar, Depression Smoking Status: Current every day smoker, Vaper Past Alcohol Use History: None Reported Past Drug Use History: Marijuana, Opiates - Past Family History Sister(s) Family Medical History: Cancer Additional Family Medical History / Comment(s): breast Course Vital Signs 10/14/24 13:30 Temperature 98.4 F Pulse Rate 90 Respiratory 22 Rate Blood Pressure 117/91 O2 Sat by Pulse 93 L Oximetry Disposition Clinical Impression: Respiratory insufficiency, COPD exacerbation Disposition: ADMITTED IP TO THIS HOSP Condition: Stable Is patient prescribed a controlled substance at d/c from ED?: No Referrals: James Looney MD [Primary Care Provider] - 1-2 days Time of Disposition: 14:51 Decision to Admit Reason: Admit from EC Decision Date: 10/14/24 Decision Time: 14:51
[2024-10-14] MEDS ORDERED: NALOXONE 0.4 MG/ML 1 ML VIAL IV PRN (14:51)
[2024-10-14] MEDS: IPRATROPIUM-ALBUTEROL 3 ML NEB INHALATION SCH ×2 (16:02→19:44)
[2024-10-14] MEDS ORDERED: bisacodyL 10 MG SUPP RECTAL PRN (19:06)
[2024-10-14] MEDS ORDERED: guaiFENesin SYRUP 100MG/5ML 200 MG/10 ML CUP PO PRN (19:06)
[2024-10-14] MEDS ORDERED: polyethylene glycoL 3350 17 GM POWD.PACK PO PRN (19:06)
[2024-10-14] MEDS ORDERED: ALBUTEROL NEBULIZED 2.5 MG/3 ML INHALATION PRN (19:06)
[2024-10-14] MEDS ORDERED: DOCUSATE 100 MG CAP PO PRN (19:06)
[2024-10-14] MEDS ORDERED: NA PHOS,M-B/NA PHOS,DI-BA 133 ML ENEMA RECTAL PRN (19:06)
[2024-10-14] MEDS ORDERED: NON FORMULARY DRUG (Epinephrine (Auto Inject) 0.3 MG/0.3 ML Each) IM PRN (19:06)
[2024-10-14] MEDS ORDERED: ALPRAZolam 1 MG TAB PO PRN (19:06)
[2024-10-14] MEDS ORDERED: DEXTROSE 50% SYRINGE 50 ML IVP PRN ×2 (19:14)
--- NOTE | 2024-10-14 19:23 | P.HPIM ---
History of Present Illness This is a pleasant 58 years old female with past medical history of COPD. Schizophrenia in assisted living home, and other multiple medical problems as below: Presents because of increasing dyspnea over the last few days associated with cough and as described by the patient as regular phlegm. Patient denies chest pain or abdominal pain but she complains from chronic back pain and knee pain. The patient is also accompanied by her sister and guardian who helped to provide information. Through transfer paper from her assisted living home stating patient was not very coherent, hypoxic and 75 to 77% gradually improved while she is on oxygen although this was not confirmed. Patient also complains from frequent falling last time she fell was the day before yesterday. Usually she walks with a cane She does not have any specific GI or GI symptoms. Usually she passes kidney stones and feels some dysuria urgency. But currently she does not have such symptoms. Patient is on home oxygen 3 L via nasal cannula. Patient daughter states that she has been previously admitted for heart failure. Possible also elements of COPD. Past Medical History Past Medical History: Asthma, Diabetes Mellitus, Hyperlipidemia, Hypertension, Osteoarthritis (OA) Additional Past Medical History / Comment(s): ?MOUTH CANCER per patient. was previously borderline diabetic, not on any medications currently History of Any Multi-Drug Resistant Organisms: None Reported Past Surgical History: Cholecystectomy, Hysterectomy, Orthopedic Surgery Additional Past Surgical History / Comment(s): EYE SURGERY. sx to repair dog bite, rt shoulder sx Past Anesthesia/Blood Transfusion Reactions: No Reported Reaction Past Psychological History: Anxiety, Bipolar, Depression Smoking Status: Current every day smoker, Vaper Past Alcohol Use History: None Reported Past Drug Use History: Marijuana, Opiates - Past Family History Sister(s) Family Medical History: Cancer Additional Family Medical History / Comment(s): breast Medications and Allergies Home Medications Medication Instructions Recorded Confirmed Type DULoxetine HCL [Cymbalta] 120 mg PO DAILY 07/03/20 10/14/24 History Ezetimibe [Zetia] 10 mg PO DAILY 07/03/20 10/14/24 History Montelukast [Singulair] 10 mg PO DAILY 07/03/20 10/14/24 History Bumetanide [BUMEX] 0.5 mg PO DAILY 04/12/21 10/14/24 History cloZAPine [Clozaril] 100 mg PO HS 04/12/21 10/14/24 History Anastrozole [Arimidex] 1 mg PO DAILY 07/18/21 10/14/24 History Ascorbic Acid [Vitamin C] 500 mg PO DAILY 07/18/21 10/14/24 History Omeprazole 20 mg PO DAILY 07/18/21 10/14/24 History Potassium Chloride [Klor-Con 10 ER] 10 meq PO DAILY 07/18/21 10/14/24 History lisinopriL [Zestril] 5 mg PO DAILY 07/18/21 10/14/24 History ALPRAZolam [Xanax] 1 mg PO DAILY PRN 11/28/22 10/14/24 History Albuterol Inhaler [Ventolin Hfa 1 puff INHALATION RT-Q4H PRN 11/28/22 10/14/24 History Inhaler] Divalproex ER [Depakote ER] 1,000 mg PO HS 11/28/22 10/14/24 History EPINEPHrine (Auto Inject) [Epipen] 0.3 mg IM ONCE PRN 11/28/22 10/14/24 History Pravastatin Sodium [Pravachol] 40 mg PO DAILY 11/28/22 10/14/24 History polyethylene glycoL 3350 [Miralax] 17 gm PO DAILY PRN 11/28/22 10/14/24 History ALPRAZolam [Xanax] 1 mg PO DAILY@1700 10/14/24 10/14/24 History Acetaminophen Tab [Tylenol Tab] 500 mg PO DAILY 10/14/24 10/14/24 History Acetaminophen [Tylenol] 325 mg PO Q4H PRN 10/14/24 10/14/24 History Budesonide [Pulmicort] 0.5 mg INHALATION RT-BID 10/14/24 10/14/24 History Diclofenac Sodium Gel [Voltaren 1% 1 applic TOPICAL BID 10/14/24 10/14/24 History Gel] Docusate [Colace] 100 mg PO DAILY PRN 10/14/24 10/14/24 History Ft Antacid-Antigas Liquid 10 ml PO DIRECTED PRN 10/14/24 10/14/24 History HYDROcodone/APAP 7.5-325MG [Sweet Water 1 tab PO BID PRN 10/14/24 10/14/24 History 7.5-325] Ipratropium-Albuterol Nebulize 3 ml INHALATION RT-QID PRN 10/14/24 10/14/24 History [Duoneb 0.5 mg-3 mg/3 ml Soln] Kaopectate Vanilla Liquid 30 ml PO Q30M PRN MDD 240ml (8 10/14/24 10/14/24 History doses) Linaclotide [Linzess] 145 mcg PO DAILY 10/14/24 10/14/24 History Magnesium Hydroxide [Milk of 2,400 mg PO DAILY PRN 10/14/24 10/14/24 History Magnesia] Na Phos,M-B/Na Phos,Di-Ba [Fleet 133 ml RECTAL DAILY PRN 10/14/24 10/14/24 History Adult] Oxybutynin ER [Ditropan XL] 15 mg PO BID 10/14/24 10/14/24 History allopurinoL 200 mg PO DAILY 10/14/24 10/14/24 History bisacodyL [Dulcolax] 10 mg RECTAL DAILY PRN 10/14/24 10/14/24 History fluPHENAZine [Prolixin 5MG] 5 mg PO BID@0800,1700 10/14/24 10/14/24 History guaiFENesin SYRUP 100MG/5ML 200 mg PO Q6H PRN 10/14/24 10/14/24 History [Robitussin] metFORMIN HCL [metFORMIN HCL ER] 750 mg PO DAILY@1700 10/14/24 10/14/24 History Allergies Allergy/AdvReac Type Severity Reaction Status Date / Time bee venom protein (honey bee) Allergy Severe Anaphylaxis Verified 10/14/24 15:20 lemon Allergy Severe Anaphylaxis Verified 10/14/24 15:20 Penicillins Allergy Severe Anaphylaxis Verified 10/14/24 15:20 tramadol [From Ultram] Allergy Severe Anaphylaxis Verified 10/14/24 15:20 latex Allergy Mild Rash/Hives Verified 10/14/24 15:20 tablet vitamins Allergy Severe Anaphylaxis Uncoded 10/14/24 13:41 rootbeer pop Allergy Intermediate Rash/Hives Uncoded 10/14/24 13:41 Physical Exam Vitals: Vital Signs Temp Pulse Resp BP Pulse Ox 10/14/24 16:51 90 20 102/91 93 L 10/14/24 16:16 88 10/14/24 16:03 90 10/14/24 13:30 98.4 F 90 22 117/91 93 L Intake and Output 10/14/24 10/14/24 10/14/24 06:59 14:59 22:59 Other: Weight 117.934 kg -GENERAL: The patient is alert and oriented x3, partially confused, somewhat poor historian, slow to respond at times, not in any acute distress. Well developed, well nourished. Obese HEENT: Pupils are round and equally reacting to light. EOMI. No scleral icterus. No conjunctival pallor. Normocephalic, atraumatic. No pharyngeal erythema. No thyromegaly. CARDIOVASCULAR: S1 and S2 present. No murmurs, rubs, or gallops. -PULMONARY: Chest is clear to auscultation, no wheezing , bilateral basal crackles. ABDOMEN: Soft, nontender, nondistended, normoactive bowel sounds. No palpable organomegaly. MUSCULOSKELETAL: No joint swelling or deformity. -EXTREMITIES: No cyanosis, clubbing, 1+ bilateral pitting leg edema. NEUROLOGICAL: Gross neurological examination did not reveal any focal deficits. SKIN: No rashes. no petechiae. Assessment and Plan Assessment: Acute on chronic CHF exacerbation Acute COPD exacerbation Acute on chronic hypoxic respiratory failure Metabolic encephalopathy Schizophrenia Obesity with BMI 43.3. Plan: Continue steroids, started emergency room. Will monitor for worsening psych symptoms also return if you are closely. Increase Bumex to 1 mg Continued oxygen therapy Bronchodilator. Pulmonary team consulted Labs and medication were reviewed.. Continue same treatment. Continue with symptomatic treatment. Resume home medication. Monitor labs and vitals. DVT and GI prophylaxis. Further recommendations as per clinical course of the patient DVT prophylaxis: Subcutaneous h Lovenox GI Prophylaxis: Protonix PT/OT: Pending Prognosis is guarded
[2024-10-14] MEDS: BUDESONIDE 0.5 MG/2 ML NEBU INHALATION SCH (19:24)
[2024-10-14] MEDS ORDERED: LORazepam 2 MG/ML INJ IV PRN (19:27)
[2024-10-14] MEDS: HYDROcodone/APAP 7.5-325MG 1 EACH TAB PO PRN (19:48)
[2024-10-14 20:37] LABS: Glucose,Whole Blood 181 mg/dL (70-110)
[2024-10-14] MEDS: INSULIN LISPRO (HumaLOG) 100 UNIT/ML 10 mL VL SQ SCH (20:43)
[2024-10-14 21:09] LABS: Influenza A Not Detected (Not Detectd); Influenza B Not Detected (Not Detectd); RSV Not Detected (Not Detectd)
[2024-10-14] MEDS: OXYBUTYNIN 15 MG TAB.ER.24 PO SCH (22:32)
[2024-10-14] MEDS: cloZAPine 100 MG TAB PO SCH (22:33)
[2024-10-14] MEDS: DIVALPROEX ER 500 MG TAB.ER.24H PO SCH (22:33)
[2024-10-15 00:59] LABS: HCT 37.9 % (37.2-46.3); MCH 28.9 pg (27.0-32.0); MCHC 31.7 g/dL (32.0-37.0); MCV 91.3 fL (80.0-97.0); Mean Platelet Volume 9.3 fL (9.5-12.2); Platelet Count 417 10*3/uL (140-440); RBC 4.15 10*6/uL (4.10-5.20); RDW 16.5 % (11.5-14.5); WBC 15.46 10*3/uL (4.50-10.00)
[2024-10-15 01:15] LABS: African American GFR (CKD) >90 (>60 ml/min/1.73 sqM); Anion Gap 12 mmol/L; Blood Urea Nitrogen 18 mg/dL (7-17); Calcium 9.1 mg/dL (8.4-10.2); Carbon Dioxide 30 mmol/L (22-30); Chloride 92 mmol/L (98-107); Glucose 184 mg/dL (74-99); Non-African American GFR(CKD) >90 (>60 ml/min/1.73 sqM); Potassium 4.6 mmol/L (3.5-5.1); Sodium 134 mmol/L (137-145)
--- NOTE | 2024-10-15 04:31 | P.CNPUL ---
History of Present Illness Consult date: 10/15/24 Requesting physician: Beth Li Reason for consult: COPD, other Chief complaint: Transferred from outside facility History of present illness: Patient is a 58-year-old female with past medical history significant for hypertension, hyperlipidemia, diabetes mellitus, CHF, asthma/COPD, chronic oxygen dependence on 3 L/min nasal cannula, schizophrenia, resides at [facility] home. Patient is a questionable historian. Reportedly, found to be hypoxic at her [facility] home, SpO2 was reading in the mid 70s while on her 3 L/min nasal cannula. She was originally sent to [facility], felt to be in COPD/asthma exacerbation, and transferred to our facility yesterday afternoon. Chest x-ray from outside facility reviewed and remarkable for cardiomegaly with possible mild pulmonary vascular congestion. CBC done at our facility including a WBC count of 15.5, hemoglobin 12, platelets 417. BMP: Sodium 134, potassium 4.6, chloride 92, serum bicarb 30, BUN 18, creatinine 0.47, glucose 184. Viral sc reen was negative for influenza A/B, RSV, COVID. Patient currently being evaluated on the general medical floor. She is just ambulated back to bed from bedside commode. On 3 L/min nasal cannula. Not in any respiratory distress. As stated above, she is a poor historian. She resides at an ass [facility] home, [facility], in [place]. Does states she is more short of breath than normal. Denies any coughing, sputum production, fevers or chills. She remains afebrile. Denies any chest pain, heart palpitations, syncopal events, lower extremity edema. Denies missing any doses of her Bumex. Previously started on a combination of DuoNebs and IV Solu-Medrol. Hemodynamics are stable. Review of Systems Constitutional: Denies chills, Denies fatigue, Denies fever, Denies night sweats, Denies poor appetite, Denies weight gain, Denies weight loss Ears, nose, mouth and throat: Denies epistaxis, Denies nasal congestion, Denies post-nasal drip, Denies sinus pain, Denies sinus pressure, Denies sore throat Cardiovascular: Reports shortness of breath, Denies chest pain, Denies lightheadedness, Denies orthopnea, Denies palpitations, Denies paroxysmal nocturnal dyspnea Respiratory: Reports home oxygen, Denies congestion, Denies cough, Denies cough with sputum, Denies hemoptysis, Denies wheezing Gastrointestinal: Denies abdominal pain, Denies change in bowel habits, Denies diarrhea, Denies hematemesis, Denies nausea, Denies vomiting Genitourinary: Denies dysuria, Denies flank pain Musculoskeletal: Denies limitation of motion Integumentary: Denies rash Neurological: Denies head injury, Denies headaches, Denies seizures, Denies syncope Psychiatric: Denies anxiety, Denies depression Past Medical History Past Medical History: Asthma, Diabetes Mellitus, Hyperlipidemia, Hypertension, Osteoarthritis (OA) Additional Past Medical History / Comment(s): ?MOUTH CANCER per patient. was previously borderline diabetic, not on any medications currently History of Any Multi-Drug Resistant Organisms: None Reported Past Surgical History: Cholecystectomy, Hysterectomy, Orthopedic Surgery Additional Past Surgical History / Comment(s): EYE SURGERY. sx to repair dog bite, rt shoulder sx Past Anesthesia/Blood Transfusion Reactions: No Reported Reaction Past Psychological History: Anxiety, Bipolar, Depression Smoking Status: Current every day smoker, Vaper Past Alcohol Use History: None Reported Past Drug Use History: Marijuana, Opiates - Past Family History Sister(s) Family Medical History: Cancer Additional Family Medical History / Comment(s): breast Medications and Allergies Home Medications Medication Instructions Recorded Confirmed Type DULoxetine HCL [Cymbalta] 120 mg PO DAILY 07/03/20 10/14/24 History Ezetimibe [Zetia] 10 mg PO DAILY 07/03/20 10/14/24 History Montelukast [Singulair] 10 mg PO DAILY 07/03/20 10/14/24 History Bumetanide [BUMEX] 0.5 mg PO DAILY 04/12/21 10/14/24 History cloZAPine [Clozaril] 100 mg PO HS 04/12/21 10/14/24 History Anastrozole [Arimidex] 1 mg PO DAILY 07/18/21 10/14/24 History Ascorbic Acid [Vitamin C] 500 mg PO DAILY 07/18/21 10/14/24 History Omeprazole 20 mg PO DAILY 07/18/21 10/14/24 History Potassium Chloride [Klor-Con 10 ER] 10 meq PO DAILY 07/18/21 10/14/24 History lisinopriL [Zestril] 5 mg PO DAILY 07/18/21 10/14/24 History ALPRAZolam [Xanax] 1 mg PO DAILY PRN 11/28/22 10/14/24 History Albuterol Inhaler [Ventolin Hfa 1 puff INHALATION RT-Q4H PRN 11/28/22 10/14/24 History Inhaler] Divalproex ER [Depakote ER] 1,000 mg PO HS 11/28/22 10/14/24 History EPINEPHrine (Auto Inject) [Epipen] 0.3 mg IM ONCE PRN 11/28/22 10/14/24 History Pravastatin Sodium [Pravachol] 40 mg PO DAILY 11/28/22 10/14/24 History polyethylene glycoL 3350 [Miralax] 17 gm PO DAILY PRN 11/28/22 10/14/24 History ALPRAZolam [Xanax] 1 mg PO DAILY@1700 10/14/24 10/14/24 History Acetaminophen Tab [Tylenol Tab] 500 mg PO DAILY 10/14/24 10/14/24 History Acetaminophen [Tylenol] 325 mg PO Q4H PRN 10/14/24 10/14/24 History Budesonide [Pulmicort] 0.5 mg INHALATION RT-BID 10/14/24 10/14/24 History Diclofenac Sodium Gel [Voltaren 1% 1 applic TOPICAL BID 10/14/24 10/14/24 Hi story Gel] Docusate [Colace] 100 mg PO DAILY PRN 10/14/24 10/14/24 History Ft Antacid-[place] Liquid 10 ml PO DIRECTED PRN 10/14/24 10/14/24 History HYDROcodone/APAP 7.5-325MG [[place] 1 tab PO BID PRN 10/14/24 10/14/24 History 7.5-325] Ipratropium-Albuterol Nebulize 3 ml INHALATION RT-QID PRN 10/14/24 10/14/24 History [Duoneb 0.5 mg-3 mg/3 ml Soln] Kaopectate Vanilla Liquid 30 ml PO Q30M PRN MDD 240ml (8 10/14/24 10/14/24 History doses) Linaclotide [Linzess] 145 mcg PO DAILY 10/14/24 10/14/24 History Magnesium Hydroxide [Milk of 2,400 mg PO DAILY PRN 10/14/24 10/14/24 History Magnesia] Na Phos,M-B/Na Phos,Di-Ba [Fleet 133 ml RECTAL DAILY PRN 10/14/24 10/14/24 History Adult] Oxybutynin ER [Ditropan XL] 15 mg PO BID 10/14/24 10/14/24 History allopurinoL 200 mg PO DAILY 10/14/24 10/14/24 History bisacodyL [Dulcolax] 10 mg RECTAL DAILY PRN 10/14/24 10/14/24 History fluPHENAZine [Prolixin 5MG] 5 mg PO BID@0800,1700 10/14/24 10/14/24 History guaiFENesin SYRUP 100MG/5ML 200 mg PO Q6H PRN 10/14/24 10/14/24 History [Robitussin] metFORMIN HCL [metFORMIN HCL ER] 750 mg PO DAILY@1700 10/14/24 10/14/24 History Allergies Allergy/AdvReac Type Severity Reaction Status Date / Time bee venom protein (honey bee) Allergy Severe Anaphylaxis Verified 10/14/24 15:20 lemon Allergy Severe Anaphylaxis Verified 10/14/24 15:20 Penicillins Allergy Severe Anaphylaxis Verified 10/14/24 15:20 tramadol [From Ultram] Allergy Severe Anaphylaxis Verified 10/14/24 15:20 latex Allergy Mild Rash/Hives Verified 10/14/24 15:20 tablet vitamins Allergy Severe Anaphylaxis Uncoded 10/14/24 13:41 rootbeer pop Allergy Intermediate Rash/Hives Uncoded 10/14/24 13:41 Physical Exam Vitals: Vital Signs Temp Pulse Pulse Resp BP BP Pulse Ox 10/15/24 00:45 97.9 F 85 18 133/79 91 L 10/14/24 20:00 98.1 F 91 20 154/70 92 L 10/14/24 19:38 91 20 113/75 94 L 10/14/24 19:34 92 10/14/24 19:26 90 10/14/24 16:51 90 20 102/91 93 L 10/14/24 16:16 88 10/14/24 16:03 90 10/14/24 13:30 98.4 F 90 22 117/91 93 L Intake and Output 10/14/24 10/14/24 10/15/24 14:59 22:59 06:59 Intake Total 240 Balance 240 Intake: Oral 240 Other: # Voids 3 # Bowel Movements 4 4 Weight 117.934 kg GENERAL EXAM: Alert, morbidly obese 58-year-old female, has just ambulated back from the bedside commode, not in any respiratory distress, on 3 L/min nasal cannula. HEAD: Normocephalic and atraumatic EYES: Normal reaction of pupils, equal size. NOSE: Clear with pink turbinates. THROAT: No erythema or exudates. NECK: No masses, no JVD. CHEST: No chest wall deformity. LUNGS: Equal air entry with no crackles, wheeze, rhonchi or dullness. No conversational dyspnea or accessory muscle use.. CVS: S1 and S2 normal with no audible murmur, regular rhythm. No extra heart sounds ABDOMEN: No hepatosplenomegaly, active bowel sounds, no guarding or rigidity. SPINE: No scoliosis or deformity SKIN: No rashes CENTRAL NERVOUS SYSTEM: No focal deficits, tone is normal in all 4 extremities. EXTREMITIES: There is n mild nonpitting lower extremity edema bilaterally. No clubbing or cyanosis. Peripheral pulses are intact. Results - Laboratory Findings CBC and BMP: 10/15/24 04:16 10/15/24 04:16 Abnormal lab findings: Abnormal Labs 10/14/24 10/15/24 10/15/24 20:36 00:27 00:27 WBC 15.46 H MCHC 31.7 L RDW 16.5 H MPV 9.3 L Sodium 134 L Chloride 92 L BUN 18 H Creatinine 0.47 L Glucose 184 H POC Glucose (mg/dL) 181 H - Diagnostic Findings Chest x-ray: image reviewed Assessment and Plan Assessment: Acute on chronic hypoxemic respiratory failure, currently on 3 L/min nasal cannula, chest x-ray reviewed from outside facility, cardiomegaly with possible mild pulmonary vascular congestion. No notable focal infiltrates, pleural effusions, pneumothoraces. Suspect acute CHF exacerbation, with unknown ejection fraction Possible asthma/COPD exacerbation Chronic hypoxemic respiratory failure Acute leukocytosis, no obvious infectious process identified Hypertension History of hyperlipidemia Diabetes mellitus type 2 History of right breast cancer with previous right lumpectomy History of schizoaffective disorder Morbid obesity, with a BMI of 43.3 kg/m Plan: Patient's medications, labs, imaging reviewed As far as her oxygen requirements, back on her reported 3 L/min nasal cannula. COPD/asthma does not appear particularly active on my evaluation Previously started on a combination of bronchodilators, budesonide inhalation, and IV Solu-Medrol Viral 4 Plex negative for influenza A/B, RSV, COVID Would hold off on antibiotics Bumex has been resumed Obtain transthoracic echocardiogram we will continue to follow I have personally seen and examined the patient, performed the documentation and the assessment and plan as written. Number of minutes spent on the visit:20 This is a joint evaluation done along with the nurse practitioner. The patient resides in an [facility] home. She is known to have COPD, chronic smoking and chronic hypoxic respiratory failure maintained on oxygen 3 L/min nasal cannula. The patient presented to the hospital because of worsening shortness of breath. Blood work was essentially nonrevealing. The viral screen was negative. I reviewed the chest x-ray and there are some vague perihilar infiltrate along with some cardiomegaly. The patient's proBNP level was then elevated at 62. LFTs were normal. Procalcitonin level is at 0.2. The patient is calm and comfortable. No reported aspiration. No travel history. Will continue to follow. Repeat chest x-ray in the morning. Time with Patient: Greater than 30
[2024-10-15 04:59] LABS: Glucose,Whole Blood 130 mg/dL (70-110)
[2024-10-15] MEDS: PANTOPRAZOLE 40 MG TABLET PO SCH (05:45)
[2024-10-15 06:29] LABS: Glucose,Whole Blood 124 mg/dL (70-110)
--- NOTE | 2024-10-15 07:40 | XR ---
EXAMINATION TYPE: XR chest 1V DATE OF EXAM: 10/15/2024 7:00 AM COMPARISON: 10/14/2024 CLINICAL INDICATION: Female, 58 years old with history of sob, TECHNIQUE: XR chest 1V view(s) obtained. FINDINGS: The heart size is enlarged. The pulmonary vasculature is prominent. Some patchy infiltrates in the left mid and lower lung field IMPRESSION: 1. Correlate for congestive heart failure. 2. More focal left lung infiltrate could be related atelectasis or pneumonia in the differential with atypical pulmonary edema. [facility], Workstation: [id number], 10/15/2024 7:38 AM
[2024-10-15 08:00] LABS: HCT 39.1 % (37.2-46.3); HGB 12.1 g/dL (12.0-15.0); MCH 28.6 pg (27.0-32.0); MCHC 30.9 g/dL (32.0-37.0); MCV 92.4 FL (80.0-97.0); Mean Platelet Volume 9.4 FL (9.5-12.2); NRBC Per 100 WBC 0.02 X 10*3/uL (0.00-0.01); Platelet Count 445 X 10*3/uL (140-440); RBC 4.23 X 10*6/uL (4.10-5.20); RDW 16.7 % (11.5-14.5); WBC 17.45 X 10*3/uL (4.50-10.00)
[2024-10-15 08:35] LABS: Basophils # (A) 0.07 X 10*3/uL (0.00-0.10); Basophils % (A) 0.4 %; Eosinophils # (A) 0.03 X 10*3/uL (0.04-0.35); Eosinophils % (A) 0.2 %; Lymphocytes # (A) 3.83 X 10*3/uL (0.90-5.00); Lymphocytes % (A) 21.9 %; Monocytes # (A) 1.63 X 10*3/uL (0.20-1.00); Monocytes % (A) 9.3 %; Neutrophils # (A) 11.62 X 10*3/uL (1.80-7.70); Neutrophils % (A) 66.7 %; Stomatocytes 2+ (None Seen)
[2024-10-15 08:51] LABS: NT-Pro-B-Type Natriuretic Pept 52 pg/mL (0-125)
[2024-10-15] MEDS: methylPREDNISolone SOD SUCCI 40 MG/ML 1 ML VIAL IV SCH (08:56)
[2024-10-15] MEDS: allopurinoL 100 MG TAB PO SCH (08:56)
[2024-10-15] MEDS: DULoxetine HCL 60 MG CAPSULE.DR PO SCH (08:56)
[2024-10-15] MEDS: PRAVASTATIN SODIUM 40 MG TAB PO SCH (08:56)
[2024-10-15] MEDS: EZETIMIBE 10 MG TAB PO SCH (08:56)
[2024-10-15] MEDS: MONTELUKAST 10 MG TAB PO SCH (08:56)
[2024-10-15] MEDS: ENOXAPARIN 40 MG/0.4 ML SYRINGE SQ SCH (08:57)
[2024-10-15] MEDS: ANASTROZOLE 1 MG TAB PO SCH (08:59)
[2024-10-15] MEDS: BUMETANIDE 0.5 MG TABLET PO SCH (08:59)
[2024-10-15] MEDS ORDERED: BUMETANIDE 0.5 MG TABLET PO SCH (09:00)
[2024-10-15] MEDS: NON FORMULARY DRUG (Linaclotide [Linzess] 145 MCG Capsule) PO SCH (09:00)
[2024-10-15 11:12] LABS: ALT 20 U/L (8-44); AST 26 U/L (13-35); Albumin 4.1 g/dL (3.8-4.9); Albumin/Globulin Ratio 1.11 Ratio (1.60-3.17); Alkaline Phosphatase 130 U/L (41-126); Bilirubin, Conjugated <0.20 mg/dL (0.20-0.40); Blood Urea Nitrogen 15.6 mg/dL (9.0-27.0); Calcium 9.2 mg/dL (8.7-10.3); Carbon Dioxide 29.4 mmol/L (21.6-31.8); Chloride 94 mmol/L (96-109); Globulin 3.7 g/dL (1.6-3.3); Glucose 131 mg/dL (70-110); Potassium 4.2 mmol/L (3.5-5.5); Sodium 137 mmol/L (135-145); Total Bilirubin <0.2 mg/dL (0.3-1.2); Total Protein 7.8 g/dL (6.2-8.2)
[2024-10-15] MEDS: ACETAMINOPHEN TAB 325 MG TAB PO PRN (12:43)
[2024-10-15] MEDS: LORazepam 1 MG/0.5 ML VIAL IV PRN (14:08)
[2024-10-15 14:17] LABS: Glucose,Whole Blood 264 mg/dL (70-110)
[2024-10-15 16:27] LABS: Glucose,Whole Blood 234 mg/dL (70-110)
--- NOTE | 2024-10-15 17:01 | CA ---
Transthoracic Echo Report Name: Natalee Manning Age: 58 Gender: F : 1965 Exam Date: 10/15/2024 14:43 Exam Location: [facility] Ht (in): 65 Wt (lb): 260 Ordering Physician: Chad Montero Attending/Referring Phys: Rest Room Maid Elisa Garza RDCS Procedure CPT: Indications: evaluate LV function Cardiac Hx: Technical Quality: Fair Contrast 1: Total Dose (mL): Contrast 2: Total Dose (mL): MEASUREMENTS (Male / Female) Normal Values 2D ECHO LV Diastolic Diameter PLAX 4.8 cm 4.2 - 5.9 / 3.9 - 5.3 cm LV Systolic Diameter PLAX 3.3 cm IVS Diastolic Thickness 1.3 cm 0.6 - 1.0 / 0.6 - 0.9 cm LVPW Diastolic Thickness 1.3 cm 0.6 - 1.0 / 0.6 - 0.9 cm LV Relative Wall Thickness 0.5 RV Internal Dim ED PLAX 3.7 cm LA Systolic Diameter LX 4.0 cm 3.0 - 4.0 / 2.7 - 3.8 cm M-MODE Aortic Root Diameter MM 3.1 cm AV Cusp Separation MM 2.3 cm DOPPLER AV Peak Velocity 175.5 cm/s AV Peak Gradient 12.3 mmHg MV Area PHT 2.2 cm??? Mitral E Point Velocity 100.7 cm/s Mitral A Point Velocity 115.6 cm/s Mitral E to A Ratio 0.9 MV Deceleration Time 339.4 ms TR Peak Velocity 278.1 cm/s TR Peak Gradient 30.9 mmHg Right Ventricular Systolic Press 39.0 mmHg FINDINGS Left Ventricle Left ventricular ejection fraction is estimated at 55-60 %. Normal left ventricular systolic function with no obvious regional wall motion abnormalities. Left ventricular cavity size normal. Mildly increased left ventricular wall thickness. Right Ventricle Mild right ventricular dilatation. Mild pulmonary hypertension. Right Atrium Right atrium not well visualized. Left Atrium Mildly increased left atrial diameter. No left atrial thrombus or mass present. Mitral Valve Mitral valve thickened. No evidence for mitral valve prolapse. No mitral stenosis. Mild mitral regurgitation. Aortic Valve Trileaflet aortic valve. Aortic valve sclerosis. No aortic regurgitation. No aortic stenosis. Tricuspid Valve Structurally normal tricuspid valve. Mild tricuspid regurgitation. Pulmonic Valve Pulmonic valve not well visualized. No pulmonic regurgitation. Pericardium No pericardial effusion. Aorta Normal size aortic root and proximal ascending aorta. CONCLUSIONS Technically difficult study. Normal left ventricular size and systolic function Mild mitral regurgitation Mild tricuspid regurgitation and mild pulmonary hypertension Previewed by: Dr. Margaret Albrecht MD (Electronically Signed) Final Date: 15 October 2024 17:00
--- NOTE | 2024-10-15 18:09 | XR ---
EXAMINATION TYPE: XR chest 1V DATE OF EXAM: 10/15/2024 6:04 PM COMPARISON: 10/15/2024 CLINICAL INDICATION: Female, 58 years old with history of dyspnea, TECHNIQUE: XR chest 1V views of the chest are obtained. FINDINGS: Demonstrated are scattered senescent parenchymal change. Overall improvement in the pulmonary parenchymal aeration with persistent strandy basilar density see n which may reflect residual infiltrate and/or atelectasis. The heart is stable. Hilar and mediastinal structures are within normal limits. Degenerative changes are seen of the dorsal spine. IMPRESSION: 1. Overall interval improvement noted as discussed above. [facility], , 10/15/2024 6:07 PM
--- NOTE | 2024-10-15 20:36 | P.PN ---
Subjective This is a pleasant 58 years old female with past medical history of COPD. Schizophrenia in assisted living home, and other multiple medical problems as below: Presents because of increasing dyspnea over the last few days associated with cough and as described by the patient as regular phlegm. Patient denies chest pain or abdominal pain but she complains from chronic back pain and knee pain. The patient is also accompanied by her sister and guardian who helped to provide information. Through transfer paper from her assisted living home sta ting patient was not very coherent, hypoxic and 75 to 77% gradually improved while she is on oxygen although this was not confirmed. Patient also complains from frequent falling last time she fell was the day before yesterday. Usually she walks with a cane She does not have any specific GI or GI symptoms. Usually she passes kidney stones and feels some dysuria urgency. But currently she does not have such symptoms. Patient is on home oxygen 3 L via nasal cannula. Patient daughter states that she has been previously admitted for heart failure. Possible also elements of COPD. 10/15 Patient is still sleepy and lethargic Her breathing is improving and oxygen saturation is 97% on 3 L She is less tachypneic Repeat chest x-ray showing improvement proBNP and procalcitonin are negative D-dimer is negative. No significant wheezing but remains on IV Solu-Medrol She is taking [place] 7.5 mg which mild contribute to her drowsiness, will lower the dose from 7.5 mg twice daily and to 5 mg daily. Also will check ABG in the morning Labs showing unremarkable CBC except for mild leukocytosis while she is on steroids. BMP, LFT were unremarkable D-dimer at the transfer paper was negative at 0.53 Active Medications Generic Name Dose Route Start Last Admin Trade Name Freq PRN Reason Stop Dose Admin Acetaminophen 325 mg 10/14/24 19:06 10/15/24 20:01 Acetaminophen Tab 325 Mg Tab PO 325 mg Q4H PRN Administration Pain or Fever > 100.5 Hydrocodone Bitart/Acetaminophen 1 each 10/15/24 20:31 Hydrocodone/Apap 5-325mg 1 Each Tab PO DAILY PRN Pain Albuterol Sulfate 2.5 mg 10/14/24 19:06 Albuterol Nebulized 2.5 Mg/3 Ml INHALATION RT-Q4H PRN Shortness Of Breath Albuterol/Ipratropium 3 ml 10/14/24 20:00 10/15/24 20:26 Ipratropium-Albuterol 3 Ml Neb INHALATION 3 ml RT-QID SHAHID Administration Allopurinol 200 mg 10/15/24 09:00 10/15/24 08:56 Allopurinol 100 Mg Tab PO 200 mg DAILY SHAHID Administration Alprazolam 1 mg 10/14/24 19:06 Alprazolam 1 Mg Tab PO DAILY PRN Anxiety Anastrozole 1 mg 10/15/24 09:00 10/15/24 08:59 Anastrozole 1 Mg Tab PO 1 mg DAILY SHAHID Administration Bisacodyl 10 mg 10/14/24 19:06 Bisacodyl 10 Mg Supp RECTAL DAILY PRN Constipation Budesonide 0.5 mg 10/14/24 20:00 10/15/24 20:26 Budesonide 0.5 Mg/2 Ml Nebu INHALATION 0.5 mg RT-BID SHAHID Administration Bumetanide 0.5 mg 10/16/24 09:00 Bumetanide 0.5 Mg Tablet PO DAILY SHAHID Clozapine 100 mg 10/14/24 21:00 10/14/24 22:33 Clozapine 100 Mg Tab PO 10/20/24 23:00 100 mg HS SHAHID Administration Dextrose/Water 25 ml 10/14/24 19:14 Dextrose 50% Syringe 50 Ml IVP PER PROTOCOL PRN Hypoglycemia Protocol Dextrose/Water 50 ml 10/14/24 19:14 Dextrose 50% Syringe 50 Ml IVP PER PROTOCOL PRN Hypoglycemia Protocol Divalproex Sodium 1,000 mg 10/14/24 21:00 10/14/24 22:33 Divalproex Er 500 Mg Tab.Er.24h PO 1,000 mg HS SHAHID Administration Docusate Sodium 100 mg 10/14/24 19:06 Docusate 100 Mg Cap PO DAILY PRN Constipation Duloxetine HCl 120 mg 10/15/24 09:00 10/15/24 08:56 Duloxetine Hcl 60 Mg Capsule.Dr PO 120 mg DAILY SHAHID Administration Ezetimibe 10 mg 10/15/24 09:00 10/15/24 08:56 Ezetimibe 10 Mg Tab PO 10 mg DAILY SHAHID Administration Enoxaparin Sodium 40 mg 10/15/24 09:00 10/15/24 08:57 Enoxaparin 40 Mg/0.4 Ml Syringe SQ 40 mg DAILY SHAHID Administration Fluphenazine HCl 5 mg 10/15/24 08:00 10/15/24 17:09 Fluphenazine 5 Mg Tab PO 5 mg BID@0800,1700 SHAHID Administration Guaifenesin 200 mg 10/14/24 19:06 Guaifenesin Syrup 100mg/5ml 200 Mg/10 Ml Cup PO Q6H PRN Cough/congestion Insulin Human Lispro 0 unit 10/14/24 21:00 10/15/24 17:09 Insulin Lispro (Humalog) 100 Unit/Ml 10 Ml Vl SQ 2 unit ACHS SHAHID Administration Protocol Lorazepam 0.5 mg 10/15/24 08:26 10/15/24 14:08 Lorazepam 1 Mg/0.5 Ml Vial IV 0.5 mg Q6HR PRN Administration Agitation or Acute Anxiety Methylprednisolone Sodium Succinate 40 mg 10/15/24 08:00 10/15/24 17:08 Methylprednisolone Sod Succi 40 Mg/Ml 1 Ml Vial IV 40 mg Q8HR SHAHID Administration Montelukast Sodium 10 mg 10/15/24 09:00 10/15/24 08:56 Montelukast 10 Mg Tab PO 10 mg DAILY SHAHID Administration Naloxone HCl 0.2 mg 10/14/24 14:51 Naloxone 0.4 Mg/Ml 1 Ml Vial IV Q2M PRN Opioid Reversal Non-Formulary Medication 145 mcg 10/15/24 09:00 10/15/24 09:00 Linaclotide [Linzess] PO Not Given DAILY [facility] Oxybutynin Chloride 15 mg 10/14/24 21:00 10/15/24 08:59 Oxybutynin 15 Mg Tab.Er.24 PO 15 mg BID SHAHID Administration Pantoprazole Sodium 40 mg 10/15/24 07:30 10/15/24 05:45 Pantoprazole 40 Mg Tablet PO 40 mg AC-BRKFST SHAHID Administration Polyethylene Glycol 17 gm 10/14/24 19:06 Polyethylene Glycol 3350 17 Gm Powd.Pack PO DAILY PRN Constipation Pravastatin Sodium 40 mg 10/15/24 09:00 10/15/24 08:56 Pravastatin Sodium 40 Mg Tab PO 40 mg DAILY SHAHID Administration Sodium Biphosphate/Sodium Phosphate 133 ml 10/14/24 19:06 Na Phos,M-B/Na Phos,Di-Ba 133 Ml Enema RECTAL DAILY PRN Constipation Objective - Vital Signs Vital signs: Vital Signs Temp 98.8 F 10/15/24 16:10 Pulse 72 10/15/24 20:27 Resp 16 10/15/24 16:21 BP 127/84 10/15/24 16:10 Pulse Ox 97 10/15/24 16:10 FiO2 Intake & Output 10/15/24 10/15/24 10/16/24 06:59 18:59 06:59 Intake Total 600 2750 Balance 600 2750 Weight 117.934 kg Intake: Oral 600 2750 Other: Voiding Method Diaper Diaper Incontinent External Catheter # Voids 4 3 # Bowel Movements 4 1 - Exam -GENERAL: The patient is alert and oriented x3, partial, drowsy not in any acute distress. Well developed, well nourished. Obese HEENT: Pupils are round and equally reacting to light. EOMI. No scleral icterus. No conjunctival pallor. Normocephalic, atraumatic. No pharyngeal erythema. No thyromegaly. CARDIOVASCULAR: S1 and S2 present. No murmurs, rubs, or gallops. -PULMONARY: Chest is clear to auscultation, mild bilateral scattered wheezing , no crackles. ABDOMEN: Soft, nontender, nondistended, normoactive bowel sounds. No palpable organomegaly. MUSCULOSKELETAL: No joint swelling or deformity. EXTREMITIES: No cyanosis, clubbing, or pedal edema. NEUROLOGICAL: Gross neurological examination did not reveal any focal deficits. SKIN: No rashes. no petechiae. - Labs CBC & Chem 7: 10/15/24 04:16 10/15/24 04:16 Labs: Abnormal Lab Results - Last 24 Hours (Table) 10/14/24 10/15/24 10/15/24 Range/Units 20:36 00:27 00:27 WBC 15.46 H (4.50-10.00) 10*3/uL MCHC 31.7 L (32.0-37.0) g/dL RDW 16.5 H (11.5-14.5) % Plt Count (140-440) X 10*3/uL MPV 9.3 L (9.5-12.2) fL Immature Gran # (0.00-0.04) X 10*3/uL Neutrophils # (1.80-7.70) X 10*3/uL Monocytes # (0.20-1.00) X 10*3/uL Eosinophils # (0.04-0.35) X 10*3/uL NRBC/100 WBC Diff (0.00-0.01) X 10*3/uL Stomatocytes (None Seen) Sodium 134 L (137-145) mmol/L Chloride 92 L (98-107) mmol/L Anion Gap (4.00-12.00) mmol/L BUN 18 H (7-17) mg/dL Creatinine 0.47 L (0.52-1.04) mg/dL BUN/Creatinine Ratio (12.00-20.00) Ratio Glucose 184 H (74-99) mg/dL POC Glucose (mg/dL) 181 H (70-110) mg/dL Hemoglobin A1c (<=6.0) % Total Bilirubin (0.3-1.2) mg/dL Alkaline Phosphatase (41-126) U/L Globulin (1.6-3.3) g/dL Albumin/Globulin Ratio (1.60-3.17) Ratio 10/15/10/15/24/ Range/Units 04:16 04:16 04:16 WBC 17.45 H (4.50-10.00) 10*3/uL MCHC 30.9 L (32.0-37.0) g/dL RDW 16.7 H (11.5-14.5) % Plt Count 445 H (140-440) X 10*3/uL MPV 9.4 L (9.5-12.2) fL Immature Gran # 0.27 H (0.00-0.04) X 10*3/uL Neutrophils # 11.62 H (1.80-7.70) X 10*3/uL Monocytes # 1.63 H (0.20-1.00) X 10*3/uL Eosinophils # 0.03 L (0.04-0.35) X 10*3/uL NRBC/100 WBC Diff 0.02 H (0.00-0.01) X 10*3/uL Stomatocytes 2+ A (None Seen) Sodium (137-145) mmol/L Chloride 94 L (98-107) mmol/L Anion Gap 13.60 H (4.00-12.00) mmol/L BUN (7-17) mg/dL Creatinine 0.5 L (0.52-1.04) mg/dL BUN/Creatinine Ratio 31.20 H (12.00-20.00) Ratio Glucose 131 H (74-99) mg/dL POC Glucose (mg/dL) (70-110) mg/dL Hemoglobin A1c 7.3 H (<=6.0) % Total Bilirubin <0.2 L (0.3-1.2) mg/dL Alkaline Phosphatase 130 H (41-126) U/L Globulin 3.7 H (1.6-3.3) g/dL Albumin/Globulin Ratio 1.11 L (1.60-3.17) Ratio 10/15/24 10/15/24 10/15/24 Range/Units 04:57 06:28 14:16 WBC (4.50-10.00) 10*3/uL MCHC (32.0-37.0) g/dL RDW (11.5-14.5) % Plt Count (140-440) X 10*3/uL MPV (9.5-12.2) fL Immature Gran # (0.00-0.04) X 10*3/uL Neutrophils # (1.80-7.70) X 10*3/uL Monocytes # (0.20-1.00) X 10*3/uL Eosinophils # (0.04-0.35) X 10*3/uL NRBC/100 WBC Diff (0.00-0.01) X 10*3/uL Stomatocytes (None Seen) Sodium (137-145) mmol/L Chloride (98-107) mmol/L Anion Gap (4.00-12.00) mmol/L BUN (7-17) mg/dL Creatinine (0.52-1.04) mg/dL BUN/Creatinine Ratio (12.00-20.00) Ratio Glucose (74-99) mg/dL POC Glucose (mg/dL) 130 H 124 H 264 H (70-110) mg/dL Hemoglobin A1c (<=6.0) % Total Bilirubin (0.3-1.2) mg/dL Alkaline Phosphatase (41-126) U/L Globulin (1.6-3.3) g/dL Albumin/Globulin Ratio (1.60-3.17) Ratio 10/15/24 Range/Units 16:25 WBC (4.50-10.00) 10*3/uL MCHC (32.0-37.0) g/dL RDW (11.5-14.5) % Plt Count (140-440) X 10*3/uL MPV (9.5-12.2) fL Immature Gran # (0.00-0.04) X 10*3/uL Neutrophils # (1.80-7.70) X 10*3/uL Monocytes # (0.20-1.00) X 10*3/uL Eosinophils # (0.04-0.35) X 10*3/uL NRBC/100 WBC Diff (0.00-0.01) X 10*3/uL Stomatocytes (None Seen) Sodium (137-145) mmol/L Chloride (98-107) mmol/L Anion Gap (4.00-12.00) mmol/L BUN (7-17) mg/dL Creatinine (0.52-1.04) mg/dL BUN/Creatinine Ratio (12.00-20.00) Ratio Glucose (74-99) mg/dL POC Glucose (mg/dL) 234 H (70-110) mg/dL Hemoglobin A1c (<=6.0) % Total Bilirubin (0.3-1.2) mg/dL Alkaline Phosphatase (41-126) U/L Globulin (1.6-3.3) g/dL Albumin/Globulin Ratio (1.60-3.17) Ratio Assessment and Plan Assessment: Acute COPD exacerbation Acute on chronic hypoxic respiratory failure chronic CHF exacerbation Metabolic encephalopathy Schizophrenia Obesity with BMI 43.3. Plan: Continue steroids, started emergency room. Currently on IV Solu-Medrol We does Bumex to 0.5 mg which is her home dose Continued oxygen therapy Bronchodilator. Pulmonary team consulted Labs and medication were reviewed.. Continue same treatment. Continue with symptomatic treatment. Resume home medication. Monitor labs and vitals. DVT and GI prophylaxis. Further recommendations as per clinical course of the patient DVT prophylaxis: Subcutaneous h Lovenox GI Prophylaxis: Protonix PT/OT: Pending Prognosis is guarded
[2024-10-15 21:29] LABS: Glucose,Whole Blood 229 mg/dL (70-110)
[2024-10-15] MEDS: HYDROcodone/APAP 7.5-325MG 1 EACH TAB PO ONE (23:52)
[2024-10-16 02:59] VITALS: RESP 17
[2024-10-16 03:59] LABS: Appearance,Urine Cloudy (Clear); Bacteria,Urine Rare /hpf; Bilirubin,Urine Negative (Negative); Blood,Urine Negative (Negative); Color,Urine Colorless; Glucose,Urine (UA) Negative (Negative); Ketones,Urine Negative (Negative); Leukocyte Esterase,Urine Negative (Negative); Nitrite,Urine Negative (Negative); Protein,Urine Negative (Negative); RBC,Urine <1 /hpf (0-5); Specific Gravity,Urine 1.008 (1.001-1.035); Squamous Epithelial Cell,Urine 1 /hpf (0-4); Urobilinogen,Urine <2.0 mg/dL (<2.0); WBC,Urine 3 /hpf (0-5)
[2024-10-16 06:05] LABS: Glucose,Whole Blood 152 mg/dL (70-110)
[2024-10-16 07:33] VITALS: BP 130/79; TEMP 98
[2024-10-16] MEDS: BUMETANIDE 0.5 MG TABLET PO SCH (08:38)
[2024-10-16] MEDS: HYDROcodone/APAP 5-325MG 1 EACH TAB PO PRN ×2 (08:39→15:12)
[2024-10-16] MEDS ORDERED: HYDROcodone/APAP 5-325MG 1 EACH TAB PO PRN (11:43)
[2024-10-16 11:51] LABS: Glucose,Whole Blood 251 mg/dL (70-110)
--- NOTE | 2024-10-16 14:38 | P.PN ---
Subjective Progress Note Date: 10/16/24 Patient is a 58-year-old female with past medical history significant for hypertension, hyperlipidemia, diabetes mellitus, CHF, asthma/COPD, chronic oxygen dependence on 3 L/min nasal cannula, schizophrenia, resides at [facility] home. Patient is a questionable historian. Reportedly, found to be hypoxic at her [facility] home, SpO2 was reading in the mid 70s while on her 3 L/min nasal cannula. She was originally sent to [facility], felt to be in COPD/asthma exacerbation, and transferred to our facility yesterday afternoon. Chest x-ray from outside facility reviewed and remarkable for cardiomegaly with possible mild pulmonary vascular congestion. CBC done at our facility including a WBC count of 15.5, hemoglobin 12, platelets 417. BMP: Sodium 134, potassium 4.6, chloride 92, serum bicarb 30, BUN 18, creatinine 0.47, glucose 184. Viral screen was negative for influenza A/B, RSV, COVID. Patient currently being evaluated on the general medical floor. She is just ambulated back to bed from bedside commode. On 3 L/min nasal cannula. Not in any respiratory distress. As stated above, she is a poor historian. She resides at an ass [facility] home, [facility], in [place]. Does states she is more short of breath than normal. Denies any coughing, sputum production, fevers or chills. She remains afebrile. Denies any chest pain, heart palpitations, syncopal events, lower extremity edema. Denies missing any doses of her Bumex. Previously started on a combination of DuoNebs and IV Solu-Medrol. Hemodynamics are stable. On 10/16/2024, the patient has no specific complaints. Feeling well. R espiratory spastic and wheezy. Remains on bronchodilators. Remains on IV Solu- Medrol 40 mg every 8 hours. She is on DuoNeb updrafts and Pulmicort nebulized treatments twice a day. Home medications below resume. She is currently on 3 L of oxygen by nasal cannula with a pulse ox of 95%. Clinically stable. Hemodynamically stable. Echocardiogram was also completed on 10/15/2024 and the patient was found to have a normal left ventricular ejection fraction with mild degree of pulm hypertension otherwise no significant valvular abnormalities. Objective - Vital Signs Vital signs: Vital Signs Temp 98.0 F 10/16/24 07:00 Pulse 85 10/16/24 08:26 Resp 17 10/16/24 07:00 BP 130/79 10/16/24 07:00 Pulse Ox 95 10/16/24 08:26 FiO2 Intake & Output 10/15/24 10/16/24 10/16/24 18:59 06:59 18:59 Intake Total 2750 1999 Balance 2750 1999 Intake: Oral 2750 1999 Other: Voiding Method Diaper Toilet # Voids 3 1 3 # Bowel Movements 1 - Exam GENERAL EXAM: Alert, morbidly obese 58-year-old female, has just ambulated back from the bedside commode, not in any respiratory distress, on 3 L/min nasal cannula. HEAD: Normocephalic and atraumatic EYES: Normal reaction of pupils, equal size. NOSE: Clear with pink turbinates. THROAT: No erythema or exudates. NECK: No masses, no JVD. CHEST: No chest wall deformity. LUNGS: Equal air entry with no crackles, wheeze, rhonchi or dullness. No conversational dyspnea or accessory muscle use.. CVS: S1 and S2 normal with no audible murmur, regular rhythm. No extra heart sounds ABDOMEN: No hepatosplenomegaly, active bowel sounds, no guarding or rigidity. SPINE: No scoliosis or deformity SKIN: No rashes CENTRAL NERVOUS SYSTEM: No focal deficits, tone is normal in all 4 extremities. EXTREMITIES: There is n mild nonpitting lower extremity edema bilaterally. No clubbing or cyanosis. Peripheral pulses are intact. - Labs CBC & Chem 7: 10/15/24 04:16 10/15/24 04:16 Labs: Abnormal Lab Results - Last 24 Hours (Table) 10/15/24 10/15/24 10/15/24 Range/Units 14:16 16:25 21:28 POC Glucose (mg/dL) 264 H 234 H 229 H (70-110) mg/dL Urine Appearance (Clear) Urine Bacteria (None) /hpf 10/16/24 10/16/24 Range/Units 03:45 05:57 POC Glucose (mg/dL) 152 H (70-110) mg/dL Urine Appearance Cloudy H (Clear) Urine Bacteria Rare H (None) /hpf Assessment and Plan Assessment: Acute on chronic hypoxemic respiratory failure, currently on 3 L/min nasal cannula, chest x-ray reviewed from outside facility, cardiomegaly with possible mild pulmonary vascular congestion. No notable focal infiltrates, pleural effusions, pneumothoraces. Suspect acute CHF exacerbation, with unknown ejection fraction Possible asthma/COPD exacerbation Chronic hypoxemic respiratory failure Acute leukocytosis, no obvious infectious process identified Hypertension History of hyperlipidemia Diabetes mellitus type 2 History of right breast cancer with previous right lumpectomy History of schizoaffective disorder Morbid obesity, with a BMI of 43.3 kg/m Plan: Clinically improved and back to her baseline As far as her oxygen requirements, back on her reported 3 L/min nasal cannula. Previously started on a combination of bronchodilators, budesonide inhalation, and IV Solu-Medrol The patient will be switched to prednisone burst taper at time of discharge Viral 4 Plex negative for influenza A/B, RSV, COVID Would hold off on antibiotics Bumex has been resumed Echo was noted Possible discharge today
[2024-10-16 15:40] VITALS: PULSE 84
--- NOTE | 2024-10-16 23:33 | P.DS ---
Providers Date of admission: 10/14/24 14:52 Attending physician: Marv Orlando MD Consults: 10/14/24 14:51 Consult Physician Urgent Consulting Provider: Alejandra Rhodes Consult Reason/Comments: Acute hypoxic respiratory failure, chronic respiratory insufficiency, copd Do you want consulting provider notified?: Yes Primary care physician: James Looney [facility] Course: Diagnoses: Acute COPD exacerbation Acute on chronic hypoxic respiratory failure chronic CHF exacerbation Metabolic encephalopathy Schizophrenia Obesity with BMI 43.3. Hospital course: This is a pleasant 58 years old female with past medical history of COPD. Schizophrenia in assisted living home, and other multiple medical problems as below: Presents because of increasing dyspnea over the last few days associated with cough and as described by the patient as regular phlegm. Patient was found to have acute COPD exacerbation and she was treated with IV Solu-Medrol and short interval improvement also patient evaluated by horizontal boring mill set up operator who cleared her for discharge. Patient today was more awake and alert after lowering her [place]. She follow-up with Dr. Viet Rodriguez who put her on [place] 7.5 mg twice daily for her hip pain and spine pain which looks controlled but she become more sleepy and that may contribute to her dyspnea as well therefore I explained to the patient delivered to once daily. She said she is going to follow-up with Dr. Elias to Patient denies any other new complaint. Was very eager to be discharged to her [place] [facility] facility today Patient was cleared for discharge by pulmonary service as above Problems and management plan were discussed with the patient and he verbalized understanding and acceptance Patient was found stable and can be discharged home in guarded prognosis however he needs follow-up as an outpatient. Patient was instructed to follow up with PCP Dr. Looney within one week and patient agrees Patient was instructed to follow-up with Dr. Kong in 2 weeks and she agrees Physical exam Gen: patient is a AAOx3, no distress CVS: S1-S2, RRR, no murmur Lungs: B/L CTA, no wheezing Abdomen: soft, no distention, no tenderness, positive bowel sounds Extremity: no leg edema or induration Time spent more than 35 minutes Patient Condition at Discharge: Stable Plan - Discharge Summary Discharge Rx Participant: Yes New Discharge Prescriptions: New predniSONE 10 mg PO DIRECTED #30 tab Continue Montelukast [Singulair] 10 mg PO DAILY DULoxetine HCL [Cymbalta] 120 mg PO DAILY Ezetimibe [Zetia] 10 mg PO DAILY lisinopriL [Zestril] 5 mg PO DAILY Omeprazole 20 mg PO DAILY Potassium Chloride [Klor-Con 10 ER] 10 meq PO DAILY Ascorbic Acid [Vitamin C] 500 mg PO DAILY EPINEPHrine (Auto Inject) [Epipen] 0.3 mg IM ONCE PRN PRN Reason: Anaphylaxis polyethylene glycoL 3350 [Miralax] 17 gm PO DAILY PRN PRN Reason: Constipation ALPRAZolam [Xanax] 1 mg PO DAILY PRN PRN Reason: Anxiety Albuterol Inhaler [Ventolin Hfa Inhaler] 1 puff INHALATION RT-Q4H PRN PRN Reason: Shortness Of Breath Divalproex ER [Depakote ER] 1,000 mg PO HS Ft Antacid-[place]igas Liquid 10 ml PO DIRECTED PRN PRN Reason: antacid/antigas Kaopectate Vanilla Liquid 30 ml PO Q30M PRN MDD 240ml (8 doses) PRN Reason: Gi Upset Acetaminophen [Tylenol] 325 mg PO Q4H PRN PRN Reason: Pain Or Fever > 100.5 guaiFENesin SYRUP 100MG/5ML [Robitussin] 200 mg PO Q6H PRN PRN Reason: Cough/congestion Oxybutynin ER [Ditropan XL] 15 mg PO BID cloZAPine [Clozaril] 100 mg PO HS Bumetanide [BUMEX] 0.5 mg PO DAILY Anastrozole [Arimidex] 1 mg PO DAILY Pravastatin Sodium [Pravachol] 40 mg PO DAILY Acetaminophen Tab [Tylenol] 500 mg PO DAILY allopurinoL 200 mg PO DAILY ALPRAZolam [Xanax] 1 mg PO DAILY@1700 bisacodyL [Dulcolax] 10 mg RECTAL DAILY PRN PRN Reason: Constipation Budesonide [Pulmicort] 0.5 mg INHALATION RT-BID Diclofenac Sodium Gel [Voltaren 1% Gel] 1 applic TOPICAL BID Docusate [Colace] 100 mg PO DAILY PRN PRN Reason: Constipation fluPHENAZine [Prolixin] 5 mg PO BID@0800,1700 Ipratropium-Albuterol Nebulize [Duoneb 0.5 mg-3 mg/3 ml Soln] 3 ml INHALATION RT-QID PRN PRN Reason: Shortness Of Breath Linaclotide [Linzess] 145 mcg PO DAILY Magnesium Hydroxide [Milk of Magnesia] 2,400 mg PO DAILY PRN PRN Reason: Constipation metFORMIN HCL [metFORMIN HCL ER] 750 mg PO DAILY@1700 Na Phos,M-B/Na Phos,Di-Ba [Fleet Adult] 133 ml RECTAL DAILY PRN PRN Reason: Constipation Changed HYDROcodone/APAP 7.5-325MG [[place] 7.5-325] 1 tab PO DAILY PRN #0 PRN Reason: Pain Discharge Medication List DULoxetine HCL [Cymbalta] 120 mg PO DAILY 07/03/20 [History] Ezetimibe [Zetia] 10 mg PO DAILY 07/03/20 [History] Montelukast [Singulair] 10 mg PO DAILY 07/03/20 [History] Bumetanide [BUMEX] 0.5 mg PO DAILY 04/12/21 [History] cloZAPine [Clozaril] 100 mg PO HS 04/12/21 [History] Anastrozole [Arimidex] 1 mg PO DAILY 07/18/21 [History] Ascorbic Acid [Vitamin C] 500 mg PO DAILY 07/18/21 [History] Omeprazole 20 mg PO DAILY 07/18/21 [History] Potassium Chloride [Klor-Con 10 ER] 10 meq PO DAILY 07/18/21 [History] lisinopriL [Zestril] 5 mg PO DAILY 07/18/21 [History] ALPRAZolam [Xanax] 1 mg PO DAILY PRN 11/28/22 [History] Albuterol Inhaler [Ventolin Hfa Inhaler] 1 puff INHALATION RT-Q4H PRN 11/28/22 [History] Divalproex ER [Depakote ER] 1,000 mg PO HS 11/28/22 [History] EPINEPHrine (Auto Inject) [Epipen] 0.3 mg IM ONCE PRN 11/28/22 [History] Pravastatin Sodium [Pravachol] 40 mg PO DAILY 11/28/22 [History] polyethylene glycoL 3350 [Miralax] 17 gm PO DAILY PRN 11/28/22 [History] ALPRAZolam [Xanax] 1 mg PO DAILY@1700 10/14/24 [History] Acetaminophen Tab [Tylenol] 500 mg PO DAILY 10/14/24 [History] Acetaminophen [Tylenol] 325 mg PO Q4H PRN 10/14/24 [History] Budesonide [Pulmicort] 0.5 mg INHALATION RT-BID 10/14/24 [History] Diclofenac Sodium Gel [Voltaren 1% Gel] 1 applic TOPICAL BID 10/14/24 [History] Docusate [Colace] 100 mg PO DAILY PRN 10/14/24 [History] Ft Antacid-Antigas Liquid 10 ml PO DIRECTED PRN 10/14/24 [History] Ipratropium-Albuterol Nebulize [Duoneb 0.5 mg-3 mg/3 ml Soln] 3 ml INHALATION RT-QID PRN 10/14/24 [History] Kaopectate Vanilla Liquid 30 ml PO Q30M PRN MDD 240ml (8 doses) 10/14/24 [History] Linaclotide [Linzess] 145 mcg PO DAILY 10/14/24 [History] Magnesium Hydroxide [Milk of Magnesia] 2,400 mg PO DAILY PRN 10/14/24 [History] Na Phos,M-B/Na Phos,Di-Ba [Fleet Adult] 133 ml RECTAL DAILY PRN 10/14/24 [History] Oxybutynin ER [Ditropan XL] 15 mg PO BID 10/14/24 [History] allopurinoL 200 mg PO DAILY 10/14/24 [History] bisacodyL [Dulcolax] 10 mg RECTAL DAILY PRN 10/14/24 [History] fluPHENAZine [Prolixin] 5 mg PO BID@0800,1700 10/14/24 [History] guaiFENesin SYRUP 100MG/5ML [Robitussin] 200 mg PO Q6H PRN 10/14/24 [History] metFORMIN HCL [metFORMIN HCL ER] 750 mg PO DAILY@1700 10/14/24 [History] HYDROcodone/APAP 7.5-325MG [[place] 7.5-325] 1 tab PO DAILY PRN #0 10/16/24 [Rx] predniSONE 10 mg PO DIRECTED #30 tab 10/16/24 [Rx] Follow up Appointment(s)/Referral(s): James Looney MD [Primary Care Provider] - 1-2 days Alejandra Rhodes MD [STAFF PHYSICIAN] - 2 Weeks Activity/Diet/Wound Care/Special Instructions: Low carbohydrate diet Activity is restricted till you see your doctor Discharge Disposition: HOME SELF-CARE
== END 2024-10-16 16:05 | disposition home or self-care (01) ==
LOC: EC 13:24 → 6NMEDSUR 14:52 → EEVIPCON 14:52 → 6NMEDSUR 17:32 → 4SSUR 17:42
PROVIDERS: ADMIT Internal Medicine; ATTEND Internal Medicine
DX: J44.1 Chronic obstructive pulmonary disease with (acute) exacerbation (principal); J96.21 Acute and chronic respiratory failure with hypoxia; I11.0 Hypertensive heart disease with heart failure; I50.9 Heart failure, unspecified; G93.41 Metabolic encephalopathy; E78.5 Hyperlipidemia, unspecified; F31.9 Bipolar disorder, unspecified; F41.9 Anxiety disorder, unspecified; E11.9 Type 2 diabetes mellitus without complications; D72.829 Elevated white blood cell count, unspecified; F25.9 Schizoaffective disorder, unspecified; F17.290 Nicotine dependence, other tobacco product, uncomplicated; E66.01 Morbid (severe) obesity due to excess calories; Z68.41 Body mass index [BMI] 40.0-44.9, adult; Z85.3 Personal history of malignant neoplasm of breast; Z85.819 Personal history of malignant neoplasm of unspecified site of lip, oral cavity, and pharynx; Z99.81 Dependence on supplemental oxygen; Z79.811 Long term (current) use of aromatase inhibitors; Z79.899 Other long term (current) drug therapy; Z88.0 Allergy status to penicillin; Z91.040 Latex allergy status
CPT/HCPCS: 96376 ×2; 96372 ×2; 96374; 96375; 99285; 94640 ×5; 94760 ×2; 93306; 97162; 97166; 83880; 80048; 80076; 85025; 85027; 81001; 83036; 84145; 87636; 71045; G0378 ×4; J2060; J1650 ×2; S0136 ×2; S0170 ×2; J2919 ×2

== ENCOUNTER → 2024-10-29 | Outpatient (CLI) | payer MEDICARE, OTHER ==
--- NOTE | 2024-10-29 11:15 | MM ---
Reason for Exam: Screening (asymptomatic). Last screening mammogram was performed 12 month(s) ago. Patient History: Menarche at age 12. First Full-Term at age 21. Hysterectomy at age 37. Breast cancer, right, age 54. Previous chest radiation therapy at age 54. Estrogen, starting at age 37 for 3 years. 08/08/2020, Lumpectomy on the Right side. 08/08/2020, Malignant Core Biopsy on the right side. 07/14/2020, Malignant Core Biopsy on the right side. Sister had breast cancer at or over age 50. Prior Study Comparison: 03/26/2022 Right Diagnostic Mammogram, [facility]. 10/10/2022 Bilateral MG 3D diag mammo w/cad [facility], [facility]. 10/22/2023 Bilateral MG 3D diag mammo w/cad [facility], [facility]. Tissue Density: There are scattered areas of fibroglandular density. Findings: Analyzed By CAD. Right breast surgical clips. Right breast: There is no suspicious group of microcalcifications or new suspicious mass. Left breast: There is no suspicious group of microcalcifications or new suspicious mass. Overall Assessment: Benign, BI-RAD 2 Management: Screening Mammogram of both breasts in [address] [facility] will attempt to contact patient to return for supplemental views and ultrasound if indicated. Patient should continue monthly self-breast exams. A clinical breast exam by your physician is recommended on an annual basis. This exam should not preclude additional follow-up of suspicious palpable abnormalities. Note on Ariana scores and lifetime risk: 1. A Ariana score greater than 3% is considered moderate risk. If this is the case, consider specialist referral to assess eligibility for a risk reducing agent. 2. If overall lifetime risk for the development of breast cancer is 20% or higher, the patient may qualify for future screening with alternating mammogram and breast MRI. [facility], , 10/29/2024 11:11 AM. Electronically signed and approved by: Iker Sanabria DO
== END | disposition home or self-care (01) ==
LOC: RADMAMWWP 09:58
PROVIDERS: ATTEND Surgery
DX: Z12.31 Encounter for screening mammogram for malignant neoplasm of breast (principal); R92.323 Mammographic fibroglandular density, bilateral breasts; Z85.3 Personal history of malignant neoplasm of breast; Z80.3 Family history of malignant neoplasm of breast
CPT/HCPCS: 77063; 77067

== ENCOUNTER → 2025-01-06 | Outpatient (CLI) | payer MEDICARE, OTHER ==
[2025-01-06 12:52] VITALS: BP 141/80; PULSE 90; RESP 17; TEMP 98
--- NOTE | 2025-01-06 12:58 | P.PN ---
Subjective Progress Note Date: 01/06/25 Principal diagnosis: stage 1 right breast cancer 04/30/24 10-24-23 Stage IA right breast cancer/breakdown of the incision Natalee is a 56-year-old white female status post right breast lumpectomy and axillary node resection performed on . Pathology revealed an ER/NY positive HER-2/haleigh negative G2 tumor which was 4 mm in size. The surgical margins were free. Several lymph nodes were removed all negative for malignancy. Postprocedure she developed a seroma and this was drained several times. The patient subsequently underwent radiation therapy of the whole breast over a three-week period which was completed Nov 03 2020. The patient was seen in the emergency room at [facility] on secondary to an opening in the incision, she returned on with a complaint of discomfort at this site. She was seen in wound clinic in 02-01-21. She did not receive any chemotherapy. She is on anastrozole. she was treated with a wound vac, with complete healing of the wound She did not have any chemotherapy She is on Anastrazole patient had a computed tomography scan of the chest abdomen and pelvis which showed no definitive evidence of metastatic disease except several pulmonary nodules of unknown significance. A repeat computed tomography scan will be ordered by medical oncology. This was done at [facility] as per the patient. We do not have the report. She has had a significant weight gain since her last visit now 117 KG. BMI 44.3, was 36.5 on last visit. Bilateral mammogram performed on 10-22-23 benign BIRADS 2 She is not complaining of any changes in her breast The patient is not complaining of any new lumps masses or nodules of concern. She is seen in consultation with Ijeoma Santiago from the [facility], prior caregiver was Gracie Palacios She has gained about 60 pounds since her last visit She is taking Anastrazole from Dr. Hernandez 1. Patient's computed tomography scan was repeated on which showed resolution of groundglass opacity no pulmonary nodules identified Patient to follow up with Dr. Hernandez in March 2023 not sure if she saw her Patient to continue anastrozole She continues to chew tobacco, she was advised to stop this. 01-06-25 Natalee is a 58-year-old white female status post right breast lumpectomy and axillary node resection performed on . Pathology revealed an ER/NY positive HER-2/haleigh negative G2 tumor which was 4 mm in size. The surgical ma rgins were free. Several lymph nodes were removed all negative for malignancy. Postprocedure she developed a seroma and this was drained several times. The patient subsequently underwent radiation therapy of the whole breast over a three-week period which was completed Nov 03 2020. The patient was seen in the emergency room at [facility] on secondary to an opening in the incision, she returned on with a complaint of discomfort at this site. She was seen in wound clinic in 02-01-21. She did not receive any chemotherapy. She is on anastrozole. she was treated with a wound vac, with complete healing of the wound She is not complaining of any new lumps masses or nodules of concern in either breast. She tore the meniscus in both of her knees and is having some di fficulty with ambulation. She did not have any chemotherapy She is on Anastrazole Bilateral mammogram performed on 10-29-24 benign BIRADS 2 personally reviewed The patient approximately 2 weeks ago tripped and poked a hole in her lower inner right breast with her oxygen compressor. Following this it became black and blue and swollen and now she has some erythema at the site. She has no fever or chills. She is on Bactrim. Since she was last seen she has become oxygen dependent/she has a diagnosis of CHF. She is seen with her student career development specialist: Nevaeh Pelletier Caffeine: 4-5 cups coffee and ice tea/day nicotine: vape, chews tobacco 1 can a day, smokes 1/2 PPD stopped this only vapes and chews chocolate: occasional Family History: sister: breast cancer cousin (paternal): colon cancer Hormonal History: menarche: 12 , 2 miscarriages, breast fed: no, age at first : 20 menopause: total hysterectomy in 30's for endometriosis BCP: no, estrogen: 1 month after surgery Surgical History: Hysterectomy total Gallbladder Dog bite eye surgery bilateral right shoulder surgery right knee surgery right breast lumpectomy and axillary node resection bladder suspension right knee appendix left hip sciatic nerve burned by DR. Goodwin Medical History: asthma back and hip pain suicidal thoughts stopped Bipolar back pain/sciatic nerve CHF oxygen dependant Social History: nicotine: chews tobacco; smokes 1-2/day, vapes alcohol: stopped drugs: Medical marijuana for back and hip pain - Constitutional Constitutional: Denies chills, Denies fever - EENT Eyes: bilateral as per HPI Ears: bilateral: tinnitus Ears, nose, mouth and throat: Denies headache, Denies sore throat - Breasts Breasts: bilateral: as per HPI - Cardiovascular Comment: asthma Cardiovascular: Denies chest pain, Denies shortness of breath - Respiratory Comment: asthma - Gastrointestinal Comment: PUD - Genitourinary (Female) Genitourinary: Denies dysuria, Denies hematuria - Menstruation Menstruation: Reports post hysterectomy - Musculoskeletal Comment: arthritis, back and hip pain Musculoskeletal: Denies myalgias - Integumentary Integumentary: Denies pruritus, Denies rash - Neurological Neurological: Denies numbness, Denies weakness - Psychiatric Comment: bipolar Psychiatric: Reports anxiety, Reports depression - Endocrine Endocrine: Denies fatigue, Denies weight change - Hematologic/Lymphatic Comment: none - Allergic/Immunologic Allergic/Immunologic: Reports seasonal allergies - Objective - Constitutional General appearance: Present: cooperative - EENT Eyes: Present: EOMI ENT: Present: hearing grossly normal - Neck Neck: Present: normal ROM - Respiratory Respiratory: bilateral: CTA - Cardiovascular Rhythm: regular Heart sounds: normal: S1, S2 - Integumentary Integumentary: Present: normal turgor - Musculoskeletal Musculoskeletal: Present: gait normal - Psychiatric Psychiatric: Present: A&O x's 3, appropriate affect, intact judgment & insight - Additional findings Additional findings: Breast Exam: BRA: 36C Inspection: Bilateral grade 2 ptosis, well-healed scar right breast with some dimpling at the superior periareolar region, swelling medial aspect of the breast with mild erythema and slight fluctuance Palpation: Right breast: Examination reveals fibrocystic changes, postsurgical and postradiation changes, prominent inframammary ridge but no discrete Lumps masses or nodule is of concern, healed puncture wound with mild erythema at the site and slight fluctuance, the area of firmness related to probable prior hematoma is approximately 4 cm x 4 cm Right axilla: No adenopathy of concern Left breast: No dominant masses or nodules of concern, fibrocystic changes Left axilla: No adenopathy of concern Assessment and Plan Assessment: Impression: stage I right breast cancer no evidence of recurrence bilateral mammogram 10-29-24 BIRAD 2 Trauma to right breast with probable hematoma and swelling Plan: Continue anastrozole, follow up with DR. Hernandez Ultrasound of the right breast of area of fluctuance and firmness Repeat bilateral mammogram in October 2025 Patient recommended to stop chewing tobacco, stop smoking, and stop vaping continue to follow with DR. 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 Hernandez
== END ==
LOC: WWCWWP 12:14
PROVIDERS: ATTEND Surgery
DX: C50.911 Malignant neoplasm of unspecified site of right female breast (principal); F12.90 Cannabis use, unspecified, uncomplicated; F17.200 Nicotine dependence, unspecified, uncomplicated; Z91.030 Bee allergy status; Z88.0 Allergy status to penicillin; Z91.040 Latex allergy status; Z91.018 Allergy to other foods; Z88.8 Allergy status to other drugs, medicaments and biological substances